=== PATIENT | male | born 1950 | race Hispanic/Latino ===

== ENCOUNTER 2016-11-07 11:37 | Inpatient (IN) | payer MEDICARE ==
[2016-11-07 11:50] VITALS: BMI 24.7
--- NOTE | 2016-11-07 12:17 | ED PDOC ---
Arrival/HPI - History of Present Illness Time/Duration: Prior to Arrival, < month Symptom Onset: Gradual Symptom Course: Worsening - General Chief Complaint: Weakness/Neurological Deficit Time Seen by Provider: 11/07/16 12:04 - History of Present Illness Narrative History of Present Illness (Text): 11/07/16 12:14 This is a 66 year old male with a PMH notable for DM, HTN, Parkinson's, glaucoma , and HLD presenting with generalized weakness in all 4 extremities x 1 month that became acutely worse this morning. The patient states that he was able to dress himself, but he was not able to navigate the walker for ambulation stating that he was too weak to support his weight on his feet and too weak to move the walker with his arms. The patient reports that this has been an ongoin issue that became acutely worse this morning. The patient reports full compliance with all of his medications. The patient denies fever, chills, chest pain, shortness of breath, abdominal pain, N/V/D/C, changes in bowel/ bladder, and extremity paresthesias. (Yusuf Ardon) Past Medical History - Provider Review Nursing Documentation Reviewed: Yes - Travel History Have you recently traveled outside [place] w/in the past 3 mons?: No - Infectious Disease Hx of Infectious Diseases: None - Tetanus Immunization Tetanus Immunization: Unknown - Cardiac Hx Cardiac Disorders: Yes Hx Hypertension: Yes - Pulmonary Hx Respiratory Disorders: No (SMOKED CIGARETTES PPD QUIT 5 YRS AGO) - Neurological Hx Neurological Disorder: Yes Hx Parkinson's Disease: Yes - HEENT Hx HEENT Disorder: Yes Hx Glaucoma: Yes - Renal Hx Renal Disorder: No - Endocrine/Metabolic Hx Diabetes Mellitus Type 2: Yes - Hematological/Oncological Hx Blood Disorders: No - Integumentary Hx Dermatological Disorder: No - Musculoskeletal/Rheumatological Hx Musculoskeletal Disorders: Yes Hx Falls: Yes Hx Unsteady Gait: Yes (CANE) - Gastrointestinal Hx Gastrointestinal Disorders: No (HERNIA REPAIR,STOMACH SURGERY?) - Genitourinary/Gynecological Hx Genitourinary Disorders: No - Psychiatric Hx Psychophysiologic Disorder: No (SMOKED CIGARETTES PPD QUIT) Hx Depression: No Hx Emotional Abuse: No Hx Physical Abuse: No Hx Substance Use: No - Surgical History Other/Comment: Hernia Repair - Anesthesia Hx Anesthesia: No Hx Anesthesia Reactions: No Hx Malignant Hyperthermia: No - Suicidal Assessment Feels Threatened In Home Enviroment: No - Patient History Narrative Patient History: This is a 66 year old male with a PMH notable for DM, HTN, Parkinson's, glaucoma , and HLD (Yusuf Ardon) Family/Social History - Physician Review Nursing Documentation Reviewed: Yes Family/Social History: No Known Family HX Smoking Status: Former Smoker Hx Alcohol Use: No Hx Substance Use: No Hx Substance Use Treatment: No Allergies/Home Meds Allergies/Adverse Reactions: Allergies No Known Allergies Allergy (Verified 11/07/16 11:47) Home Medications: Home Meds Medication Instructions Recorded Confirmed Atorvastatin Calcium [Lipitor] 10 mg PO DAILY 04/28/14 11/07/16 Bimatoprost [Lumigan 2.5 ml] 1 drop OU DAILY 04/28/14 11/07/16 Ramipril [Altace] 10 mg PO DAILY 04/28/14 11/07/16 Esomeprazole Magnesium [Nexium] 40 mg PO DAILY 02/04/16 11/07/16 QUEtiapine [SEROquel] 25 mg PO DAILY 02/04/16 11/07/16 amLODIPine [Norvasc] 5 mg PO DAILY 02/04/16 11/07/16 Brimonidine 0.2% [Alphagan 0.2% 1 drop OU BID 03/12/16 03/19/16 Opht] Trihexyphenidyl [Artane] 5 mg PO BID 03/12/16 11/07/16 metFORMIN [glucOPHAGE] 500 mg PO DAILY 03/12/16 11/07/16 Carbidopa/Levodopa 25/100 mg 0.5 tab PO Q12 11/07/16 11/07/16 [Sinemet] Review of Systems - Physician Review All systems were reviewed & negative as marked: Yes - Review of Systems Constitutional: absent: Fatigue, Fevers Eyes: absent: Vision Changes, Photophobia ENT: absent: Hearing Changes, Tinnitus Respiratory: absent: SOB, Cough Cardiovascular: absent: Chest Pain, Palpitations Gastrointestinal: absent: Abdominal Pain, Nausea, Vomiting Musculoskeletal: Back Pain, Neck Pain. absent: Arthralgias, Joint Swelling, Myalgias Skin: absent: Rash Neurological: Gait Changes, Other (Generalized Weakness). absent: Headache, Focal Weakness Endocrine: absent: Diaphoresis Hemo/Lymphatic: absent: Adenopathy Psychiatric: absent: Anxiety Physical Exam Vital Signs Reviewed: Yes Temperature: Afebrile Blood Pressure: Normal Pulse: Regular Respiratory Rate: Normal Appearance: Positive for: Well-Appearing, Non-Toxic, Comfortable Pain Distress: None Mental Status: Positive for: Alert and Oriented X 3 - Systems Exam Head: Present: Atraumatic, Normocephalic Pupils: Present: PERRL Extroacular Muscles: Present: EOMI Conjunctiva: Present: Normal Mouth: Present: Moist Mucous Membranes Neck: Present: Normal Range of Motion. No: Lymphadenopathy Respiratory/Chest: Present: Clear to Auscultation, Good Air Exchange. No: Respiratory Distress, Accessory Muscle Use Cardiovascular: Present: Regular Rate and Rhythm, Normal S1, S2. No: Murmurs Abdomen: Present: Normal Bowel Sounds. No: Tenderness, Distention, Peritoneal Signs Upper Extremity: Present: Normal Inspection, Normal ROM, NORMAL PULSES, Neurovascularly Intact, Other (5/5 strenght about the digits B/L, 4/5 symmetrical strength elbow and shoulder B/L). No: Cyanosis, Edema, Tenderness, Swelling, Erythema Lower Extremity: Present: Normal Inspection, NORMAL PULSES, Normal ROM, Neurovascularly Intact, Other (5/5 strength plantar and dorsiflexion B/L, 4/5 strength about B/L hip and knee). No: Edema, CALF TENDERNESS, Cyanosis, Deirdre' s Sign, Tenderness, Swelling, Erythema, Deformity Neurological: Present: GCS=15, CN II-XII Intact, Motor Func Grossly Intact, Normal Sensory Function, Norm Deep Tendon Reflexes, Memory Normal. No: Gait Normal Skin: Present: Warm, Dry, Normal Color. No: Rashes Psychiatric: Present: Alert, Oriented x 3 Vital Signs Temp Pulse Resp BP Pulse Ox 11/07/16 15:00 71 18 123/65 98 11/07/16 13:09 79 18 125/68 98 11/07/16 11:48 98.0 F 87 18 127/71 98 Medical Decision Making - Lab Interpretations I have reviewed the lab results: Yes Interpretation: No clinic. lab abnormalty - RAD Interpretation [place]: ED Physician, Radiologist - EKG Interpretation Interpreted by ED Physician: Yes Type: 12 lead EKG Comparison: Com.w/previous EKG ED Course and Treatment: 11/07/16 12:21 Impression: This is a 66 year old male with a PMH notable for DM, HTN, Parkinson's, glaucoma , and HLD presenting with generalized weakness in all 4 extremities x 1 month that became acutely worse this morning. The patient appears comfortable in bed. Gradual weakness has become acutely worse this morning the patient will be worked up to r/o a potential infectious cause for his weakness. Differential: Progression of Parkinsonism UTI Pneumonia Electrolyte Abnormality Plan: EKG CXR UA CBC, CMP, Mag, Phos Prior Visits: Progress Note: Patient seen and examined at the bedside. The patient is in no acute distress. Patient has grossly intact motor function. Patient exhibits weakness in the larger muscle groups. Patient pending workup for infectious vs electrochemical cause for his weakness. 11/07/16 14:21 Dr. Hernandez called for admission. The case was discussed in detail with him. He is amenable for admission to [facility] floor. Dr. Carr has requested Dr. Jose be on consult for neurology. The plan for admission was discussed with the patient and he is agreeable with admission. (Yusuf Ardon) Seen and examined with resident. 66 y/o M c history of Parkinson's disease, ambulates with cane/walker at baseline now with worsening weakness and unable to walk. On exam, has motor intact x 4, no focal deficit. (Jalen Hagan) - Lab Interpretations Lab Results: 11/07/16 13:00 11/07/16 13:00 Lab Results 11/07/16 13:00: WBC 5.7 D, RBC 4.63, Hgb 14.2, Hct 40.3 L, MCV 87.0, MCH 30.7, MCHC 35.2, RDW 12.7, Plt Count 251, MPV 10.4, Gran % 71.8 H, Lymph % (Auto) 19.5 L, Pitkin % (Auto) 6.8 H, Eos % (Auto) 1.2 L, Baso % (Auto) 0.7, Gran # 4.12 , Lymph # 1.1 L, Pitkin # 0.4, Eos # 0.1, Baso # 0.04, Sodium 136, Potassium 3.9, Chloride 99, Carbon Dioxide 24, Anion Gap 17, BUN 15, Creatinine 0.8, Est GFR ( Amer) > 60, Est GFR (Non-Af Amer) > 60, Random Glucose 142 H, Calcium 9.3, Phosphorus 3.7, Magnesium 2.4 H, Total Bilirubin 1.1, AST 24, ALT 15, Alkaline Phosphatase 106, Total Creatine Kinase 121, Total Protein 7.9, Albumin 4.5, Globulin 3.4, Albumin/Globulin Ratio 1.3 - RAD Interpretation Narrative RAD Interpretations (Text): No acute pulmonary pathology (Yusuf Ardon) Radiology Orders: 11/07/16 12:05 CHEST PORTABLE [RAD] Stat - EKG Interpretation EKG Interpretation (Text): 11/07/16 12:57 normal sinus rhythm. no acute ST or T wave abnormalities. Normal intervals ( Yusuf Ardon) Disposition/Present on Arrival - Present on Arrival Any Indicators Present on Arrival: No History of DVT/PE: No History of Uncontrolled Diabetes: No Urinary Catheter: No History of Decub. Ulcer: No History Surgical Site Infection Following: None - Disposition Have Diagnosis and Disposition been Completed?: Yes Disposition Time: 14:15 Patient Plan: Discharge - Disposition Diagnosis: Generalized weakness Condition: FAIR
--- NOTE | 2016-11-07 12:31 | RAD ---
HISTORY: generalized weakness COMPARISON: No prior. FINDINGS: LUNGS: No active pulmonary disease. Low-normal lung volumes PLEURA: No significant pleural effusion identified, no pneumothorax apparent. CARDIOVASCULAR: Normal. OSSEOUS STRUCTURES: Thoracic spondylosis bilateral shoulder arthrosis -deformity of the partially visualize left proximal humerus consistent with remote prior trauma. VISUALIZED UPPER ABDOMEN: Normal. OTHER FINDINGS: None. IMPRESSION: No active disease. Osseous findings as above
[2016-11-07 13:05] LABS: ADD MANUAL DIFF? NO
[2016-11-07 13:11] LABS: BASO # 0.04 K/mm3 (0.0-2.0); BASO % 0.7 % (0.0-3.0); EOS # 0.1 (0.0-0.7); EOS % 1.2 % (1.5-5.0); GRAN # 4.12 (1.4-6.5); GRAN % 71.8 % (50.0-68.0); HEMATOCRIT 40.3 % (42.0-52.0); LYMPH # 1.1 (1.2-3.4); LYMPH % 19.5 % (22.0-35.0); MEAN CORPUSCULAR HEMOGLOBIN 30.7 pg (25.0-35.0); MEAN CORPUSCULAR HGB CONC 35.2 g/dl (31.0-37.0); MEAN PLATELET VOLUME 10.4 fl (7.0-11.0); MONO # 0.4 (0.1-0.6); MONO % 6.8 % (1.0-6.0); PLATELET COUNT 251 10^3/uL (120.0-450.0); RED CELL DISTRIBUTION WIDTH 12.7 % (11.5-14.5); WHITE BLOOD COUNT 5.7 10^3/ul (4.5-11.0)
[2016-11-07 13:18] LABS: ALB/GLOB RATIO 1.3 (1.1-1.8); ALKALINE PHOSPHATASE 106 U/L (38-133); ALT/SGPT 15 U/L (7-56); AST/SGOT 24 U/L (15-59); BILIRUBIN,TOTAL 1.1 mg/dL (0.2-1.3); BLOOD UREA NITROGEN 15 mg/dL (7-21); CALCIUM 9.3 mg/dL (8.4-10.5); CARBON DIOXIDE 24 mmol/L (21-33); CHLORIDE 99 mmol/L (98-107); GFR AFRICAN-AMERICAN > 60; GLUCOSE,RANDOM 142 mg/dL (70-110); MAGNESIUM 2.4 mg/dL (1.7-2.2); PHOSPHOROUS 3.7 mg/dL (2.5-4.5); POTASSIUM 3.9 mmol/L (3.6-5.0); SODIUM 136 mmol/L (132-148); TOTAL PROTEIN 7.9 g/dL (5.8-8.3)
[2016-11-07 16:12] LABS: URINE BILIRUBIN NEGATIVE (NEGATIVE); URINE BLOOD TRACE-LYSED (NEGATIVE); URINE GLUCOSE (UA) NEGATIVE (NEGATIVE); URINE KETONE 40 mg/dL (NEGATIVE); URINE LEUKOCYTE ESTERASE NEGATIVE Leu/uL (NEGATIVE); URINE PROTEIN TRACE mg/dL (<30 mg/dL); URINE UROBILINOGEN 0.2 E.U./dL (<1 E.U./dL)
[2016-11-07 16:18] LABS: URINE APPEARANCE CLEAR (CLEAR); URINE COLOR YELLOW (YELLOW)
--- NOTE | 2016-11-07 17:24 | CARD ---
APPROVED REPORT EKG Measurement Heart [id number] <Conclusion> Normal sinus rhythm Normal ECG
[2016-11-07 17:57] LABS: URINE BACTERIA SMALL (NEG); URINE EPITHELIAL CELLS 0 - 2 /hpf (0-5); URINE RBC 0 - 2 /hpf (0-2); URINE WBC 0 - 2 /hpf (0-6)
[2016-11-07] MEDS ORDERED: Pneumococcal 23-Valent Vaccine IM ONE (18:39)
[2016-11-07] MEDS ORDERED: Influenza Vaccine 45 MCG/0.5 ml IM ONE (18:39)
[2016-11-07] MEDS: Brimonidine 0.15% 50 DROP/5 ML BOTTLE OU SCH (18:46)
[2016-11-07] MEDS: Carbidopa/Levodopa 25/250 PO SCH (22:25)
[2016-11-07] MEDS: Insulin Reg-LOW-Coverage SC SCH (22:28)
[2016-11-08] MEDS: Pantoprazole 40 mg EC Tab PO SCH (06:47)
[2016-11-08] MEDS: Insulin Reg-LOW-Coverage SC SCH ×4 (08:06→23:14)
--- NOTE | 2016-11-08 09:11 | HP ---
CHIEF COMPLAINT AND HISTORY OF PRESENT ILLNESS: This is a 66-year-old male who is coming into the [facility] with complaints of weakness. He has difficulty in ambulating. The patient has no complaints of any nausea. He has no fevers or chills. He says he has been weak for the past few weeks. He is not able to walk at this point and has had near falls. He has no complaints of any focal weakness. No chest pain, no shortness of breath, no nausea, no vomiting, no dysuria, no frequency, no nocturia. ALLERGIES: No known drug allergies. HOME MEDICATIONS: Lipitor, Altace, Nexium, Seroquel, Norvasc, Alphagan, Artane, Sinemet. PAST MEDICAL HISTORY: 1. Dyslipidemia. 2. Glaucoma. 3. Hypertension. 4. Diabetes type 2. 5. Parkinson's. 6. Left femur fracture. 7. L4-L5 disk herniation. SOCIAL HISTORY: He was a smoker, but quit about 6 years ago. He lives with his brother, Chinmay. He denies smoking currently or drug abuse. FAMILY HISTORY: Noncontributory. PHYSICAL EXAMINATION: VITAL SIGNS: Temperature is 97, pulse of 71, blood pressure is 144/77, respirations 19, O2 saturatio n 97%. Height is 5 feet 7 inches, weight is 158 pounds, BMI is 24.7. GENERAL: The patient lying in bed, flat, and in no apparent distress. HEAD AND NECK EXAM: Atraumatic, normocephalic. Conjunctivae are pink. Throat clear and mouth with moist mucosa. Oropharynx benign. EYES: Extraocular movements are intact. PERRLA. NECK: Supple. No JVD, thyromegaly, or adenopathy. No bruits. HEART: S1 and S2 regular rate and rhythm. No murmurs, rubs, or gallops. LUNGS: Clear to auscultation bilaterally. No wheezing rales or rhonchi appreciated. No retraction s on exam. ABDOMEN: Soft, nontender, nondistended. Bowel sounds are positive in all quadrants. No rebound. No hepatosplenomegaly. EXTREMITIES: No cyanosis, clubbing, or edema. NEUROLOGIC: No facial asymmetry, tongue is midline, no uvula deviation. Power is 5/5 in upper extr emity and 5/5 in lower extremity. Sensation is normal in upper extremity and lower extremity. PSYCHIATRIC: Awake, alert, oriented x 3. No anxiety or depression symptoms. Good insight. Ashley l affect. GENITOURINARY: No CVA tenderness VASCULAR: 2+ pulses in carotid and pedal pulses. SKIN: No erythema or abnormal nodules noted. SPINE: Normal curvature. LYMPHADENOPATHY: No anterior cervical or posterior cervical adenopathy. No inguinal adenopathy. LABORATORIES: White count 5.7, hemoglobin is 14.2, platelet count is 251. Chemistry shows a sodium 136, potassium is 3.9, the magnesium is 2.4, albumin is 4.5. Urine shows protein is trace, ketones 4 0, blood is trace, nitrites are negative, bilirubin is negative. EKG shows sinus rhythm with a heart rate of 90, QTc is 462. Chest x-ray shows no active disease. ASSESSMENT: 1. Fall. 2. Parkinson's. 3. L4-L5 disk herniation. 4. Glaucoma. 5. Hypertension. 6. Diabetes type 2. 7. Dyslipidemia. PLAN: The patient is currently comfortable. I did speak to the patient's brother, who says the nena ent has not been able to walk. They have stairs at home as well. The patient is going to be on Bruno ce for his hypertension. The patient is on Artane. He is going to continue with his Sinemet for his Parkinson's. The patient is on tramadol for pain. He is on metformin for his diabetes. He is on i nsulin sliding scale. The patient is on Seroquel for his psychiatric illness. He also has anxiety. The patient will be seen by Dr. Keith, who is his psychiatrist. The patient is on a regular diet. Physical therapy has been ordered. It is an unsafe discharge for him. Capo Strauss MD cc: [id number] TT: 11/08/2016 09:10:58 en
[2016-11-08] MEDS: Brimonidine 0.15% 50 DROP/5 ML BOTTLE OU SCH ×2 (09:52→17:21)
[2016-11-08] MEDS: Latanoprost 2.5 ml Opht Soln OU SCH (09:52)
[2016-11-08] MEDS: Carbidopa/Levodopa 25/250 PO SCH ×2 (09:53→23:15)
--- NOTE | 2016-11-08 16:52 | CON ---
DATE: 11/08/2016 HISTORY OF PRESENT ILLNESS: The patient is a 66-year-old white male brought to the Emergency Room by a brother. The patient for the past 1-2 days has had extreme difficulty walking. I reviewed the art, spoke to the patient's brother. The patient states that he generally feels weak and has trouble walking. The patient's brother states he has been eating and been sleeping normally with no other c omplaints. PAST MEDICAL HISTORY: He has a long history of chronic schizophrenia. He has a long history of Park inson's disease. The patient has been on major tranquilizers for many years, most recently Seroquel 25 mg at bedtime. He has glaucoma. He has L4-L5 disk herniation, hypertension, diabetes mellitus an d dyslipidemia. CURRENT LABORATORY DATA: As [id number]: On 08/16/2016, the patient had a brain MRI which showed moderat e chronic white matter and basal nuclei ischemic changes, localized fairly significant, both parietal and posterior frontal areas. He has cortical atrophic changes. On his current admission, he has an electrocardiogram which revealed normal sinus rhythm, QTC interval corrected of 462. He had a shady l chest x-ray. The patient on 10/04/16 had an electroencephalogram consistent with bilateral cerebral dysfunction. No other abnormalities. His CBC is essentially within normal range. His metabolic pr ofile is all normal except for mildly elevated glucose of 142. The patient's urine is clear, trace o f protein. PERSONAL HISTORY: He is unmarried, lives with a brother. He is on social security. He lives in the family home. No history of substance or alcohol abuse. The patient is known to me for many years. CURRENT MEDICATIONS: Include Alphagan, Altace, Artane 5 mg daily, Glucophage, Lipitor, Norvasc, Prot keely, Seroquel 25 mg at bedtime, Sinemet 0.5 mg tab q. 12 hours, Ultram 50 mg b.i.d., Xalatan ophthal edmond solution. PHYSICAL EXAMINATION: VITAL SIGNS: Blood pressure 144/77, pulse 71, afebrile, respirations 19 per minute. PSYCHIATRIC: His mental status: He is awake. He has some hebephrenic demeanor, but he is alert. R ecognizes me. Oriented x 3. His memory is generally intact. His judgment is fair. He has a certai n ambivalence to his current problems. He understands that he needs physical therapy at another faci lity. Denies hallucinations, paranoia, suicidal ideation, or depression. IMPRESSION: Chronic undifferentiated schizophrenia. He has Parkinson's disease. He has hyperlipide essie, diabetes mellitus and hypertension. He has gait dysfunction and glaucoma. PLAN: Would continue Seroquel, order vitamin D level. We will order thyroid function studies. We w ill monitor mental status as long as he is here in the hospital. If he goes to an acute rehab, he wi ll need psychiatric followup up at that facility. Graham Keith MD cc: [id number] TT: 11/08/2016 16:51:34 Confirmation # [id number] Dictation # [id number] tn
[2016-11-09] MEDS: Pantoprazole 40 mg EC Tab PO SCH (06:51)
[2016-11-09] MEDS: Insulin Reg-LOW-Coverage SC SCH ×4 (08:01→22:00)
[2016-11-09 08:13] LABS: FREE T4 1.22 ng/dL (0.78-2.19)
--- NOTE | 2016-11-09 08:18 | PN ---
DATE: 11/09/2016 The patient has no complaints of any chest pain or shortness of breath, no headaches or dizziness. Temperature is 98.4, pulse is 77, blood pressure 108/65, respiration is 20. GENERAL: The patient comfortable, in no acute distress. HEENT: Anicteric sclerae. Moist mucosa. NECK: No JVD or adenopathy. CARDIAC: S1/S2. No murmurs. No rubs. Regular. RESPIRATORY: Clear to auscultation bilaterally. No wheezes, rales, or rhonchi. Good air entry. ABDOMEN: Bowel sounds are positive, soft, nontender, and nondistended. EXTREMITIES: No edema. Has 1+ pulses. LABORATORY DATA: White count of 5.7, hemoglobin 14.2, creatinine is 0.8. ASSESSMENT: 1. Fall. 2. Parkinson's. 3. L4-L5 disk herniation. 4. Glaucoma. 5. Diabetes type 2. 6. Dyslipidemia. 7. Chronic undifferentiated schizophrenia. PLAN: The patient has difficulty in ambulating. He has a history of chronic undifferentiated schizo phrenia that is being followed by Dr. Keith. I appreciate his input. The patient is going to be on his ramipril for his hypertension. He received a flu shot. He is on a mlodipine for his hypertension. He is on Seroquel for his schizophrenia. He is on carbidopa/levodop a for his Parkinson's. He is receiving metformin for his diabetes. He is on insulin sliding scale. His sugars have been controlled. I did speak to the patient's brother yesterday, Chinmay, to give hi m an update on the patient's diagnosis and plan of care. He will benefit from subacute rehab, and th e patient is agreeable. The patient's daughter states she will talk to the patient, as he is not ana e if he is interested in going. Capo Strauss MD cc: [id number] TT: 11/09/2016 08:18:39 Confirmation # [id number] Dictation # [id number] priscila
[2016-11-09 08:27] LABS: THYROID STIMULATING HORMONE 0.28 mIU/mL (0.46-4.68)
[2016-11-09] MEDS: Brimonidine 0.15% 50 DROP/5 ML BOTTLE OU SCH ×2 (09:21→17:45)
[2016-11-09] MEDS: Carbidopa/Levodopa 25/250 PO SCH ×2 (09:23→22:22)
[2016-11-09] MEDS: Latanoprost 2.5 ml Opht Soln OU SCH (09:23)
[2016-11-09 17:23] VITALS: RESP 20
[2016-11-09] MEDS: Ergocalciferol 50,000 Intl Units Cap PO SCH (18:18)
--- NOTE | 2016-11-09 18:41 | PN ---
DATE: 11/09/2016 The patient is a 66-year-old male currently admitted to the hospital for gait dysfunction. He has a history of schizophrenia, which has been under treatment for for many years. He also has a history o f Parkinson's disease. 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 The patient's mental status today reveals that he is awake, alert, coherent, lucid and understands the nature of his problems and understand future plans for acute rehabilitation. He is oriented x 3. No hallucinations, paranoia or suicidal ideati on. The patient is oriented to all spheres. PATIENT'S CURRENT LABORATORY DATA: The only new laboratory data is a glucose of 198. He has a vitam in D level of 19.1 and a TSH of . THE PATIENT'S CURRENT MEDICATIONS: Include Alphagan for glaucoma, Altace, Artane, Fluvirin which he had once, Glucophage, Humulin low dose protocol, Lipitor, Norvasc, Protonix, Seroquel 25 mg at bedtim e and Sinemet half a tablet of 25/250 q.12 hours. He is on Ultram p.r.n. for pain and Xalatan ophtha lmic solution. THE PATIENT'S CURRENT VITAL SIGNS: Blood pressure is 110/64, pulse 79, respiration 20 per minute and O2 saturation is 90% on room air. He is afebrile. IMPRESSION: Chronic schizophrenia. He has a gait dysfunction. He has glaucoma. He has L4-5 disk herniation, diabetes mellitus and dyslipidemia. PLAN: I will order Drisdol 50,000 international units once a week. We will also put him on vitamin D 2000 international units daily add will continue to monitor mental status. Graham Keith MD cc: [id number] TT: 11/09/2016 18:41:13 Confirmation # [id number] Dictation # [id number] sn
[2016-11-10] MEDS: Pantoprazole 40 mg EC Tab PO SCH (06:31)
[2016-11-10 08:38] VITALS: TEMP 98.7; O2SAT 98
[2016-11-10] MEDS: Insulin Reg-LOW-Coverage SC SCH (08:57)
[2016-11-10] MEDS: Carbidopa/Levodopa 25/250 PO SCH (09:56)
[2016-11-10] MEDS: Ergocalciferol 50,000 Intl Units Cap PO SCH (09:57)
[2016-11-10 10:02] VITALS: BP 119/69; PULSE 64
[2016-11-10] MEDS: Brimonidine 0.15% 50 DROP/5 ML BOTTLE OU SCH (10:03)
[2016-11-10] MEDS: Latanoprost 2.5 ml Opht Soln OU SCH (10:03)
--- NOTE | 2016-11-11 00:26 | DS ---
DISCHARGE DIAGNOSES: 1. Weakness. 2. Parkinson's disease. 3. Granulocytosis, monocytosis. 4. Diabetes mellitus type 2. 5. Back pain. HOSPITAL COURSE: The patient was admitted with generalized weakness, failure to thrive, difficulty i n ambulating. He was not able to walk. Psych consultation with Dr. Keith was requested for schizop hrenia. 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 His home medications continued during hospitalization. His condition improved during hospitalization. He is being discharged in stable co ndition. PHYSICAL EXAMINATION ON DISCHARGE: VITAL SIGNS: Temperature 98.7, heart rate 70 per minute, blood pressure 140/70, respiratory 18 per m inute, oxygen saturation 98% room air. HEENT: Normal. NECK: No lymphadenopathy. CHEST: Air entry present, equal bilateral. No added sound. CARDIOVASCULAR: S1, S2 normal. No murmur, no gallop. ABDOMEN: Soft, nontender, nondistended. No hepatosplenomegaly. EXTREMITIES: No edema, no cyanosis, no clubbing. NEUROLOGIC: Alert and oriented x 3, no focal sensorimotor deficit. Skin: Intact, warm, dry. No skin breakdown. LABORATORY DATA: White count 5.7, hemoglobin 14.2, hematocrit 43.3, platelets 251. Granulocytosis 7 1%, monocytes 6.8%. Glucose 122. CONDITION ON DISCHARGE: Stable. DISPOSITION: Discharged home. HOME MEDICATIONS: Norvasc 5 mg daily, Lipitor 10 mg daily, carbidopa/levodopa 0.5 mg q. 12 hours, v itamin D daily, metformin 500 mg p.o. daily, Protonix 40 mg daily, Seroquel 25 mg p.o. at bedtime, Al tace 10 mg daily, Ultram 50 mg p.o. b.i.d. DIET: As tolerated. ACTIVITIES: As tolerated. Discharge instructions given to the patient, discussed with the staff and nurse. Follow up with Dr. Strauss in 1 week. Time spent in preparing discharge and coordinating care, 45 minutes. Digna Sahu MD cc: [id number] TT: 11/11/2016 00:26:32
== END 2016-11-10 12:59 | DRG 57 ==
LOC: ED 11:37 → ERH 14:27 → 3RSO 16:40
PROVIDERS: ADMIT Internal Medicine Nephrology; ATTEND Internal Medicine Nephrology
DX: G20 Parkinson's disease (principal); E87.8 Other disorders of electrolyte and fluid balance, not elsewhere classified; F02.80 Dementia in other diseases classified elsewhere, unspecified severity, without behavioral disturbance, psychotic disturbance, mood disturbance, and anxiety; N39.0 Urinary tract infection, site not specified; E11.9 Type 2 diabetes mellitus without complications; I10 Essential (primary) hypertension; D72.821 Monocytosis (symptomatic); F20.5 Residual schizophrenia; E78.5 Hyperlipidemia, unspecified; H40.9 Unspecified glaucoma; M51.26 Other intervertebral disc displacement, lumbar region; R62.7 Adult failure to thrive; Z79.899 Other long term (current) drug therapy; Z87.891 Personal history of nicotine dependence; R26.81 Unsteadiness on feet; R40.2412 Glasgow coma scale score 13-15, at arrival to emergency department; Z87.81 Personal history of (healed) traumatic fracture; F41.9 Anxiety disorder, unspecified; R53.1 Weakness; M54.9 Dorsalgia, unspecified

== ENCOUNTER 2016-12-03 20:25 | Observation (INO) | payer MEDICARE ==
[2016-12-03 20:33] VITALS: BMI 26.6
--- NOTE | 2016-12-03 20:45 | ED PDOC ---
Arrival/HPI - General Chief Complaint: Weakness/Neurological Deficit Time Seen by Provider: 12/03/16 20:26 Historian: Patient - History of Present Illness Narrative History of Present Illness (Text): 12/03/16 20:40 A 66 year old male, whose past medical history includes Parkinson's disease, diabetes, hypertension and dyslipidemia, was brought into the emergency department by EMS for episodes of slurred speech since this morning. According to patients outside sales consultant, patient has been acting confused and slightly catatonic appearing at times. Patient denies any fever, chills, nausea, vomiting, abdominal pain, chest pain, shortness of breath, upper or lower extremity weakness, headache, dizziness or any other complaints. PMD: Dr. Hagan Time/Duration: Other (This morning) Symptom Course: Unchanged Quality: Other Context: Other Past Medical History - Provider Review Nursing Documentation Reviewed: Yes - Infectious Disease Hx of Infectious Diseases: None - Tetanus Immunization Tetanus Immunization: Unknown - Cardiac Hx Cardiac Disorders: Yes Hx Hypertension: Yes - Pulmonary Hx Respiratory Disorders: No (SMOKED CIGARETTES PPD QUIT 5 YRS AGO) - Neurological Hx Neurological Disorder: Yes Hx Parkinson's Disease: Yes (hand tremors at times/dx 2 1/2 yrs ago) - HEENT Hx HEENT Disorder: Yes (eyeglasses) Hx Glaucoma: Yes - Renal Hx Renal Disorder: No - Endocrine/Metabolic Hx Diabetes Mellitus Type 2: Yes - Hematological/Oncological Hx Blood Disorders: No - Integumentary Hx Dermatological Disorder: Yes Other/Comment: bruises to knees - Musculoskeletal/Rheumatological Hx Falls: Yes (recent frequent) - Gastrointestinal Hx Gastrointestinal Disorders: No - Genitourinary/Gynecological Hx Genitourinary Disorders: No - Psychiatric Hx Psychophysiologic Disorder: No (SMOKED CIGARETTES PPD QUIT, 5 yrs ago) Hx Depression: No Hx Emotional Abuse: No Hx Physical Abuse: No Hx Substance Use: No - Surgical History Other/Comment: Hernia Repair umbilical, ?stomach sx thicks he had obstruction not sure, - Anesthesia Hx Anesthesia: No Hx Anesthesia Reactions: No Hx Malignant Hyperthermia: No - Suicidal Assessment Feels Threatened In Home Enviroment: No Family/Social History - Physician Review Nursing Documentation Reviewed: Yes Family/Social History: No Known Family HX Smoking Status: Former Smoker Hx Alcohol Use: No Hx Substance Use: No Hx Substance Use Treatment: No Allergies/Home Meds Allergies/Adverse Reactions: Allergies No Known Allergies Allergy (Verified 11/07/16 11:47) Home Medications: Home Meds Medication Instructions Recorded Confirmed Atorvastatin Calcium [Lipitor] 10 mg PO DAILY 04/28/14 12/05/16 Bimatoprost [Lumigan 2.5 ml] 1 drop OU DAILY 04/28/14 12/03/16 Ramipril [Altace] 10 mg PO DAILY 04/28/14 12/05/16 Esomeprazole Magnesium [Nexium] 40 mg PO DAILY 02/04/16 12/03/16 QUEtiapine [SEROquel] 25 mg PO DAILY 02/04/16 12/05/16 amLODIPine [Norvasc] 5 mg PO DAILY 02/04/16 12/05/16 Brimonidine 0.2% [Alphagan 0.2% 1 drop OU BID 03/12/16 12/03/16 Opht] Trihexyphenidyl [Artane] 5 mg PO BID 03/12/16 12/03/16 metFORMIN [glucOPHAGE] 500 mg PO DAILY 03/12/16 12/05/16 Carbidopa/Levodopa 25/100 mg 0.5 tab PO Q12 11/07/16 12/05/16 [Sinemet] Tramadol HCl [Ultram] 50 mg PO BID 11/07/16 12/03/16 Review of Systems - Physician Review All systems were reviewed & negative as marked: Yes - Review of Systems Constitutional: absent: Fevers, Night Sweats Respiratory: absent: SOB Cardiovascular: absent: Chest Pain Gastrointestinal: absent: Abdominal Pain, Nausea, Vomiting Neurological: Speech Changes (Slurred speech). absent: Headache, Dizziness, Other (Upper or lower extremity weakness or numbness) Physical Exam Vital Signs Temp Pulse Resp BP Pulse Ox 12/03/16 20:25 98.4 F 66 16 129/64 99 Appearance: Positive for: Well-Appearing, Non-Toxic, Comfortable Pain Distress: None Mental Status: Positive for: Alert and Oriented X 3 - Systems Exam Head: Present: Atraumatic, Normocephalic Pupils: Present: PERRL Extroacular Muscles: Present: EOMI Conjunctiva: Present: Normal Mouth: Present: Moist Mucous Membranes Neck: Present: Normal Range of Motion Respiratory/Chest: Present: Clear to Auscultation, Good Air Exchange. No: Respiratory Distress, Accessory Muscle Use Cardiovascular: Present: Regular Rate and Rhythm, Normal S1, S2. No: Murmurs Abdomen: Present: Normal Bowel Sounds. No: Tenderness, Distention, Peritoneal Signs Back: Present: Normal Inspection Upper Extremity: Present: Normal Inspection. No: Cyanosis, Edema Lower Extremity: Present: Normal Inspection. No: Edema Neurological: Present: GCS=15, CN II-XII Intact, Motor Func Grossly Intact, Normal Sensory Function, Normal Cerebellar Funct, Gait Normal, Other (speech with slight slurring) Skin: Present: Warm, Dry, Normal Color. No: Rashes Psychiatric: Present: Alert, Oriented x 3, Normal Insight, Normal Concentration Medical Decision Making ED Course and Treatment: 12/03/16 20:40 Impression: A 66 year old male with episodes of slurred speech. Patient denies any upper or lower extremity weakness, headache, dizziness, chest pain, shortness of breath or any other complaints. Plan: -- Head CT -- Chest xray -- EKG -- Labs -- Reassess and disposition Progress Notes: Code stroke called at 20:30. 12/03/16 21:04 CT Head results reviewed: IMPRESSION: Streak artifact limits evaluation of the skull base. No evidence of acute intracranial hemorrhage. CT can miss an acute nonhemorrhagic CVA. It should be noted that acute strokes may be initially radiologically occult on CT. If the patient is having persistent stroke like symptomatology, then MRI may be beneficial. 12/03/16 21:59 EKG interpreted by me: NSR @ 63 bpm. inferior infarct. Non specific ST-T changes. Case discussed with Dr. Strauss who accepts patient under his service. Dr. Jose notified about the case.Pt. not a rTPA candidate/ symptoms have resolved.ASA was given. - Lab Interpretations Lab Results: 12/03/16 20:45 12/03/16 20:45 Lab Results 12/03/16 20:45: Blood Type B POSITIVE, Antibody Screen Negative, BBK History Checked Patient has bt 12/03/16 20:45: Hemoglobin A1c 6.8 H D 12/03/16 20:45: Sodium 139, Potassium 4.1, Chloride 98, Carbon Dioxide 31, Anion Gap 14, BUN 16, Creatinine 0.8, Est GFR ( Amer) > 60, Est GFR (Non- Af Amer) > 60, Random Glucose 148 H, Calcium 9.5, Total Bilirubin 0.8, AST 17, ALT 30, Alkaline Phosphatase 106, Troponin I < 0.01, Total Protein 8.1, Albumin 4.5, Globulin 3.7, Albumin/Globulin Ratio 1.2, Triglycerides 116, Cholesterol 148, LDL Cholesterol Direct 68, HDL Cholesterol 56 12/03/16 20:45: PT 10.9, INR 1.01, APTT 24.8 12/03/16 20:45: WBC 7.4 D, RBC 4.44, Hgb 13.4 L, Hct 38.6 L, MCV 86.9, MCH 30.2 , MCHC 34.7, RDW 13.1, Plt Count 247, MPV 10.8, Gran % 71.0 H, Lymph % (Auto) 18.3 L, Vilas % (Auto) 8.7 H, Eos % (Auto) 1.6, Baso % (Auto) 0.4, Gran # 5.22, Lymph # 1.4, Vilas # 0.6, Eos # 0.1, Baso # 0.03 I have reviewed the lab results: Yes - RAD Interpretation Narrative RAD Interpretations (Text): EXAM: CT Head Without Intravenous Contrast FINDINGS: Brain: Areas of decreased attenuation noted within the periventricular and subcortical white matter likely related to chronic microangiopathic ischemic changes given the patient's stated age.Streak artifact limits evaluation of the skull base. No evidence of acute intracranial hemorrhage. Correlate clinically. There is moderate diffuse cerebral atrophy present, consistent with this patient's age. Bilateral basal ganglia calcifications. Ventricles: Unremarkable. No ventriculomegaly. Bones/joints: No displaced fracture. Soft tissues: Unremarkable. Sinuses: Unremarkable as visualized. No acute sinusitis. Mastoid air cells: Unremarkable as visualized. No mastoid effusion. IMPRESSION: Streak artifact limits evaluation of the skull base. No evidence of acute intracranial hemorrhage. CT can miss an acute nonhemorrhagic CVA. It should be noted that acute strokes may be initially radiologically occult on CT. If the patient is having persistent stroke like symptomatology, then MRI may be beneficial. Radiology Orders: 12/03/16 20:31 HEAD W/O (CODE STROKE) [CT] Stat CHEST PORTABLE [RAD] Stat Threading Machine Operator: Radiologist - Medication Orders Current Medication Orders: Amlodipine Besylate (Norvasc) 5 mg PO DAILY [facility] Last Admin: 12/05/16 09:16 Dose: 5 mg Aspirin (Ecotrin) 81 mg PO DAILY [facility] Last Admin: 12/05/16 09:16 Dose: 81 mg Atorvastatin Calcium (Lipitor) 10 mg PO DAILY [facility] Last Admin: 12/05/16 09:14 Dose: 10 mg Carbidopa/Levodopa (Sinemet) 0.5 tab PO Q12 [facility] Last Admin: 12/05/16 09:15 Dose: 0.5 tab Metformin HCl (Glucophage) 500 mg PO DAILY [facility] Last Admin: 12/05/16 09:15 Dose: 500 mg Non-Formulary Medication (Bimatoprost [Lumigan]) 1 drop OU DAILY [facility] Last Admin: 12/05/16 09:16 Dose: Non-Formulary Medication (Brimonidine 0.2% [Alphagan 0.2% Opht]) 1 drop OU BID [facility] Last Admin: 12/05/16 09:16 Dose: Quetiapine Fumarate (Seroquel) 25 mg PO DAILY [facility] Last Admin: 12/05/16 09:14 Dose: 25 mg Ramipril (Altace) 10 mg PO DAILY [facility] Last Admin: 12/05/16 09:15 Dose: 10 mg Tramadol HCl (Ultram) 50 mg PO Q4 PRN PRN Reason: Pain, Mild (1-3) Last Admin: 12/05/16 00:45 Dose: 50 mg Re-Assess: JAY Pain Assessment Document 12/05/16 01:45 (Rec: 12/05/16 04:11 [id number]) Pain Reassessment Is this a pain reassessment? Yes Sleep Is patient sleeping during reassessment? Yes Discontinued Medications Aspirin (Aspirin) 325 mg PO ONCE STA Stop: 12/03/16 21:44 Last Admin: 12/04/16 00:00 Dose: 325 mg Bismuth Subsalicylate (Pepto-Bismol) 262 mg PO ONCE ONE Stop: 12/04/16 15:58 Last Admin: 12/04/16 17:23 Dose: 262 mg Non-Formulary Medication (Quetiapine [Seroquel]) 25 mg PO DAILY [facility] NIHSS Scale (Cascade) Time Performed: 20:26 - How Severe is the Stoke Baseline Level of Consciousness: 0=Alert LOC to Questions: 0=Both comments correct LOC to commands: 0=Obeys both correctly Best Gaze: 0=Normal Visual: 0=No visual loss Facial: 0=Normal Motor Arm - Left: 0=No drift Motor Arm - Right: 0=No drift Motor Leg - Left: 0=No drift Motor Leg - Right: 0=No drift Limb Ataxia: 0=Absent Sensory: 0=Normal Best Language: 0=No aphasia Dysarthia: 1=Mild to moderate slurring Extinction & Inattention (Neglect): 0=Normal, no object Score: 1 Risk Level: Minor Stroke Risk rTPA Inclusion/Exclusion - Refusal of Treatment Patient Refused Treatment: No - Inclusion Criteria for Altepase Patient is 18 years or Older: Yes The Clinical Diagnosis of Ischemic Stroke That is Causing a Potentially Disabling Neurological Deficit: No Time of Onset is Well Established to be Less Than 270 Minute Before Treatment Would Begin: No Risk/Benefit Discussed With Patient/Family Member Present: Yes - Exclusion Criteria for Altepase Uncontrolled Hypertension at Time of Treatment (Systolic BP above 185 or Diastolic BP above 110 mmHg): No Active Internal Bleeding: No Known Bleeding Diathesis Including but Not Limited to: Platelets Below 100,000/ mm,PTT Above 40 sec After Heparin Use, Current Use of Oral Anitcoagulant With INR Greater Than 1.7 or PT Greater Than 15 secs: No Evidence of an Intracranial Hemorrhage: No Evidence of Major Acute Infarct With Signs Greater Than 1/3 MCA Territory: No Suspicion of Subarachnoid Hemorrhage on Pretreatment Evaluation Even if CT Head Negative For Hemorrhage: No - Warning to TPA With Conditions Following Conditions Weighed Against Anticipated Benefit: Yes Condition: Stroke Serevity Too Mild, Rapid Improvement - Scribe Statement The provider has reviewed the documentation as recorded by the Irma Marinelli Provider Scribe Attestation: All medical record entries made by the Irma were at my direction and personally dictated by me. I have reviewed the chart and agree that the record accurately reflects my personal performance of the history, physical exam, medical decision making, and the department course for this patient. I have also personally directed, reviewed, and agree with the discharge instructions and disposition. Disposition/Present on Arrival - Present on Arrival Any Indicators Present on Arrival: No History of DVT/PE: No History of Uncontrolled Diabetes: No Urinary Catheter: No History of Decub. Ulcer: No History Surgical Site Infection Following: None - Disposition Have Diagnosis and Disposition been Completed?: Yes Diagnosis: TIA (transient ischemic attack) Disposition: HOSPITALIZED Disposition Time: 22:00 Patient Plan: Observation Patient Problems: Current Active Problems Problem Status Onset TIA (transient ischemic attack) Acute Condition: STABLE
[2016-12-03 21:05] LABS: ADD MANUAL DIFF? NO
[2016-12-03 21:10] LABS: BASO # 0.03 K/mm3 (0.0-2.0); BASO % 0.4 % (0.0-3.0); EOS # 0.1 (0.0-0.7); EOS % 1.6 % (1.5-5.0); GRAN # 5.22 (1.4-6.5); HEMATOCRIT 38.6 % (42.0-52.0); LYMPH # 1.4 (1.2-3.4); LYMPH % 18.3 % (22.0-35.0); MEAN CELL VOLUME 86.9 fL (80.0-105.0); MEAN CORPUSCULAR HEMOGLOBIN 30.2 pg (25.0-35.0); MEAN CORPUSCULAR HGB CONC 34.7 g/dl (31.0-37.0); MEAN PLATELET VOLUME 10.8 fl (7.0-11.0); MONO # 0.6 (0.1-0.6); MONO % 8.7 % (1.0-6.0); PLATELET COUNT 247 10^3/uL (120.0-450.0); RED CELL DISTRIBUTION WIDTH 13.1 % (11.5-14.5); WHITE BLOOD COUNT 7.4 10^3/ul (4.5-11.0)
[2016-12-03 21:22] LABS: ALB/GLOB RATIO 1.2 (1.1-1.8); ALKALINE PHOSPHATASE 106 U/L (38-133); ALT/SGPT 30 U/L (7-56); AST/SGOT 17 U/L (15-59); BILIRUBIN,TOTAL 0.8 mg/dL (0.2-1.3); BLOOD UREA NITROGEN 16 mg/dL (7-21); CALCIUM 9.5 mg/dL (8.4-10.5); CARBON DIOXIDE 31 mmol/L (21-33); CHLORIDE 98 mmol/L (98-107); CHOLESTEROL 148 mg/dL (130-200); GFR AFRICAN-AMERICAN > 60; GLUCOSE,RANDOM 148 mg/dL (70-110); POTASSIUM 4.1 mmol/L (3.6-5.0); SODIUM 139 mmol/L (132-148); TOTAL PROTEIN 8.1 g/dL (5.8-8.3)
[2016-12-03 21:29] LABS: INR 1.01 (0.93-1.08); PARTIAL THROMBOPLASTIN TIME 24.8 Seconds (23.7-30.8)
[2016-12-03 21:35] LABS: TROPONIN I < 0.01 ng/mL
--- NOTE | 2016-12-04 07:23 | CT ---
PROCEDURE: CT HEAD WITHOUT CONTRAST. HISTORY: Code Stroke COMPARISON: None available. TECHNIQUE: Axial computed tomography images were obtained through the head/brain without intravenous contrast. Radiation dose: Total exam DLP = 1793.49 mGy-cm. This CT exam was performed using one or more of the following dose reduction techniques: Automated exposure control, adjustment of the mA and/or kV according to patient size, and/or use of iterative reconstruction technique. FINDINGS: HEMORRHAGE: No intracranial hemorrhage. BRAIN: No mass effect or edema. Moderate to severe cortical atrophy particularly left convexity and right high parietal. Mild moderate periventricular white matter lucency with patchy remote ischemic change in the coronal radiata bilaterally, unchanged from prior examination, consistent with microvascular ischemic change. No evidence of acute infarct. VENTRICLES: Unremarkable. No hydrocephalus. CALVARIUM: Unremarkable. PARANASAL SINUSES: Unremarkable as visualized. No significant inflammatory changes. MASTOID AIR CELLS: Unremarkable as visualized. No inflammatory changes. OTHER FINDINGS: None. IMPRESSION: No intracranial mass, hemorrhage or evidence of acute infarct. If clinical symptoms of CVA persist consider evaluation with magnetic resonance imaging. Preliminary interpretation of this examination was reported by [facility] at 8:54 p.m. on 12/03/2016. There is concurrence of this report with the preliminary interpretation.
--- NOTE | 2016-12-04 07:59 | RAD ---
HISTORY: code stroke COMPARISON: 11/07/2016 FINDINGS: LUNGS: No active pulmonary disease. PLEURA: No significant pleural effusion identified, no pneumothorax apparent. CARDIOVASCULAR: Normal. OSSEOUS STRUCTURES: No significant abnormalities. VISUALIZED UPPER ABDOMEN: Normal. OTHER FINDINGS: None. IMPRESSION: No active disease.
[2016-12-04] MEDS ORDERED: Non Formulary Medication (Bimatoprost [Lumigan] 1 DROP) OU SCH (10:00)
[2016-12-04] MEDS ORDERED: QUETIAPINE 25 MG PO SCH (10:00)
[2016-12-04] MEDS ORDERED: Non Formulary Medication (Brimonidine 0.2% [Alphagan 0.2% Opht] 1 DROP) OU SCH (10:00)
[2016-12-04] MEDS: Non Formulary Medication (Brimonidine 0.2% [Alphagan 0.2% Opht] 1 DROP) OU SCH ×2 (10:02→17:23)
[2016-12-04] MEDS: Non Formulary Medication (Bimatoprost [Lumigan] 1 DROP) OU SCH (10:02)
--- NOTE | 2016-12-04 11:19 | CARD ---
APPROVED REPORT EKG Measurement Heart [id number] FL [id number] [id number] <Conclusion> Poor data quality, interpretation may be adversely affected Normal sinus rhythm Inferior infarct, age undetermined Abnormal ECG
[2016-12-04] MEDS ORDERED: Bismuth Subsalicylate 262 mg/15 ml Sus (240 ml) PO ONE (15:57)
--- NOTE | 2016-12-04 19:02 | CON ---
DATE: 12/04/2016 HISTORY OF PRESENT ILLNESS: This is a 66-year-old male with past medical history of diabetes, hypert ension, Parkinson disease, dyslipidemia, and came to the hospital with slurred speech and, as patient was acting confused. Denies any fever, chills, vomiting. PAST MEDICAL HISTORY: As above, Parkinson disease, hypertension, diabetes. ALLERGIES: No known drug allergy. HOME MEDICATIONS: Lipitor, Altace, Seroquel, Norvasc, Artane, and metformin. PHYSICAL EXAMINATION: HEENT: Normocephalic, atraumatic. NECK: Supple. NEUROLOGIC: Awake. Oriented to self and place. No aphasia. Cranial nerves II-XII were tested. Pu pils reactive. Spontaneous movement of the extremities noted. RADIOLOGY: CAT scan of the head was done, which was negative for bleed. The tPA was not given. Continue present management. LABORATORY DATA: WBC 7.4, hemoglobin 13.4, hematocrit 38.6, platelet 247. Sodium 139, potassium 4.1 , chloride 98, CO2 31, glucose 148, BUN 16, creatinine 0.8. PLAN: Continue present management. Will follow up. Carlin Jose MD cc: [id number] TT: 12/04/2016 19:01:29 Confirmation # [id number] Dictation # [id number] evangelina
[2016-12-05 06:27] VITALS: TEMP 98.2
[2016-12-05] MEDS: Non Formulary Medication (Bimatoprost [Lumigan] 1 DROP) OU SCH (09:16)
[2016-12-05] MEDS: Non Formulary Medication (Brimonidine 0.2% [Alphagan 0.2% Opht] 1 DROP) OU SCH (09:16)
[2016-12-05 09:17] VITALS: BP 151/73; PULSE 86
[2016-12-05 10:52] VITALS: RESP 18; O2SAT 99
--- NOTE | 2016-12-05 12:09 | DS ---
This is a 66-year-old male who came in to the hospital because of a TIA. He was given aspirin. He h ad improvement of his symptoms. He was seen by Dr. Jose from neurology, and no other intervention was needed. He has no complaints of any headaches or dizziness. No nausea, no vomiting. PHYSICAL EXAMINATION: VITAL SIGNS: Temperature is 98.1. Pulse is 71. Blood pressure is 119/70, respirations 18. GENERAL: The patient is comfortable, in no acute distress. HEENT: Anicteric sclerae. Moist mucosa. NECK: No JVD or adenopathy. CARDIAC: S1/S2. No murmurs. No rubs. Regular. RESPIRATORY: Clear to auscultation bilaterally. No wheezes, rales, or rhonchi. Good air entry. ABDOMEN: Bowel sounds are positive, soft, nontender, and nondistended. EXTREMITIES: No edema. Has 1+ pulses. ASSESSMENT: 1. Transient ischemic attack. 2. Parkinson's. 3. Diabetes type 2. 4. Dyslipidemia. 5. Glaucoma. 6. L4-L5 disk herniation. PLAN: The patient is currently on aspirin for his TIA. He is going to continue with metformin for h is diabetes. He is on Lipitor for his dyslipidemia. He is on Norvasc for his hypertension. His med ications are carbidopa-levodopa and Ultram. CONDITION: Stable. ACTIVITIES: Increase as tolerated. Capo Strauss MD cc: [id number] TT: 12/05/2016 12:08:41 jn
--- NOTE | 2016-12-06 07:36 | HP ---
CHIEF COMPLAINT AND HISTORY OF PRESENT ILLNESS: This is a 66-year-old male who is coming into the [facility] who had slurred speech and confusion. The patient has a history of Parkinson's, diabetes type 2, hypertension, dyslipidemia. He was confused and it was thought that he may be having a stroke. The patient had a CT of the head done that showed streak artifact. There is no evidence of acute int racranial hemorrhage. A code stroke was called. The patient had an NIH stroke scale that was a scor e of 1. He says he is feeling better. He says he does not know what happened. He denies any headac hes or dizziness, nausea, or weakness in the arms or his legs. No shortness of breath. No abdominal pain or back pain. No dysuria or frequency or nocturia. REVIEW OF SYSTEMS: All of the review of systems is within normal limits except as mentioned. ALLERGIES: No known drug allergies. HOME MEDICATIONS: 1. Lipitor. 2. Bimatoprost. 3. Altace. 4. Nexium. 5. Seroquel. 6. Norvasc. 7. Alphagan. 8. Metformin. 9. Carbidopa/levodopa. 10. Tramadol. PAST MEDICAL HISTORY: 1. Dyslipidemia. 2. Glaucoma. 3. Hypertension. 4. Diabetes, type 2. 5. Parkinson's. 6. Femur fracture. 7. L4-L5 disk herniation. SOCIAL HISTORY: He was a former smoker but quit about 6 years ago. He lives with his brother, Reilly guidry. He denies ____. FAMILY HISTORY: Noncontributory. PHYSICAL EXAMINATION: VITAL SIGNS: Temperature is 98.1, pulse 71, blood pressure 119/70, respirations 18. GENERAL: Patient lying in bed, flat, and in no apparent distress. HEAD AND NECK EXAM: Atraumatic, normocephalic. Conjunctivae are pink. Throat clear and mouth with moist mucosa. Oropharynx benign. EYES: Extraocular movements are intact. PERRLA. NECK: Supple. No JVD, thyromegaly, or adenopathy. No bruits. HEART: S1 and S2 regular rate and rhythm. No murmurs, rubs, or gallops. LUNGS: Clear to auscultation bilaterally. No wheezing rales or rhonchi appreciated. No retraction s on exam. ABDOMEN: Soft, nontender, nondistended. Bowel sounds are positive in all quadrants. No rebound. No hepatosplenomegaly. EXTREMITIES: No cyanosis, clubbing, or edema. NEURO: No facial asymmetry, tongue is midline, no uvula deviation. Power is 5/5 in upper extremity and 5/5 in lower extremity. Sensation is normal in upper extremity and lower extremity. PSYCH: Awake, alert, oriented x3. No anxiety or depression symptoms. Good insight. Normal affec t. : No CVA tenderness VASCULAR: 2+ pulses in carotid and pedal pulses. SKIN: No erythema or abnormal nodules noted. SPINE: Normal curvature. LYMPHADENOPATHY: No anterior cervical or posterior cervical adenopathy. No inguinal adenopathy. LABORATORY DATA: Labs have been reviewed. White count of 7.4, hemoglobin A1c is 6.8. LDL is 68. His chest x-ray done shows no active disease. EKG shows sinus rhythm at 63. ____ ST-T wave abnormalities. CT of the head reviewed. No hemorrhages. ASSESSMENT: 1. Transient ischemic attack. 2. Parkinson's. 3. L4-L5 disk herniation. 4. Hypertension. 5. Diabetes, type 2. 6. Dyslipidemia. PLAN: The patient is currently comfortable. He is admitted for evaluation. He was seen by Dr. Villela or from neurology; no intervention is required. The patient is on aspirin; he is going to continue. He is on Lipitor for his dyslipidemia. The patient is currently comfortable. He is on Norvasc for hypertension. The patient is on Seroquel; this will be continued. Capo Strauss MD cc: [id number] TT: 12/05/2016 08:54:40 vt
== END 2016-12-05 11:16 | disposition home or self-care (01) ==
LOC: ED 20:25 → ERH 21:59 → 2RNO 12-04 01:06
PROVIDERS: ADMIT Internal Medicine Nephrology; ATTEND Internal Medicine Nephrology
DX: G45.9 Transient cerebral ischemic attack, unspecified (principal); G20 Parkinson's disease; E11.9 Type 2 diabetes mellitus without complications; E78.5 Hyperlipidemia, unspecified; M51.26 Other intervertebral disc displacement, lumbar region; H40.9 Unspecified glaucoma; I10 Essential (primary) hypertension; R47.81 Slurred speech; Z79.84 Long term (current) use of oral hypoglycemic drugs; Z87.891 Personal history of nicotine dependence
CPT/HCPCS: 70450; 71010; 80053; 80061; 82948; 83036; 84484; 85025; 85610; 85730; 86850; 86900; 93005; 99285; G0378

== ENCOUNTER 2016-12-06 05:51 | Inpatient (IN) | payer MEDICARE ==
--- NOTE | 2016-12-06 06:07 | ED PDOC ---
Arrival/HPI - General Time Seen by Provider: 12/06/16 05:56 Historian: Patient, Family - History of Present Illness Narrative History of Present Illness (Text): 12/06/16 06:05 Raymundo Cochran is a 66 year old male, whose past medical history includes Parkinson's disease, diabetes, dyslipidemia, and hypertension, who presents to the Emergency department brought in by EMS accompanied by relative complaining of altered mental status. Relative states patient has been experiencing intermittent episodes where he becomes increasingly confused, stare off in to space, and does not respond to questioning. Relative states yesterday the episodes were occurring approximately every 15 minutes. Patient was seen for similar complaint on 12/03/2016 and admitted to the hospital for further evaluation. Patient denies any fever, chills, chest pain, shortness of breath, nausea, vomiting, diarrhea, urinary symptoms, back pain, neck pain, headache, dizziness, or any other complaints. PMD: Dr. Karina Strauss Symptom Onset: Gradual Symptom Course: Intermittent Activities at Onset: Rest, Light Context: Home Past Medical History - Provider Review Nursing Documentation Reviewed: Yes - Infectious Disease Hx of Infectious Diseases: None - Tetanus Immunization Tetanus Immunization: Unknown - Cardiac Hx Cardiac Disorders: Yes Hx Hypertension: Yes - Pulmonary Hx Respiratory Disorders: No (SMOKED CIGARETTES PPD QUIT 5 YRS AGO) - Neurological Hx Neurological Disorder: Yes Hx Parkinson's Disease: Yes (hand tremors at times/dx 2 1/2 yrs ago) - HEENT Hx HEENT Disorder: Yes (eyeglasses) Hx Glaucoma: Yes - Renal Hx Renal Disorder: No - Endocrine/Metabolic Hx Diabetes Mellitus Type 2: Yes - Hematological/Oncological Hx Blood Disorders: No - Integumentary Hx Dermatological Disorder: Yes Other/Comment: bruises to knees - Musculoskeletal/Rheumatological Hx Falls: Yes (recent frequent) - Gastrointestinal Hx Gastrointestinal Disorders: No - Genitourinary/Gynecological Hx Genitourinary Disorders: No - Psychiatric Hx Psychophysiologic Disorder: No (SMOKED CIGARETTES PPD QUIT, 5 yrs ago) Hx Depression: No Hx Emotional Abuse: No Hx Physical Abuse: No Hx Substance Use: No - Surgical History Other/Comment: Hernia Repair umbilical, ?stomach sx thicks he had obstruction not sure, - Anesthesia Hx Anesthesia: No Hx Anesthesia Reactions: No Hx Malignant Hyperthermia: No - Suicidal Assessment Feels Threatened In Home Enviroment: No Family/Social History - Physician Review Nursing Documentation Reviewed: Yes Family/Social History: No Known Family HX Smoking Status: Former Smoker Hx Alcohol Use: No Hx Substance Use: No Hx Substance Use Treatment: No Allergies/Home Meds Allergies/Adverse Reactions: Allergies No Known Allergies Allergy (Verified 12/06/16 06:13) Home Medications: Home Meds Medication Instructions Recorded Confirmed Atorvastatin Calcium [Lipitor] 10 mg PO DAILY 04/28/14 12/06/16 Bimatoprost [Lumigan 2.5 ml] 1 drop OU DAILY 04/28/14 12/06/16 Ramipril [Altace] 10 mg PO DAILY 04/28/14 12/06/16 Esomeprazole Magnesium [Nexium] 40 mg PO DAILY 02/04/16 12/06/16 QUEtiapine [SEROquel] 25 mg PO DAILY 02/04/16 12/06/16 amLODIPine [Norvasc] 5 mg PO DAILY 02/04/16 12/06/16 Brimonidine 0.2% [Alphagan 0.2% 1 drop OU BID 03/12/16 12/06/16 Opht] Trihexyphenidyl [Artane] 5 mg PO BID 03/12/16 12/06/16 metFORMIN [glucOPHAGE] 500 mg PO DAILY 03/12/16 12/06/16 Carbidopa/Levodopa 25/100 mg 0.5 tab PO Q12 11/07/16 12/06/16 [Sinemet] Tramadol HCl [Ultram] 50 mg PO BID 11/07/16 12/06/16 Review of Systems - Physician Review All systems were reviewed & negative as marked: Yes - Review of Systems Constitutional: Normal. absent: Fevers Eyes: Normal ENT: Normal Respiratory: Normal. absent: SOB, Cough Cardiovascular: Normal. absent: Chest Pain Gastrointestinal: Normal. absent: Abdominal Pain, Diarrhea, Nausea, Vomiting Genitourinary Male: Normal. absent: Dysuria, Frequency, Hematuria, Urinary Output Changes Musculoskeletal: Normal. absent: Back Pain, Neck Pain Skin: Normal. absent: Rash Neurological: absent: Headache, Dizziness Endocrine: Normal Hemo/Lymphatic: Normal Psychiatric: Normal Physical Exam Vital Signs Reviewed: Yes Vital Signs Temp Pulse Resp BP Pulse Ox 12/06/16 08:08 82 18 136/75 99 12/06/16 06:07 97.9 F 87 18 146/78 99 Temperature: Afebrile Blood Pressure: Normal Pulse: Regular Respiratory Rate: Normal Appearance: Positive for: Well-Appearing, Non-Toxic, Comfortable Pain Distress: None Mental Status: Positive for: Alert and Oriented X 3 - Systems Exam Head: Present: Atraumatic, Normocephalic Pupils: Present: PERRL Extroacular Muscles: Present: EOMI Conjunctiva: Present: Normal Mouth: Present: Moist Mucous Membranes Neck: Present: Normal Range of Motion Respiratory/Chest: Present: Clear to Auscultation, Good Air Exchange. No: Respiratory Distress, Accessory Muscle Use Cardiovascular: Present: Regular Rate and Rhythm, Normal S1, S2. No: Murmurs Abdomen: Present: Normal Bowel Sounds. No: Tenderness, Distention, Peritoneal Signs Back: Present: Normal Inspection Upper Extremity: Present: Normal Inspection. No: Cyanosis, Edema Lower Extremity: Present: Normal Inspection. No: Edema Neurological: Present: GCS=15, CN II-XII Intact, Speech Normal Skin: Present: Warm, Dry, Normal Color. No: Rashes Psychiatric: Present: Alert, Oriented x 3, Normal Insight, Normal Concentration Medical Decision Making ED Course and Treatment: 12/06/16 06:05 Impression: 66 year old male brought in for altered mental status. Plan: -- CT Head w/o contrast -- EKG -- Chest X-ray -- Labs, troponin -- Reassess and disposition Prior Visits: Notes and results from previous visits were reviewed. Progress Notes: 12/06/16 06:14 Case discussed in with Dr. Strauss, who is aware and agrees with plan. Accepts pt in to his service. 12/06/16 06:25 Reviewed EKG, NSR at [address]-segment elevations or depressions, no T-wave inversions, normal intervals. EKG: Ordered, reviewed, and independently interpreted the EKG. Rate : BPM Rhythm : NSR Interpretation : No ST-segment elevations or depressions, no T-wave inversions, normal intervals. Comparison : No previous EKG for comparison. - Lab Interpretations Lab Results: 12/06/16 06:28 12/06/16 06:28 Lab Results 12/06/16 08:21: POC Glucose (mg/dL) 140 H 12/06/16 06:28: Sodium 140, Potassium 4.0, Chloride 102, Carbon Dioxide 25, Anion Gap 17, BUN 30 H, Creatinine 1.0, Est GFR ( Amer) > 60, Est GFR ( Non-Af Amer) > 60, Random Glucose 148 H, Calcium 9.6, Total Bilirubin 1.4 H, AST 19, ALT 19, Alkaline Phosphatase 118, Troponin I < 0.01, Total Protein 8.3, Albumin 4.5, Globulin 3.9, Albumin/Globulin Ratio 1.2 12/06/16 06:28: WBC 9.9 D, RBC 4.65, Hgb 13.8 L, Hct 40.2 L, MCV 86.5, MCH 29.7 , MCHC 34.3, RDW 13.3, Plt Count 248, MPV 10.5, Gran % 73.0 H, Lymph % (Auto) 16.6 L, [place] % (Auto) 8.7 H, Eos % (Auto) 1.3 L, Baso % (Auto) 0.4, Gran # 7.25 H, Lymph # 1.7, [place] # 0.9 H, Eos # 0.1, Baso # 0.04 - RAD Interpretation Radiology Orders: 12/06/16 06:17 HEAD W/O CONTRAST [CT] Stat - EKG Interpretation Interpreted by ED Physician: Yes Type: 12 lead EKG - Medication Orders Current Medication Orders: Acetaminophen (Tylenol 325mg Tab) 650 mg PO Q4H PRN PRN Reason: Fever >100.5 F Amlodipine Besylate (Norvasc) 5 mg PO DAILY [facility] Last Admin: 12/09/16 09:04 Dose: 5 mg Aspirin (Ecotrin) 81 mg PO DAILY [facility] Last Admin: 12/09/16 09:05 Dose: 81 mg Atorvastatin Calcium (Lipitor) 10 mg PO DAILY [facility] Last Admin: 12/09/16 09:07 Dose: 10 mg Carbidopa/Levodopa (Sinemet 10/100) 1 tab PO TID [facility] Last Admin: 12/09/16 13:52 Dose: 1 tab Ergocalciferol (Drisdol 50,000 Intl Units Cap) 1 cap PO Q7D [facility] Last Admin: 12/07/16 00:06 Dose: 1 cap Heparin Sodium (Porcine) (Heparin) 5,000 units SC Q8 [facility] PRN Reason: Protocol Last Admin: 12/09/16 13:52 Dose: 5,000 units Insulin Human Regular (Humulin R Low) 0 units SC ACHS [facility] PRN Reason: Protocol Last Admin: 12/09/16 15:59 Dose: Not Given Non-Admin Reason: Blood Sugar Parameter Latanoprost (Xalatan Opht) 0 ml OU HS [facility] Last Admin: 12/08/16 21:48 Dose: 2.5 ml Metformin HCl (Glucophage) 500 mg PO DAILY [facility] Last Admin: 12/09/16 09:04 Dose: 500 mg Brimonidine 0.2% [ Alphagan 0.2% Opht] Home Med 1 drop OU BID [facility] Last Admin: 12/09/16 09:09 Dose: 1 drop Quetiapine Fumarate (Seroquel) 25 mg PO Q4H PRN PRN Reason: Agitation Last Admin: 12/09/16 05:23 Dose: 25 mg Quetiapine Fumarate (Seroquel) 12.5 mg PO BID [facility] Last Admin: 12/09/16 09:06 Dose: 12.5 mg Re-Assess: Reassess Psych Meds Document 12/09/16 10:06 RV (Rec: 12/09/16 13:54 RV [id number]) Reassess Psych Med Effective Quetiapine Fumarate (Seroquel) 12.5 mg PO HS [facility] Last Admin: 12/08/16 21:48 Dose: 12.5 mg Re-Assess: Reassess Psych Meds Document 12/08/16 22:48 LEVY (Rec: 12/09/16 01:49 LEVY [id number]) Reassess Psych Med Effective Ramipril (Altace) 10 mg PO DAILY [facility] Last Admin: 12/09/16 09:05 Dose: 10 mg Trihexyphenidyl HCl (Artane) 2 mg PO 0800,1600,2200 [facility] Last Admin: 12/09/16 07:52 Dose: 2 mg Discontinued Medications Aspirin (Ecotrin) 81 mg PO DAILY STA Stop: 12/07/16 13:23 Last Admin: 12/07/16 14:18 Dose: 81 mg Benztropine Mesylate (Cogentin) 1 mg IV ONCE ONE Stop: 12/07/16 17:57 Last Admin: 12/07/16 19:04 Dose: 1 mg Carbidopa/Levodopa (Sinemet) 0.5 tab PO Q12 [facility] Last Admin: 12/06/16 12:09 Dose: 0.5 tab Sodium Chloride (Sodium Chloride 0.9%) 1,000 mls @ 80 mls/hr IV .[id number] [facility] Last Admin: 12/06/16 07:03 Dose: 80 mls/hr Sodium Chloride (Sodium Chloride 0.9%) 1,000 mls @ 80 mls/hr IV .[id number] [facility] Last Admin: 12/09/16 01:26 Dose: 80 mls/hr Lorazepam (Ativan) 0.25 mg IVP ONCE STA PRN Reason: Protocol Stop: 12/09/16 01:14 Last Admin: 12/09/16 01:21 Dose: 0.25 mg Potassium Chloride (Potassium Chloride Oral Soln) 20 meq PO STAT STA Stop: 12/07/16 11:38 Last Admin: 12/07/16 19:10 Dose: Not Given Non-Admin Reason: NPO Quetiapine Fumarate (Seroquel) 50 mg PO HS [facility] Last Admin: 12/07/16 03:35 Dose: Not Given Non-Admin Reason: Patient Refused Quetiapine Fumarate (Seroquel) 50 mg PO BID [facility] Last Admin: 12/07/16 09:09 Dose: 50 mg Re-Assess: Reassess Psych Meds Document 12/07/16 10:09 [id number] (Rec: 12/07/16 17:35 [id number]) Reassess Psych Med Effective Trihexyphenidyl HCl (Artane) 5 mg PO BID [facility] Last Admin: 12/06/16 17:08 Dose: Not Given Non-Admin Reason: Patient Refused Trihexyphenidyl HCl (Artane) 2 mg PO BID [facility] Last Admin: 12/07/16 15:12 Dose: Ziprasidone (Geodon Inj) 20 mg IM ONCE ONE Stop: 12/06/16 19:00 Last Admin: 12/07/16 00:06 Dose: 20 mg NIHSS Scale ([place]) Time Performed: 06:05 - How Severe is the Stoke Baseline Level of Consciousness: 0=Alert LOC to Questions: 0=Both comments correct LOC to commands: 0=Obeys both correctly Best Gaze: 0=Normal Visual: 0=No visual loss Facial: 0=Normal Motor Arm - Left: 0=No drift Motor Arm - Right: 0=No drift Motor Leg - Left: 0=No drift Motor Leg - Right: 0=No drift Limb Ataxia: 0=Absent Sensory: 0=Normal Best Language: 0=No aphasia Dysarthia: 0=Normal articulation Extinction & Inattention (Neglect): 0=Normal, no object Score: 0 Risk Level: No Stroke Risk rTPA Inclusion/Exclusion - Refusal of Treatment Patient Refused Treatment: No - Inclusion Criteria for Altepase Patient is 18 years or Older: Yes The Clinical Diagnosis of Ischemic Stroke That is Causing a Potentially Disabling Neurological Deficit: No Time of Onset is Well Established to be Less Than 270 Minute Before Treatment Would Begin: Yes Risk/Benefit Discussed With Patient/Family Member Present: Yes - Exclusion Criteria for Altepase Uncontrolled Hypertension at Time of Treatment (Systolic BP above 185 or Diastolic BP above 110 mmHg): No Known Bleeding Diathesis Including but Not Limited to: Platelets Below 100,000/ mm,PTT Above 40 sec After Heparin Use, Current Use of Oral Anitcoagulant With INR Greater Than 1.7 or PT Greater Than 15 secs: No Evidence of an Intracranial Hemorrhage: No Evidence of Major Acute Infarct With Signs Greater Than 1/3 MCA Territory: No Suspicion of Subarachnoid Hemorrhage on Pretreatment Evaluation Even if CT Head Negative For Hemorrhage: No - Warning to TPA With Conditions Following Conditions Weighed Against Anticipated Benefit: Yes Condition: Stroke Serevity Too Mild, Rapid Improvement - Scribe Statement The provider has reviewed the documentation as recorded by the Scribyajaira Rice All medical record entries made by the Rodriguezibyajaira were at my direction and personally dictated by me. I have reviewed the chart and agree that the record accurately reflects my personal performance of the history, physical exam, medical decision making, and the department course for this patient. I have also personally directed, reviewed, and agree with the discharge instructions and disposition. Disposition/Present on Arrival - Present on Arrival Any Indicators Present on Arrival: No History of DVT/PE: No History of Uncontrolled Diabetes: No Urinary Catheter: No History Surgical Site Infection Following: None - Disposition Have Diagnosis and Disposition been Completed?: Yes Diagnosis: TIA (transient ischemic attack) Disposition: HOSPITALIZED Disposition Time: 06:15 Patient Problems: Current Active Problems Problem Status Onset TIA (transient ischemic attack) Acute Condition: GOOD
[2016-12-06 06:09] VITALS: BMI 26.6
[2016-12-06 06:34] LABS: ADD MANUAL DIFF? NO
[2016-12-06 06:45] LABS: BASO # 0.04 K/mm3 (0.0-2.0); BASO % 0.4 % (0.0-3.0); EOS # 0.1 (0.0-0.7); EOS % 1.3 % (1.5-5.0); GRAN # 7.25 (1.4-6.5); HEMATOCRIT 40.2 % (42.0-52.0); LYMPH # 1.7 (1.2-3.4); LYMPH % 16.6 % (22.0-35.0); MEAN CELL VOLUME 86.5 fL (80.0-105.0); MEAN CORPUSCULAR HEMOGLOBIN 29.7 pg (25.0-35.0); MEAN CORPUSCULAR HGB CONC 34.3 g/dl (31.0-37.0); MEAN PLATELET VOLUME 10.5 fl (7.0-11.0); MONO # 0.9 (0.1-0.6); MONO % 8.7 % (1.0-6.0); PLATELET COUNT 248 10^3/uL (120.0-450.0); RED CELL DISTRIBUTION WIDTH 13.3 % (11.5-14.5); WHITE BLOOD COUNT 9.9 10^3/ul (4.5-11.0)
[2016-12-06 06:47] LABS: ALB/GLOB RATIO 1.2 (1.1-1.8); ALKALINE PHOSPHATASE 118 U/L (38-133); ALT/SGPT 19 U/L (7-56); AST/SGOT 19 U/L (15-59); BILIRUBIN,TOTAL 1.4 mg/dL (0.2-1.3); BLOOD UREA NITROGEN 30 mg/dL (7-21); CALCIUM 9.6 mg/dL (8.4-10.5); CARBON DIOXIDE 25 mmol/L (21-33); CHLORIDE 102 mmol/L (98-107); GFR AFRICAN-AMERICAN > 60; GLUCOSE,RANDOM 148 mg/dL (70-110); SODIUM 140 mmol/L (132-148); TOTAL PROTEIN 8.3 g/dL (5.8-8.3)
[2016-12-06 07:00] LABS: TROPONIN I < 0.01 ng/mL
[2016-12-06] MEDS ORDERED: Sodium Chloride 0.9% 1,000 ML IV SCH (07:00)
--- NOTE | 2016-12-06 08:05 | CT ---
PROCEDURE: CT HEAD WITHOUT CONTRAST. HISTORY: ams COMPARISON: 12/03/2016 TECHNIQUE: Axial computed tomography images were obtained through the head/brain without intravenous contrast. Radiation dose: Total exam DLP = 790 mGy-cm. This CT exam was performed using one or more of the following dose reduction techniques: Automated exposure control, adjustment of the mA and/or kV according to patient size, and/or use of iterative reconstruction technique. FINDINGS: HEMORRHAGE: No intracranial hemorrhage. BRAIN: No mass effect or edema. There is severe atrophy especially in the right parietal region. Chronic microvascular changes are seen. There are no acute findings VENTRICLES: Unremarkable. No hydrocephalus. CALVARIUM: Unremarkable. PARANASAL SINUSES: Unremarkable as visualized. No significant inflammatory changes. MASTOID AIR CELLS: Unremarkable as visualized. No inflammatory changes. OTHER FINDINGS: The report concurs with the preliminary [facility] report IMPRESSION: Severe atrophy. Chronic microvascular changes. No acute findings
[2016-12-06] MEDS: Insulin Reg-LOW-Coverage SC SCH ×4 (08:25→22:00)
--- NOTE | 2016-12-06 10:16 | CARD ---
APPROVED REPORT EKG Measurement Heart [id number] <Conclusion> Normal sinus rhythm Normal ECG
[2016-12-06] MEDS: BRIMONIDINE 0.2% OU SCH ×2 (12:18→17:08)
--- NOTE | 2016-12-06 18:46 | HP ---
CHIEF COMPLAINT AND HISTORY OF PRESENT ILLNESS: This is a 66-year-old male who is coming into the [facility] with a history of Parkinson's, diabetes, dyslipidemia and hypertension. The patient was broug ht in by his brother, who states that the patient was having spells of staring into space. He said t hat he was becoming increasingly confused. He was not responding to his questions. He was discharge d 1 day ago. He said that this was occurring every 15 minutes. He was concerned and so he was broug ht in for further evaluation. The patient is confused. He denies any chest pain or shortness of dipak ath, no headaches, no dizziness, no nausea, no weakness in the arms or the legs but . ALLERGIES: No known drug allergies. HOME MEDICATIONS: Lipitor, Lumigan, Altace, Nexium, Seroquel, Norvasc, Alphagan, Artane, Glucophage, carbidopa/levodopa, Ultram. PAST MEDICAL HISTORY: 1. Hypertension. 2. Dyslipidemia. 3. Diabetes type 2. 4. Glaucoma. 5. Parkinson's. 6. Femur fracture. 7. L4-L5 disk herniation. 8. schizophrenia. SOCIAL HISTORY: He is a former smoker but quit about 6 years ago. He lives with his brother. FAMILY HISTORY: Noncontributory. PHYSICAL EXAMINATION: VITAL SIGNS: Temperature is 97.9, pulse of 82, blood pressure 136/75, respirations 18, height is 5 f eet 7 inches, weight is 170 pounds, BMI is 26.6. GENERAL: Patient lying in bed, flat, and in no apparent distress. HEAD AND NECK EXAM: Atraumatic, normocephalic. Conjunctivae are pink. Throat clear and mouth with moist mucosa. Oropharynx benign. EYES: Extraocular movements are intact. PERRLA. NECK: Supple. No JVD, thyromegaly, or adenopathy. No bruits. HEART: S1 and S2 regular rate and rhythm. No murmurs, rubs, or gallops. LUNGS: Clear to auscultation bilaterally. No wheezing rales or rhonchi appreciated. No retraction s on exam. ABDOMEN: Soft, nontender, nondistended. Bowel sounds are positive in all quadrants. No rebound. No hepatosplenomegaly. EXTREMITIES: No cyanosis, clubbing, or edema. NEURO: No facial asymmetry, tongue is midline, no uvula deviation. Power is 5/5 in upper extremity and 5/5 in lower extremity. Sensation is normal in upper extremity and lower extremity. PSYCH: He is alert, awake, oriented x 1. It is a limited exam. Denied any hallucinations, auditory or visual. : No CVA tenderness VASCULAR: 2+ pulses in carotid and pedal pulses. SKIN: No erythema or abnormal nodules noted. SPINE: Normal curvature. LYMPHADENOPATHY: No anterior cervical or posterior cervical adenopathy. No inguinal adenopathy. LABORATORY DATA: White count of , hemoglobin 13.8. Sodium 140, potassium is 4.0, creatinine is 1.0. EKG shows sinus rhythm. CT of the head shows severe atrophy and chronic microvascular changes. ASSESSMENT: 1. Confusion. 2. Parkinson's disease. 3. Schizophrenia. 4. Diabetes type 2. 5. Dyslipidemia. 6. Glaucoma. 7. L4-L5 disk herniation. PLAN: The patient is going to be admitted to the hospital. He is on Altace. He is going to be on m etformin for his diabetes. He is on Lipitor for dyslipidemia. He is on IV fluids. The patient is on Tylenol. This will be continued. I spoke to the patient's brother to give him an update on the patie nt's diagnosis . Capo Strauss MD cc: [id number] TT: 12/06/2016 18:45:32 ln
--- NOTE | 2016-12-06 19:21 | CON ---
DATE: 12/06/2016 HISTORY OF PRESENT ILLNESS: This is a 66-year-old male with past medical history of Parkinson diseas e, diabetes, hypertension, came to the Emergency Room with altered mental status and stroke and patie nt has been increasingly confused. The patient was discharged and came back to the hospital. PAST MEDICAL HISTORY: Hypertension, Parkinson disease. ALLERGIES: No known drug allergies. HOME MEDICATIONS: Ramipril, Nexium, Seroquel, Norvasc, Artane, Glucophage, Sinemet. PHYSICAL EXAMINATION: HEENT: Normocephalic, atraumatic. NECK: Supple. NEUROLOGIC: Awake, oriented to self. No aphasia. Cranial nerves II through XII were tested. Pupil s reactive. EOMs intact. Spontaneous movement of the extremities noted. Deep tendon reflexes 1+. Both plantars are downgoing. Sensory appears intact. Cerebellar and gait deferred. IMPRESSION: Encephalopathy superimposed on toxic metabolic, and also history of Parkinson disease. CAT scan of the head was negative, atrophied. Workup is in progress. PLAN: Continue present management. We will follow up. Carlin Jose MD cc: [id number] TT: 12/06/2016 19:20:41 Confirmation # [id number] Dictation # [id number]
[2016-12-06] MEDS ORDERED: Ergocalciferol 50,000 Intl Units Cap PO SCH (19:45)
--- NOTE | 2016-12-06 20:27 | CON ---
DATE: 12/06/2016 HISTORY OF PRESENT ILLNESS: The patient is a 66-year-old male. I reviewed the chart, disc ussed the case with the neurologist. The patient has been brought to the Emergency Room several time s over the past month. Most recently, he came to the Emergency Room early today, brought by his brot her. The brother was complaining of confusion. He has been having in recent days intermittent episo hua where he becomes confused, noncommunicative, cannot carry on a rational conversation, other times where he gets very restless and agitated. PAST MEDICAL HISTORY: Long history of chronic paranoid schizophrenia. I have known this patient for at least 20 years or more. I made a home visit in the past 2 months. The patient has had declining health. He has had difficulty walking. He has been diagnosed as having Parkinson's disease, althou gh except for a slight tremor, he has not elicited any major symptoms of Parkinson's disease recently . The patient has a history of hypertension, glaucoma and diabetes mellitus. He also has a gait dys function now. His appetite has been fluctuating. The patient also has a history of L4-L5 disk hernia tion. He also has possible developmental disorder. CURRENT LABORATORY DATA: He has had a recent MRI of the brain, which has shown moderate chronic whit e matter and basal nuclear ischemic changes with parietal and posterior frontal areas also. He has co rtical atrophic changes. The patient, on this admission, had a CAT scan today, which showed severe a trophy, especially in the right parietal region. He has chronic microvascular changes and ventricula r dilatation. The patient had an electrocardiogram today, which revealed normal sinus rhythm with a QTC interval of 432, which is normal. The patient's current CBC reveals a white count of 9900, hemog lobin of 13.8, and a platelet count of . His metabolic profile is normal except for BUN of 30, creatinine 1.0. He has a random glucose of 140, total bilirubin of 1.4. Rest of his parameters are normal; however, the patient recently, on 11/09, had a vitamin D level of 19.1. He had a TSH of 0.28, a free T4 1.22. CURRENT MEDICATIONS: Include Lipitor, Norvasc, Seroquel 25 mg at bedtime, Xalatan ophthalmic solutio n, Artane 5 mg t.i.d., Sinemet 0.5 mg tablet q. 12 hours p.r.n. PERSONAL HISTORY: He is unmarried, lives with a brother in a family home. He has been on Social Sec urity disability for many years. No alcohol abuse. No substance abuse. REVIEW OF SYSTEMS: He complains of slight back pain. Otherwise, 10 point review noncontributory. VITAL SIGNS: Blood pressure is 129/73, pulse 70, respirations 18 per minute, afebrile. PSYCHIATRIC MENTAL STATUS: He is awake. He recognizes me. He has thought blocking and poverty of t hought. He has some catatonic features. His judgment and insight are all poor. Recognizes his brot her, recognizes me, but does not carry on any kind of rational conversation. IMPRESSION: He has chronic schizophrenia with acute exacerbation. He has diabetes mellitus. He has possible Parkinson's disease, mild. He has a gait dysfunction. He has hyperlipidemia, hypertension . PLAN: We will order Geodon 20 mg IM, Seroquel 50 b.i.d. and 50 at bedtime and Geodon 10 mg q. 4 hour s p.r.n. for psychotic symptomatology. We will monitor mental status and reevaluate tomorrow. Graham Keith MD cc: [id number] TT: 12/06/2016 20:26:48 Confirmation # [id number] Dictation # [id number]
[2016-12-07] MEDS: Latanoprost 2.5 ml Opht Soln OU SCH ×2 (00:06→22:41)
--- NOTE | 2016-12-07 07:52 | PN ---
DATE: 12/07/2016 SUBJECTIVE: The patient has no complaints of any chest pain, no shortness of breath, no headaches, n o dizziness. PHYSICAL EXAMINATION: VITAL SIGNS: Temperature is 98.4, pulse of 93, blood pressure is 147/82, respirations 20. GENERAL: The patient comfortable, in no acute distress. HEENT: Anicteric sclerae. Moist mucosa. NECK: No JVD or adenopathy. CARDIAC: S1/S2. No murmurs. No rubs. Regular. RESPIRATORY: Clear to auscultation bilaterally. No wheezes, rales, or rhonchi. Good air entry. ABDOMEN: Bowel sounds are positive, soft, nontender, and nondistended. EXTREMITIES: No edema. Has 1+ pulses. ASSESSMENT: 1. Delirium. 2. Parkinson's. 3. Schizophrenia. 4. Diabetes type 2. 5. Dyslipidemia. 6. Glaucoma. 7. L4-L5 disk herniation. PLAN: The patient is currently comfortable. He is on Altace. He is going to continue with his salima min D. The patient is on metformin for his diabetes. He is on Lipitor for dyslipidemia. He is moriah g to be on Seroquel. He is on IV fluids. I appreciate the input from Dr. Keith. I will get physic al therapy to evaluate the patient. We will await further input from the consultants. Capo Strauss MD cc: [id number] TT: 12/07/2016 07:51:41 Confirmation # [id number] Dictation # [id number] en
[2016-12-07] MEDS: Insulin Reg-LOW-Coverage SC SCH ×4 (09:00→22:17)
[2016-12-07 10:31] LABS: ARTERIAL BLOOD GAS HCO3 23.5 mmol/L (21-28); ARTERIAL BLOOD GAS PH 7.46 (7.35-7.45)
[2016-12-07 10:34] LABS: HEMATOCRIT 39.8 % (42.0-52.0); MEAN CELL VOLUME 84.7 fL (80.0-105.0); MEAN CORPUSCULAR HEMOGLOBIN 30.2 pg (25.0-35.0); MEAN CORPUSCULAR HGB CONC 35.7 g/dl (31.0-37.0); MEAN PLATELET VOLUME 10.2 fl (7.0-11.0)
--- NOTE | 2016-12-07 10:44 | CP.PCM.PN ---
<Rosalva Rajan - Last Filed: 12/07/16 11:24> Subjective - Date & Time of Evaluation Date of Evaluation: 12/07/16 Time of Evaluation: 10:42 - Subjective Subjective: Rapid Response Note Physical therapist found patient as very lethargic and responding only occasionally. Rapid response was called on patient at this point. Per nurse, patient was given seroquel 50 mg at 9 am. Patient was arousable after strong sternal rub but lapsing back into drowsy state Admitted with diagnosis of TIA. Past medical history of hypertension, dyslipidemia, DM type 2, glaucoma, Parkinson's, femur fracture, L4-L5 disk herniation, schizophrenia patient's vitals were 122/68, 86, 117, 99% RA, resp of 12 and shallow. At this point, CCU consult was requested. Objective - Vital Signs/Intake and Output Vital Signs (last 24 hours): Temp Pulse Resp BP Pulse Ox 98.9 F 100 H 20 131/78 99 12/07/16 06:00 12/07/16 09:09 12/07/16 06:00 12/07/16 09:09 12/06/16 08:08 - Medications Medications: Current Medications Acetaminophen (Tylenol 325mg Tab) 650 mg PO Q4H PRN PRN Reason: Fever >100.5 F Amlodipine Besylate (Norvasc) 5 mg PO DAILY [facility] Last Admin: 12/07/16 09:09 Dose: 5 mg Atorvastatin Calcium (Lipitor) 10 mg PO DAILY [facility] Last Admin: 12/07/16 09:12 Dose: 10 mg Ergocalciferol (Drisdol 50,000 Intl Units Cap) 1 cap PO Q7D [facility] Last Admin: 12/07/16 00:06 Dose: 1 cap Insulin Human Regular (Humulin R Low) 0 units SC ACHS [facility] PRN Reason: Protocol Last Admin: 12/07/16 09:00 Dose: 1 units Latanoprost (Xalatan Opht) 0 ml OU HS [facility] Last Admin: 12/07/16 00:06 Dose: 2.5 ml Metformin HCl (Glucophage) 500 mg PO DAILY [facility] Last Admin: 12/07/16 09:10 Dose: 500 mg Brimonidine 0.2% [ Alphagan 0.2% Opht] Home Med 1 drop OU BID [facility] Last Admin: 12/06/16 17:08 Dose: Not Given Quetiapine Fumarate (Seroquel) 50 mg PO HS [facility] Last Admin: 12/07/16 03:35 Dose: Not Given Quetiapine Fumarate (Seroquel) 50 mg PO BID [facility] Last Admin: 12/07/16 09:09 Dose: 50 mg Ramipril (Altace) 10 mg PO DAILY [facility] Last Admin: 12/07/16 09:09 Dose: 10 mg Trihexyphenidyl HCl (Artane) 2 mg PO BID [facility] Ziprasidone (Geodon Inj) 10 mg IM Q4H PRN PRN Reason: Psychosis - Labs Labs: 12/07/16 10:20 12/06/16 06:28 - Eye Exam Pupil Exam: absent: PERRL Additional comments: pin point pupils - ENT Exam ENT Exam: Mucous Membranes Moist - Respiratory Exam Respiratory Exam: Decreased Breath Sounds, Clear to Ausculation Bilateral. absent: Rales, Rhonchi, Wheezes - Cardiovascular Exam Cardiovascular Exam: Tachycardia, REGULAR RHYTHM, +S1, +S2. absent: Gallop, Rubs, Murmur - GI/Abdominal Exam GI & Abdominal Exam: Soft, Normal Bowel Sounds. absent: Distended, Firm, Guarding, Rigid, Tenderness - Neurological Exam Neurological Exam: Altered. absent: Oriented x3 Additional comments: moves all 4 extremities when stimulated - Skin Skin Exam: Dry, Normal Color, Warm Assessment and Plan - Assessment and Plan (Free Text) Assessment: Assessment: 2. Altered Mental Status likely secondary to polypharmacy 1. Respiratory depression probably secondary to Seroquel Plan: Plan: ABG shock panel, CBC, CMP, Trops, CXR, Mg, Phos, UA, urine cx, CXR, blood cx were ordered. ABG showed pH of 7.46, CO2 of 33, O2 of 173 at [address] Consult obtained with Dr[address] Mckinney. He accepted patient to CCU. CCU transfer <Marilee Mackey - Last Filed: 12/07/16 11:57> Objective - Vital Signs/Intake and Output Vital Signs (last 24 hours): Temp Pulse Resp BP Pulse Ox 98.9 F 100 H 20 131/78 99 12/07/16 06:00 12/07/16 09:09 12/07/16 06:00 12/07/16 09:09 12/06/16 08:08 - Medications Medications: Current Medications Acetaminophen (Tylenol 325mg Tab) 650 mg PO Q4H PRN PRN Reason: Fever >100.5 F Amlodipine Besylate (Norvasc) 5 mg PO DAILY [facility] Last Admin: 12/07/16 09:09 Dose: 5 mg Atorvastatin Calcium (Lipitor) 10 mg PO DAILY [facility] Last Admin: 12/07/16 09:12 Dose: 10 mg Ergocalciferol (Drisdol 50,000 Intl Units Cap) 1 cap PO Q7D [facility] Last Admin: 12/07/16 00:06 Dose: 1 cap Sodium Chloride (Sodium Chloride 0.9%) 1,000 mls @ 80 mls/hr IV .[id number] [facility] Insulin Human Regular (Humulin R Low) 0 units SC ACHS [facility] PRN Reason: Protocol Last Admin: 12/07/16 09:00 Dose: 1 units Latanoprost (Xalatan Opht) 0 ml OU HS [facility] Last Admin: 12/07/16 00:06 Dose: 2.5 ml Metformin HCl (Glucophage) 500 mg PO DAILY [facility] Last Admin: 12/07/16 09:10 Dose: 500 mg Brimonidine 0.2% [ Alphagan 0.2% Opht] Home Med 1 drop OU BID [facility] Last Admin: 12/06/16 17:08 Dose: Not Given Quetiapine Fumarate (Seroquel) 50 mg PO HS [facility] Last Admin: 12/07/16 03:35 Dose: Not Given Quetiapine Fumarate (Seroquel) 50 mg PO BID [facility] Last Admin: 12/07/16 09:09 Dose: 50 mg Ramipril (Altace) 10 mg PO DAILY [facility] Last Admin: 12/07/16 09:09 Dose: 10 mg Trihexyphenidyl HCl (Artane) 2 mg PO BID [facility] Ziprasidone (Geodon Inj) 10 mg IM Q4H PRN PRN Reason: Psychosis - Labs Labs: 12/07/16 10:20 12/07/16 10:20 Attending/Attestation - Attestation I have personally seen and examined this patient.: Yes I have fully participated in the care of the patient.: Yes I have reviewed all pertinent clinical information, including history, physical exam and plan: Yes Notes (Text): 12/07/16 11:48 Pt was evaluated at 10:03 when [employer] was called. Accucheck was 159 End tidal co2 dipped to 19 ,pt had short apneic periods when consult was requested with Dr Mckinney. Total Critical care time spent with patient was 57 mins.
[2016-12-07 10:46] LABS: ALB/GLOB RATIO 1.2 (1.1-1.8); ALKALINE PHOSPHATASE 115 U/L (38-133); ALT/SGPT 27 U/L (7-56); AST/SGOT 22 U/L (15-59); BILIRUBIN,TOTAL 1.3 mg/dL (0.2-1.3); BLOOD UREA NITROGEN 17 mg/dL (7-21); CALCIUM 9.3 mg/dL (8.4-10.5); CARBON DIOXIDE 26 mmol/L (21-33); CHLORIDE 101 mmol/L (98-107); GFR AFRICAN-AMERICAN > 60; GLUCOSE,RANDOM 143 mg/dL (70-110); POTASSIUM 3.5 mmol/L (3.6-5.0); SODIUM 139 mmol/L (132-148); TOTAL PROTEIN 7.8 g/dL (5.8-8.3)
[2016-12-07 10:57] LABS: TROPONIN I 0.03 ng/mL
--- NOTE | 2016-12-07 11:12 | CARD ---
APPROVED REPORT EKG Measurement Heart [id number] <Conclusion> Sinus tachycardia Nonspecific ST abnormality
[2016-12-07] MEDS ORDERED: Potassium Chloride 20 mEq/15 ml LIQ UD PO STA (11:37)
--- NOTE | 2016-12-07 11:46 | CP.PCM.CON ---
<FabienneAna - Last Filed: 12/07/16 14:54> History of Present Illness - History of Present Illness History of Present Illness: PGY-[address] Mckinney ICU consult: non-responsiveness with machelle turcios 66 year old male, with PMH Parkinson's disease on Astane and seroquel, Non-IDDM , HLD, and HTN, was brought by EMS accompanying relatives for AMS on , . Relative states patient has been experiencing intermittent episodes where he becomes increasingly confused, stare off in to space, and does not respond to questioning. Relative states yesterday the episodes were occurring approximately every 15 minutes. Patient was seen for similar complaint on 2016 and admitted to the hospital for further evaluation. Overnight, RN reported pt was agitated all night long, did not sleep. requiring geodon 20 IM x 1 at midnight. Today (12/07), Physical therapist found patient as very lethargic and responding only occasionally. Rapid response was called. Per nurse, patient was given seroquel 50 mg at 9 am. Pt did not receive. Patient was arousable after strong sternal rub but lapsing back into drowsy state. Pt vitals were 122/68, 86, 117, 99% RA, resp of 12 and shallow breath. End tidal CO2 showed 19- low 20s EKG showed Sinus tachycardia @ 101. Non specific ST changes. QTc 461. ROS - On ED: Patient denies any fever, chills, chest pain, shortness of breath, nausea, vomiting, diarrhea, urinary symptoms, back pain, neck pain, headache, dizziness, or any other complaints. PMH TIA on aspirin Paranoid Schizophrenia, chronic x 20 years Parkinson's disease on Astane and seroquel Non-IDDM -2 HLD HTN Glaucoma L femur fracture L4-5 disk herniation [facility] 12/04/16 - c/o Slurred speech and confusion. Dx TIA. SH Former smoker, quit 6 years ago Live with brother, Chinmay Denies smoking / drug/ etoh currently Difficulty walking All NKA Med ASA - on tylenol PRN Amlodipine 5, Ramipril 10 daily Lipitor 10 Drisdol 50,ooo Q7D ISSS Metformin Brimonidine BID Seroquel 50 TID (BID + HS) Carbidopa/Levodopa 0.5 mg q12 Trihexyphenidyl (Artane) 2 BID Geodon PRN Home Med Tramadol 50 PO BID for pain PMD Dr. Strauss Psych Dr. Keith Neurol Dr. Jose Past Patient History - Infectious Disease Hx of Infectious Diseases: None - Tetanus Immunizations Tetanus Immunization: Unknown - Past Social History Smoking Status: Never Smoked - CARDIAC Hx Cardiac Disorders: Yes Hx Hypercholesterolemia: Yes Hx Hypertension: Yes - PULMONARY Hx Respiratory Disorders: No (SMOKED CIGARETTES PPD QUIT 5 YRS AGO) - NEUROLOGICAL Hx Neurological Disorder: Yes Hx Parkinson's Disease: Yes (hand tremors at times/dx 2 1/2 yrs ago) Hx Transient Ischemic Attacks (TIA): Yes - HEENT Hx HEENT Problems: Yes (eyeglasses) Hx Glaucoma: Yes - RENAL Hx Chronic Kidney Disease: No - ENDOCRINE/METABOLIC Hx Diabetes Mellitus Type 2: Yes - HEMATOLOGICAL/ONCOLOGICAL Hx Blood Disorders: No - INTEGUMENTARY Hx Dermatological Problems: Yes Other/Comment: multiple old scars to both knees from pastt falls as per brother , fading bruises and healing scrapes both knees - MUSCULOSKELETAL/RHEUMATOLOGICAL Hx Falls: Yes (recent frequent) - GASTROINTESTINAL Hx Gastrointestinal Disorders: No - GENITOURINARY/GYNECOLOGICAL Hx Genitourinary Disorders: No - PSYCHIATRIC Hx Substance Use: No - SURGICAL HISTORY Other/Comment: Hernia Repair umbilical, ?stomach sx thicks he had obstruction not sure, - ANESTHESIA Hx Anesthesia: No Hx Anesthesia Reactions: No Hx Malignant Hyperthermia: No Meds Allergies/Adverse Reactions: Allergies Allergy/AdvReac Type Severity Reaction Status Date / Time No Known Allergies Allergy Verified 12/06/16 06:13 - Medications Medications: Current Medications Acetaminophen (Tylenol 325mg Tab) 650 mg PO Q4H PRN PRN Reason: Fever >100.5 F Amlodipine Besylate (Norvasc) [address] [facility] Last Admin: 12/07/16 09:09 Dose: 5 mg Atorvastatin Calcium (Lipitor) [address] [facility] Last Admin: 12/07/16 09:12 Dose: 10 mg Ergocalciferol (Drisdol 50,000 Intl Units Cap) [address] [facility] Last Admin: 12/07/16 00:06 Dose: 1 cap Sodium Chloride (Sodium Chloride 0.9%) 1,000 mls @ 80 mls/hr IV .[id number] [facility] Insulin Human Regular (Humulin R Low) [address] [facility] PRN Reason: Protocol Last Admin: 12/07/16 09:00 Dose: 1 units Latanoprost (Xalatan Opht) [address] [facility] Last Admin: 12/07/16 00:06 Dose: 2.5 ml Metformin HCl (Glucophage) [address] [facility] Last Admin: 12/07/16 09:10 Dose: 500 mg Brimonidine 0.2% [ Alphagan 0.2% Opht] Home Med [address] [facility] Last Admin: 12/06/16 17:08 Dose: Not Given Quetiapine Fumarate (Seroquel) [address] [facility] Last Admin: 12/07/16 03:35 Dose: Not Given Quetiapine Fumarate (Seroquel) [address] [facility] Last Admin: 12/07/16 09:09 Dose: 50 mg Ramipril (Altace) [address] [facility] Last Admin: 12/07/16 09:09 Dose: 10 mg Trihexyphenidyl HCl (Artane) [address] [facility] Ziprasidone (Geodon Inj) 10 mg IM Q4H PRN PRN Reason: Psychosis Physical Exam - Constitutional Appears: Cachectic - Head Exam Head Exam: ATRAUMATIC, NORMOCEPHALIC - Eye Exam Eye Exam: EOMI, Normal appearance - ENT Exam ENT Exam: Mucous Membranes Moist - Respiratory Exam Respiratory Exam: Decreased Breath Sounds, Clear to Auscultation Bilateral. absent: Accessory Muscle Use, NORMAL BREATHING PATTERN (shallow, RR 12) - Cardiovascular Exam Cardiovascular Exam: Tachycardia, +S1, +S2, Systolic Murmur (grade 2) - GI/Abdominal Exam GI & Abdominal Exam: Normal Bowel Sounds, Soft. absent: Distended - Back Exam Back exam: absent: CVA tenderness (L), CVA tenderness (R), paraspinal tenderness - Neurological Exam Neurological exam: Alert - Psychiatric Exam Psychiatric exam: Flat Affect Additional comments: Slow in reaction and answering questions. follow commands - Skin Skin Exam: Dry, Warm Results - Vital Signs Recent Vital Signs: Last Vital Signs Temp 98.9 F 12/07/16 06:00 Pulse 100 H 12/07/16 09:09 Resp 20 12/07/16 06:00 BP 131/78 12/07/16 09:09 Pulse Ox 99 12/06/16 08:08 - Labs Result Diagrams: 12/07/16 10:20 12/07/16 10:20 Labs: Laboratory Results - last 24 hr 12/07/16 12/07/16 12/07/16 10:20 10:20 10:20 WBC 7.0 D RBC 4.70 Hgb 14.2 Hct 39.8 L MCV 84.7 MCH 30.2 MCHC 35.7 RDW 13.0 Plt Count 225 MPV 10.2 pCO2 pO2 HCO3 ABG pH ABG Total CO2 ABG O2 Saturation ABG Base Excess ABG Potassium Glucose Lactate FiO2 Sodium 139 Potassium 3.5 L Chloride 101 Carbon Dioxide 26 Anion Gap 16 BUN 17 Creatinine 0.6 Est GFR ( Amer) > 60 Est GFR (Non-Af Amer) > 60 Random Glucose 143 H Calcium 9.3 Phosphorus 4.0 Magnesium 2.0 Total Bilirubin 1.3 AST 22 ALT 27 Alkaline Phosphatase 115 Troponin I 0.03 D Total Protein 7.8 Albumin 4.2 Globulin 3.6 Albumin/Globulin Ratio 1.2 TSH 3rd Generation 0.61 Arterial Blood Potassium 12/07/16 10:28 WBC RBC Hgb Hct MCV MCH MCHC RDW Plt Count MPV pCO2 33 L pO2 173.0 H HCO3 23.5 ABG pH 7.46 H ABG Total CO2 24.5 ABG O2 Saturation 99.7 H ABG Base Excess 0.3 ABG Potassium 3.2 L Glucose 142 H Lactate 1.0 FiO2 32.0 Sodium 140.0 Potassium Chloride 111.0 H Carbon Dioxide Anion Gap BUN Creatinine Est GFR ( Amer) Est GFR (Non-Af Amer) Random Glucose Calcium Phosphorus Magnesium Total Bilirubin AST ALT Alkaline Phosphatase Troponin I Total Protein Albumin Globulin Albumin/Globulin Ratio TSH 3rd Generation Arterial Blood Potassium 3.2 L Assessment & Plan - Assessment and Plan (Free Text) Plan: 66 M, with recent Hx TIA on aspirin, Paranoid Schizophrenia x 20 years, Parkinson's disease on Astane and seroquel, Non-IDDM -2, was found non- responsiveness with blank stare, lasting 10-15 minutes, while on the floor. DDx includes Seizure vs neurodegenerative disorder vs toxic metabolic syndrome. He had agitation on antipsychotic jorge and PRN. 2 negative trops. Consider low dose Beta nia pending TSH. Speech and swallow eval. Neuro - agitated at times, interspersed with blank stare, occasional responsive - EEG ordered - Hx recent TIA - May consider beta-nia - trihexyphenidyl 2 BID for parkinson. Primary team holding sinemet? - Quetiapine 50 TID; Geodon 10 IM q4h - Glaucoma: Alphagan 0.2%, Latanoprost Cardio - sinus tachy at 110s, no chest pain - trops negative x 2 - D-dimer low probability of DVT - Ramipril 10, Amlodipine 5 daily, ASA, Lipitor 10 Pulm - RR 12 - Ox 100 GI - Carb consist with regular diet Renal - Strict i/o Endo - Acccu check - Ergocalciderol - Metformin 500 qd; ISSS-low Heme - stable ID - septic work up underway - Tylenol PRN - NS 80 Prophylaxis - Heparin - Protonix S/R/D/w Dr. Mckinney - Date & Time Date: 12/07/16 Time: 12:29 <Jack Mckinney - Last Filed: 12/07/16 16:47> Meds - Medications Medications: Current Medications Acetaminophen (Tylenol 325mg Tab) 650 mg PO Q4H PRN PRN Reason: Fever >100.5 F Amlodipine Besylate (Norvasc) [address] [facility] Last Admin: 12/07/16 09:09 Dose: 5 mg Aspirin (Ecotrin) [address] [facility] Last Admin: 12/07/16 15:12 Dose: Not Given Atorvastatin Calcium (Lipitor) [address] [facility] Last Admin: 12/07/16 09:12 Dose: 10 mg Ergocalciferol (Drisdol 50,000 Intl Units Cap) [address] [facility] Last Admin: 12/07/16 00:06 Dose: 1 cap Heparin Sodium (Porcine) (Heparin) 5,000 units SC Q8 [facility] PRN Reason: Protocol Sodium Chloride (Sodium Chloride 0.9%) 1,000 mls @ 80 mls/hr IV .[id number] [facility] Last Admin: 12/07/16 12:19 Dose: 80 mls/hr Insulin Human Regular (Humulin R Low) 0 units SC ACHS [facility] PRN Reason: Protocol Last Admin: 12/07/16 12:17 Dose: Not Given Latanoprost (Xalatan Opht) [address] [facility] Last Admin: 12/07/16 00:06 Dose: 2.5 ml Metformin HCl (Glucophage) [address] [facility] Last Admin: 12/07/16 09:10 Dose: 500 mg Brimonidine 0.2% [ Alphagan 0.2% Opht] Home Med [address] [facility] Last Admin: 12/07/16 15:12 Dose: Not Given Quetiapine Fumarate (Seroquel) [address] [facility] Last Admin: 12/07/16 03:35 Dose: Not Given Quetiapine Fumarate (Seroquel) [address] [facility] Last Admin: 12/07/16 09:09 Dose: 50 mg Ramipril (Altace) [address] [facility] Last Admin: 12/07/16 09:09 Dose: 10 mg Trihexyphenidyl HCl (Artane) [address] [facility] Last Admin: 12/07/16 15:12 Dose: Not Given Ziprasidone (Geodon Inj) 10 mg IM Q4H PRN PRN Reason: Psychosis Results - Vital Signs Recent Vital Signs: Last Vital Signs Temp 99.7 F H 12/07/16 11:35 Pulse 107 H 12/07/16 15:10 Resp 20 12/07/16 11:35 BP 150/72 12/07/16 15:00 Pulse Ox 99 12/07/16 15:10 - Labs Result Diagrams: 12/07/16 10:20 12/07/16 10:20 Labs: Laboratory Results - last 24 hr 12/07/16 12/07/16 12/07/16 10:20 10:20 10:20 WBC 7.0 D RBC 4.70 Hgb 14.2 Hct 39.8 L MCV 84.7 MCH 30.2 MCHC 35.7 RDW 13.0 Plt Count 225 MPV 10.2 D-Dimer, Quantitative pCO2 pO2 HCO3 ABG pH ABG Total CO2 ABG O2 Saturation ABG Base Excess ABG Potassium Glucose Lactate FiO2 Sodium 139 Potassium 3.5 L Chloride 101 Carbon Dioxide 26 Anion Gap 16 BUN 17 Creatinine 0.6 Est GFR ( Amer) > 60 Est GFR (Non-Af Amer) > 60 Random Glucose 143 H Calcium 9.3 Phosphorus 4.0 Magnesium 2.0 Total Bilirubin 1.3 AST 22 ALT 27 Alkaline Phosphatase 115 Troponin I 0.03 D Total Protein 7.8 Albumin 4.2 Globulin 3.6 Albumin/Globulin Ratio 1.2 TSH 3rd Generation 0.61 Arterial Blood Potassium Ur Random Creatinine Ur Random Sodium Ur Random Potassium Urine Opiates Screen Urine Methadone Screen Ur Barbiturates Screen Ur Phencyclidine Scrn Ur Amphetamines Screen U Benzodiazepines Scrn U Oth Cocaine Metabols U Cannabinoids Screen 12/07/16 12/07/16 12/07/16 10:20 10:28 13:00 WBC RBC Hgb Hct MCV MCH MCHC RDW Plt Count MPV D-Dimer, Quantitative 0.43 pCO2 33 L pO2 173.0 H HCO3 23.5 ABG pH 7.46 H ABG Total CO2 24.5 ABG O2 Saturation 99.7 H ABG Base Excess 0.3 ABG Potassium 3.2 L Glucose 142 H Lactate 1.0 FiO2 32.0 Sodium 140.0 Potassium Chloride 111.0 H Carbon Dioxide Anion Gap BUN Creatinine Est GFR ( Amer) Est GFR (Non-Af Amer) Random Glucose Calcium Phosphorus Magnesium Total Bilirubin AST ALT Alkaline Phosphatase Troponin I Total Protein Albumin Globulin Albumin/Globulin Ratio TSH 3rd Generation Arterial Blood Potassium 3.2 L Ur Random Creatinine Ur Random Sodium 82 Ur Random Potassium 39.1 Urine Opiates Screen Negative Urine Methadone Screen Negative Ur Barbiturates Screen Negative Ur Phencyclidine Scrn Negative Ur Amphetamines Screen Negative U Benzodiazepines Scrn Negative U Oth Cocaine Metabols Negative U Cannabinoids Screen Negative 12/07/16 13:00 WBC RBC Hgb Hct MCV MCH MCHC RDW Plt Count MPV D-Dimer, Quantitative pCO2 pO2 HCO3 ABG pH ABG Total CO2 ABG O2 Saturation ABG Base Excess ABG Potassium Glucose Lactate FiO2 Sodium Potassium Chloride Carbon Dioxide Anion Gap BUN Creatinine Est GFR ( Amer) Est GFR (Non-Af Amer) Random Glucose Calcium Phosphorus Magnesium Total Bilirubin AST ALT Alkaline Phosphatase Troponin I Total Protein Albumin Globulin Albumin/Globulin Ratio TSH 3rd Generation Arterial Blood Potassium Ur Random Creatinine 83 Ur Random Sodium Ur Random Potassium Urine Opiates Screen Urine Methadone Screen Ur Barbiturates Screen Ur Phencyclidine Scrn Ur Amphetamines Screen U Benzodiazepines Scrn U Oth Cocaine Metabols U Cannabinoids Screen Addendum Addendum: 12/07/16 16:45 HPI, meds/labs reviewed, PMH, ROS, SH, allergies, FH reviewed and agreed upon. For the rest please see Dr. Mckinney note 12/07/16 16:47
--- NOTE | 2016-12-07 12:01 | RAD ---
HISTORY: AMS COMPARISON: 12/03/2016 FINDINGS: LUNGS: No active pulmonary disease. PLEURA: No significant pleural effusion identified, no pneumothorax apparent. CARDIOVASCULAR: Normal. OSSEOUS STRUCTURES: No significant abnormalities. VISUALIZED UPPER ABDOMEN: Normal. OTHER FINDINGS: None. IMPRESSION: No active disease.
--- NOTE | 2016-12-07 12:13 | CON ---
DATE: 12/07/2016 HISTORY OF PRESENT ILLNESS: This is a 66-year-old gentleman with history of Parkinson disease, diabetes, dyslipidemia, hypertension who was brought in to Emergency Room yesterday by relatives who noticed that he had altered mental status and became more lethargic. He also had an episode when he plainly stared into the wall and did not respond. Besides those episodes, they have become a little bit more frequent. He denies any fever, chills, chest pain, shortness of breath, nausea, vomiting, diarrhea. PAST MEDICAL HISTORY: Parkinson disease, diabetes, dyslipidemia, hypertension. SOCIAL HISTORY: No alcohol or illicit drug abuse. No tobacco smoking. FAMILY HISTORY: Noncontributory. ALLERGIES: NKDA. REVIEW OF SYSTEMS: Revealed 12 organ system other than mentioned in history of present illness is negative. MEDICATIONS: Tylenol p.r.n., Norvasc, Lipitor, regular insulin sliding scale low protocol, metformin, quetiapine, Ramipril, Geodon p.r.n. PHYSICAL EXAMINATION: GENERAL: The patient had a rapid response called on the floor where he was found to have one of those episodes where he stared off into space and nonresponding; however, at the time of examination, the patient is alert and oriented x 3. He is comfortable. He talks full sentences. He is able to protect his airways. VITAL SIGNS: Heart rate varies between 110 and 120 with regular rate on monitor , oxygen saturation 99%, respiratory rate 18, CO2 26. EKG showed sinus tachycardia. HEAD AND NECK: Atraumatic. LUNGS: Clear to auscultation bilaterally. HEART: Regular rate and rhythm. S1, S2 normal. ABDOMEN: Soft, nontender, nondistended. MUSCULOSKELETAL: Trace bilateral pedal and ankle edema. NEUROLOGIC: The patient moves all extremities spontaneously, good motor strength in both upper and lower extremities. SKIN: Moist. PSYCHOLOGIC: The patient is alert and oriented x 3. LABORATORY DATA: Sodium 139, potassium 3.5, chloride 101, carbon dioxide 28, BUN 17, creatinine 0.6, glucose 143. Troponin x 2 negative. WBC 7, hemoglobin 14.2, platelet count 225. ABG showed 7.46/33/173 on 32% FIO2. Lactic acid 1. CAT scan of the head yesterday revealed severe atrophy and no acute intracranial pathology. ASSESSMENT AND PLAN: This is a 66-year-old gentleman with isolated episodes of nonresponsiveness accompanied by blank stare into space. Those episodes last for a few minutes and then completely disappear. Differential diagnoses includes seizures, neurodegenerative disorder, toxic metabolic syndrome. CAT scan of the head did not reveal any acute intracranial pathology. The patient is afebrile, does not have leukocytosis, thus septic encephalopathy is less likely as well. The patient did have episodes of agitation and he is on antipsychotic medication. However, at present time, he is slightly lethargic and easily arousable. EKG shows sinus tachycardia. On physical exam, patient appears to be euvolemic and, as mentioned above, does not look septic. I will order D-dimers. If D-dimers come back elevated will proceed with venous doppler of low extremities. Two negative troponins argues against acute myocardial infarction as a cause of sinus tachycardia. I will also order a TSH to rule out hyperthyroidism as well. If above workup comes back negative, I might need to consider low dose of beta blockers. I will order a speech and swallow evaluation and meanwhile, will start patient on IV fluid. I will also order EEG. ccm time 40 min Jack Mckinney MD cc: [id number] TT: 12/07/2016 12:12:48 Confirmation # [id number] Dictation # [id number] bill NELSON
[2016-12-07] MEDS: Sodium Chloride 0.9% 1,000 ML IV SCH (12:19)
--- NOTE | 2016-12-07 13:00 | CT ---
PROCEDURE: CT HEAD WITHOUT CONTRAST. HISTORY: AMS COMPARISON: Noncontrast head CT performed 12/06/16 TECHNIQUE: Axial computed tomography images were obtained through the head/brain without intravenous contrast. Radiation dose: Total exam DLP = 857.50 mGy-cm. This CT exam was performed using one or more of the following dose reduction techniques: Automated exposure control, adjustment of the mA and/or kV according to patient size, and/or use of iterative reconstruction technique. FINDINGS: HEMORRHAGE: No intracranial hemorrhage. BRAIN: Moderate to severe cortical atrophy particularly involving the right high parietal lobe and left convexity. No mass effect or edema. Bilateral basal ganglia calcifications. Intracranial atherosclerotic calcifications. Scattered periventricular and subcortical white matter hypodensities, which are nonspecific, but often seen with chronic microvascular ischemic disease. Please note that MRI with diffusion imaging is more sensitive in the detection of acute ischemic event. VENTRICLES: No hydrocephalus. CALVARIUM: Unremarkable. PARANASAL SINUSES: Unremarkable as visualized. No significant inflammatory changes. MASTOID AIR CELLS: Unremarkable as visualized. No inflammatory changes. OTHER FINDINGS: None. IMPRESSION: Severe atrophy. Chronic nonspecific white matter changes.
[2016-12-07] MEDS: BRIMONIDINE 0.2% OU SCH (15:12)
--- NOTE | 2016-12-07 18:47 | PN ---
DATE: 12/07/2016 The patient is a 66-year-old male who is currently now being treated in the critical care unit. He h as a history of chronic schizophrenia, cerebrovascular disease, mild dementia and Parkinson disease. Today, after having been up all night due to agitation, pulling out IV and restlessness, he had fin ally received 50 mg Seroquel this morning, he slept. It was felt that he had shallow breathing and a code was called and he was sent to the critical care unit. His vital signs were all normal. His O2 saturation was all normal and he was afebrile and he had no EKG changes as well as a negative tropon in level. Today, I spoke at length with the nursing staff on the critical care unit, discussed his b ackground and current treatment. His mental status today: He is lying in bed, he is slightly drooli ng. He is mostly noncommunicative. He answers some questions yes and no. I reviewed his recent med ications, I reviewed progress notes and reviewed laboratory data. LABORATORY DATA: Shows white count was 7000, hemoglobin 14.2, platelet count 225,000. His metabolic profile was all normal except for a potassium of 3.5. Random glucose of 143. He had blood gases. His had an FiO2 of 32, his O2 saturation was 99.7%. His O2 saturation this morning on room air was 9 8%. VITAL SIGNS: This morning, his blood pressure was 144/72 at 11:37 a.m. at the time when he was noted to have shallow breathing. He was afebrile. His pulse rate at that time was 130. The patient's cu rrent vital signs right now: His heart rate is 108. The patient's blood pressure is 158/54. CURRENT MEDICATIONS: He is on sliding scale insulin, he is on Altace 10 mg daily, he is on Glucophag e 500 mg daily, he is on Lipitor 10 mg daily, Norvasc 5 mg daily and Drisdol 50,000 international uni ts once a week. He has an order for Seroquel 50 mg at bedtime, which he did not receive last night. He has an order for Artane 2 mg twice a day, which he has not received in the last 36 hours. He rec eives low dose aspirin, which he has not received in the last 36 hours. His last dose of Artane was 5 mg at noon on 12/06. He was on Sinemet a half a tablet 25/100 twice a day, which was stopped. The patient had a dose of Seroquel 50 mg at 9:09 this morning. IMPRESSION: The patient has chronic schizophrenia. He has a history of cerebrovascular disease with [id number] cortical atrophy involving the right parietal lobe. He has bilateral basal gangl ia calcifications and intracranial atherosclerotic calcifications. He has scattered periventricular and subcortical white matter hypodensities and chronic microvascular ischemic disease. The patient a lso has a history of diabetes mellitus, hypertension and hyperlipidemia. He has a mild developmental disorder consistent with mild autistic spectrum disorder. PLAN: I discussed management with the staff. Will order 1 mg of IV benztropine, Cogentin, due to dr van and some slight stiffness in his mouth area. Will order Artane 2 mg t.i.d. Will leave an ord er for Seroquel 25 mg q.4 hours p.r.n. for agitation and will continue to monitor mental status. Graham Keith MD cc: [id number] TT: 12/07/2016 18:46:03 Confirmation # [id number] Dictation # [id number] evangelina
[2016-12-08] MEDS: Sodium Chloride 0.9% 1,000 ML IV SCH ×2 (00:45→13:38)
[2016-12-08] MEDS: Insulin Reg-LOW-Coverage SC SCH ×4 (08:05→22:00)
--- NOTE | 2016-12-08 09:07 | PN ---
DATE: 12/08/2016 SUBJECTIVE: The patient has no complaints of any chest pain. He is able to answer questions. He is not opening his eyes. He denies headaches. PHYSICAL EXAMINATION: VITAL SIGNS: Temperature is 98.6, pulse of 86, blood pressure 151/79, respirations 20. GENERAL: The patient comfortable, in no acute distress. HEENT: Anicteric sclerae. Moist mucosa. NECK: No JVD or adenopathy. CARDIAC: S1/S2. No murmurs. No rubs. Regular. RESPIRATORY: Clear to auscultation bilaterally. No wheezes, rales, or rhonchi. Good air entry. ABDOMEN: Bowel sounds are positive, soft, nontender EXTREMITIES: No edema. Has 1+ pulses. LABS: White count 7.0. Hemoglobin 14.2. Creatinine 0.6. CT of the head shows severe atrophy. ASSESSMENT: 1. Delirium. 2. Parkinson's. 3. Schizophrenia. 4. Diabetes type 2. 5. Dyslipidemia. 6. Glaucoma. 7. L4-L5 disk herniation. PLAN: The patient is currently in the ICU. I did review the patient's events from yesterday. I did speak to the house physician yesterday. The patient had a chest x-ray that was normal. The patient is drooling, he is on Cogentin. The patient is on ramipril for hypertension. He is on aspirin. He is going to be on metformin for diabetes and on Lipitor for dyslipidemia. He is on Norvasc for hype rtension. The patient is going to be on Tylenol. The patient is on carbohydrate consistent diet. I did speak to the patient's brother this morning to give him an update on the patient's diagnosis and plan of care. I also spoke with Dr. Hagan. Capo Strauss MD cc: [id number] TT: 12/08/2016 09:07:02 Confirmation # [id number] Dictation # [id number] jn
[2016-12-08] MEDS: BRIMONIDINE 0.2% OU SCH ×2 (10:19→18:03)
--- NOTE | 2016-12-08 10:46 | PN ---
DATE: 12/08/2016 SUBJECTIVE: The patient is resting in bed, awake, smiles when you ask him questions, seems to be ruddy y comfortable, no respiratory distress, no complaints of pain, chest or abdominal, no diarrhea, no fe ruddy, chills, nausea or vomiting. PHYSICAL EXAMINATION: VITAL SIGNS: His temperature is 98.6. His pulse is 86, respirations are 19, and BP is 151/79. SKIN: Warm and dry. HEAD: Atraumatic, normocephalic. EYES: Reactive to light. EARS, NOSE AND THROAT: Seem to be within normal limits. NECK: Supple. No JVD, no thyroid enlargement, no lymph nodes. HEART: Has regular rate and rhythm, normal S1, S2. LUNGS: Reveal good breath sounds bilaterally. ABDOMEN: Soft, decreased bowel sounds. GENITALIA AND RECTAL: Deferred. MUSCULOSKELETAL: No joint deformities. EXTREMITIES: Reveal no significant edema. NEUROLOGIC: He is moving all extremities and seems to be awake and does smile when questions are pos ed. LABORATORY DATA: On 12/07/2016 revealed a white count of 7.0, hemoglobin of 14.2, hematocrit 39.7 and platelets of 225,000. Sodium is 139, potassium 3.5, chloride 101, CO2 of 26 with a BUN of 17, creat inine 0.6 and a glucose of 116. IMPRESSION: The patient has paranoid schizophrenia with Parkinson's disease as well as diabetes and a history of transient ischemic attacks. He presented to the ICU with possible tardive dyskinesia. PLAN: We will continue to monitor closely. The patient is on IV fluids. Will continue with the pat ient's insulin and metformin and will follow closely and treat aggressively along with the other cons ultants and the primary care doctor. Nicholas Argueta MD cc: [id number] TT: 12/08/2016 10:46:08 Confirmation # [id number] Dictation # [id number] bill
--- NOTE | 2016-12-08 16:09 | PN ---
DATE: 12/08/2016 SUBJECTIVE: The patient is a 66-year-old male currently being treated in the ICU for sneha crenshaw. He has had recent episodes of confusion and psychosis. The patient also has Parkinson's dise ase which complicates his treatment. His current mental status is he is lying in bed. His eyes are open, he is awake. He knows the date, but his speech is slightly slurred. He has difficulty speakin g, whether it is due to thought blocking or difficulties with speech. The patient has slightly drool ing. I spoke at length with the director medical writing, nursing staff who is caring for the patient, revie wed their history and current clinical management. CURRENT LABORATORY DATA: He has had a chest x-ray yesterday showed no active disease. CBC is all wi thin normal. Metabolically his random blood glucose is 104. His metabolic profile yesterday was a p otassium of 3.5, glucose 143. The rest of parameters were all within normal range. CURRENT MEDICATIONS: Includes a low Humulin protocol, Altace, Alphagan ophthalmic solution, Glucopha ge, Lipitor, Norvasc, Drisdol once a week, Xalatan ophthalmic solution, low dose aspirin, has an orde r for Seroquel 25 mg q. 4 hours p.r.n., had a dose today at 2:30 p.m. The patient is receiving Ken e 2 mg b.i.d. and at bedtime, heparin. VITAL SIGNS: His blood pressure is 160/83, pulse 83, he is afebrile. O2 saturation on room air is 1 00%. IMPRESSION: The patient has chronic undifferentiated schizophrenia, has Parkinson's disease. He has recent delirium. He has a history of hyperlipidemia, hypertension. He has a history of insulin-dep endent diabetes mellitus, vitamin D deficiency, and coronary artery disease. PLAN: We will order Seroquel 12.5 mg b.i.d. and at bedtime leave order for 25 mg of Seroquel q. 4 ho urs p.r.n. We will restart Sinemet 10/100 one tab t.i.d. Continue Artane 2 mg b.i.d. and at bedtime and we will continue to monitor closely his mental status. I spent 1/2 hour discussing case with the resident physician and nursing staff. Graham Keith MD cc: [id number] TT: 12/08/2016 16:08:02 Confirmation # [id number] Dictation # [id number] jn
[2016-12-08] MEDS: Latanoprost 2.5 ml Opht Soln OU SCH (21:48)
[2016-12-09] MEDS: Sodium Chloride 0.9% 1,000 ML IV SCH (01:26)
[2016-12-09] MEDS: Insulin Reg-LOW-Coverage SC SCH ×4 (07:52→21:52)
[2016-12-09 08:59] VITALS: O2SAT 98
[2016-12-09] MEDS: BRIMONIDINE 0.2% OU SCH ×2 (09:09→17:40)
[2016-12-09 09:48] LABS: CHLORIDE URINE 83 mmol/L (32-290)
--- NOTE | 2016-12-09 18:20 | PN ---
DATE: 12/09/2016 SUBJECTIVE: The patient is much more awake and alert. He has no complaints of any headaches or dizz iness, no nausea. He is tolerating his diet. PHYSICAL EXAMINATION: VITAL SIGNS: Temperature is 97.3, pulse of 59, blood pressure is 148/87, respirations 20. GENERAL: The patient comfortable, in no acute distress. HEENT: Anicteric sclerae. Moist mucosa. NECK: No JVD or adenopathy. CARDIAC: S1/S2. No murmurs. No rubs. Regular. RESPIRATORY: Clear to auscultation bilaterally. No wheezes, rales, or rhonchi. Good air entry. ABDOMEN: Bowel sounds are positive, soft, nontender, and nondistended. EXTREMITIES: No edema. Has 1+ pulses. LABORATORY DATA: White count of 7.0, hemoglobin 14.2. Creatinine is 0.6. ASSESSMENT: 1. Delirium. 2. Parkinson's. 3. Schizophrenia. 4. Diabetes type 2. 5. Dyslipidemia. 6. Glaucoma. 7. L4-L5 disk herniation. PLAN: The patient is currently comfortable, is on ramipril for his hypertension. He is receiving as pirin. He is on metformin for his diabetes. He is on amlodipine for his hypertension. He is on ins ulin sliding scale. He is on Seroquel. I did speak to the patient's brother at the bedside to give him an update on the patient's diagnosis and plan of care. He is improved clinically. He is being f ollowed by Dr. Keith. The patient will most likely need subacute rehab. I also spoke to the patien t's brother about getting a healthcare proxy. Capo Strauss MD cc: [id number] TT: 12/09/2016 18:19:03 Confirmation # [id number] Dictation # [id number] mn
[2016-12-09] MEDS: Latanoprost 2.5 ml Opht Soln OU SCH (22:13)
[2016-12-10 06:47] LABS: HEMATOCRIT 36.9 % (42.0-52.0); MEAN CELL VOLUME 84.8 fL (80.0-105.0); MEAN CORPUSCULAR HEMOGLOBIN 29.7 pg (25.0-35.0); MEAN PLATELET VOLUME 10.5 fl (7.0-11.0); RED CELL DISTRIBUTION WIDTH 13.2 % (11.5-14.5)
[2016-12-10 07:08] LABS: ALB/GLOB RATIO 1.1 (1.1-1.8); ALKALINE PHOSPHATASE 110 U/L (38-133); ALT/SGPT 28 U/L (7-56); AST/SGOT 21 U/L (15-59); BILIRUBIN,TOTAL 1.4 mg/dL (0.2-1.3); BLOOD UREA NITROGEN 17 mg/dL (7-21); CALCIUM 8.6 mg/dL (8.4-10.5); CARBON DIOXIDE 25 mmol/L (21-33); CHLORIDE 102 mmol/L (95-110); GFR AFRICAN-AMERICAN > 60; GLUCOSE,RANDOM 110 mg/dL (70-110); POTASSIUM 3.1 mmol/L (3.6-5.0); SODIUM 139 mmol/L (132-148); TOTAL PROTEIN 6.6 g/dL (5.8-8.3)
[2016-12-10] MEDS: Insulin Reg-LOW-Coverage SC SCH ×2 (07:59→12:48)
--- NOTE | 2016-12-10 08:08 | PN ---
DATE: 12/10/2016 SUBJECTIVE: The patient has no complaints of any chest pain or shortness of breath, no headaches. H e says he is much more awake and alert. He says that he slept well and he is much more feeling mario r. PHYSICAL EXAMINATION: VITAL SIGNS: Temperature is 97.3, pulse of 59, blood pressure is 148/87, respirations 20. GENERAL: The patient comfortable, in no acute distress. HEENT: Anicteric sclerae. Moist mucosa. NECK: No JVD or adenopathy. CARDIAC: S1/S2. No murmurs. No rubs. Regular. RESPIRATORY: Clear to auscultation bilaterally. No wheezes, rales, or rhonchi. Good air entry. ABDOMEN: Bowel sounds are positive, soft, nontender, and nondistended. EXTREMITIES: No edema. Has 1+ pulses. LABORATORY DATA: Potassium is . ASSESSMENT: 1. Hypokalemia. 2. Delirium. 3. Parkinson's. 4. Schizophrenia. 5. Diabetes type 2. 6. Dyslipidemia. 7. Glaucoma. 8. L4-L5 disk herniation. PLAN: The patient is currently comfortable. He is on Seroquel 12.5 mg b.i.d. and 25 Seroquel p.r.n. He is on his Sinemet. The patient is on Altace. He is going to be on metformin for his diabetes. He is on heparin for DVT prophylaxis. He is on Norvasc for hypertension. The patient is on his eye drops. Capo Strauss MD cc: [id number] TT: 12/10/2016 08:07:48 Confirmation # [id number] Dictation # [id number] lana
[2016-12-10 08:15] VITALS: BP 139/65; PULSE 50; RESP 18; TEMP 98.7
[2016-12-10] MEDS: BRIMONIDINE 0.2% OU SCH (10:05)
[2016-12-10] MEDS ORDERED: Potassium Chloride 20 mEq ER Tab PO ONE ×2 (11:40→15:40)
--- NOTE | 2016-12-10 12:34 | PN ---
DATE: 12/10/2016 SUBJECTIVE: The patient is a 66-year-old male with history of schizophrenia, Parkinson disease, atrophy of the brain and probable autistic spectrum disorder. The patient currently on the medical-surgical floor. He is somewhat more rational alert, oriented x 3, aware of his surroundings. Discussed benefit for physical therapy, but refuses acute rehab. Discussed benefits of psychiatric unit, refuses psychiatric unit. The patient's brother at bedside. I spoke at length with him. I also spoke with social service director and patient's brother. CURRENT LABORATORY DATA: White count 8000, hemoglobin 12.8, platelet count 199, 000. Metabolic profile today, his potassium is 3.1, sodium 139, chloride 102, CO2 25, anion gap 15, BUN 17, creatinine 0.4. Total bilirubin 1.4. Rest of his profile is within normal limits. MEDICATIONS: Altace, Artane 2 t.i.d., Alphagan ophthalmic solution, Drisdol once a week, Ecotrin, metformin, heparin, K-Dur, ordered 40 mEq, Lipitor 10 mg daily, Norvasc, Seroquel 25 mg q. 4 h. p.r.n. agitation, Seroquel 12.5 mg b.i.d. and at bedtime, Sinemet 10/100 one t.i.d. and Xalatan ophthalmic solution. VITAL SIGNS: Blood pressure 139/65, pulse 50, afebrile, O2 saturation 98%, respirations 18 per minute. REVIEW OF SYSTEMS: Complains of weak legs, difficulty walking,slight tremor of hands. Rest of 12 point review non-contributory. IMPRESSION: Resolving delirium, chronic undifferentiated schizophrenia, slowly resolving. He has delirium, resolving. He has Parkinson disease, vitamin D deficiency and gait dysfunction. PLAN: The patient will go home with brother. I spoke with a social service director and brother at length. Instructions given for outpatient care and will follow up as an outpatient. Spent 30 minutes in discussion with above individuals. Signed, not read. Graham Keith MD cc: [id number] TT: 12/10/2016 12:33:55 Confirmation # [id number] Dictation # [id number] an MTDD
--- NOTE | 2016-12-17 18:12 | EEG ---
DATE: 12/07/2016 CHIEF COMPLAINT: Seizures evaluation, history of Parkinson disease, hyperlipidemia, hypertension. MEDICATIONS: Ativan, latanoprost, amlodipine, heparin, Lipitor. INTERPRETATION: This is a 16-channel international recording. The background activity is composed o f 8 cycles per second. There was a small amount of beta activity to 16-20 cycles per second seen in this recording. There was a small amount of theta activity of 5-7 cycles per second seen in this tra cing. Tracing was characterized by mixed beta and theta activities. Sleep was characterized by vert ex transient waves, sleep spindles and bilateral slowing. Photic stimulation showed no change in the tracing. No paroxysmal activity noted in this recording. CONCLUSION: This is an abnormal drowsy electroencephalogram. No evidence of any epileptiform activi ty. Please clinically correlate. Cliff Jose MD cc: [id number] TT: 12/17/2016 18:11:44 Confirmation # [id number] Dictation # [id number] mn
--- NOTE | 2016-12-30 14:19 | DS ---
Please see the discharge note done on 12/10/2016 for details. Capo Strauss MD cc: [id number] TT: 12/30/2016 14:19:05 en
== END 2016-12-10 15:20 | disposition home or self-care (01) | DRG 947 ==
LOC: ED 05:51 → ERH 06:26 → OBSVTOIN 06:26 → INTOOBSV 06:26 → ERH 07:47 → 2RNO 09:00 → OBSVTOIN 18:11 → CCU 12-07 11:35 → 3RNO 12-08 17:10
PROVIDERS: ADMIT Internal Medicine Nephrology; ATTEND Internal Medicine Nephrology
DX: R41.0 Disorientation, unspecified (principal); S72.92XA Unspecified fracture of left femur, initial encounter for closed fracture; G93.89 Other specified disorders of brain; F20.0 Paranoid schizophrenia; F84.0 Autistic disorder; F20.5 Residual schizophrenia; F02.80 Dementia in other diseases classified elsewhere, unspecified severity, without behavioral disturbance, psychotic disturbance, mood disturbance, and anxiety; H40.9 Unspecified glaucoma; I10 Essential (primary) hypertension; I25.10 Atherosclerotic heart disease of native coronary artery without angina pectoris; E87.6 Hypokalemia; E78.5 Hyperlipidemia, unspecified; E78.00 Pure hypercholesterolemia, unspecified; E55.9 Vitamin D deficiency, unspecified; E11.9 Type 2 diabetes mellitus without complications; Z79.4 Long term (current) use of insulin; I67.2 Cerebral atherosclerosis; M51.26 Other intervertebral disc displacement, lumbar region; Z79.899 Other long term (current) drug therapy; Z86.73 Personal history of transient ischemic attack (TIA), and cerebral infarction without residual deficits; Z87.891 Personal history of nicotine dependence; S80.02XA Contusion of left knee, initial encounter; S80.01XA Contusion of right knee, initial encounter; Z91.81 History of falling; R40.2412 Glasgow coma scale score 13-15, at arrival to emergency department; Z68.26 Body mass index [BMI] 26.0-26.9, adult; R26.2 Difficulty in walking, not elsewhere classified; R00.0 Tachycardia, unspecified; T43.595A Adverse effect of other antipsychotics and neuroleptics, initial encounter

== ENCOUNTER 2017-07-25 03:07 | Inpatient (IN) | payer MEDICARE ==
[2017-07-25 03:07] VITALS: BMI 26.6
--- NOTE | 2017-07-25 03:32 | ED PDOC ---
Arrival/HPI - General Historian: Patient - History of Present Illness Time/Duration: Prior to Arrival Symptom Course: Unchanged Quality: Other (soreness) Context: Walking, Exertion, Home <Yusuf Gutierrez - Last Filed: 07/25/17 03:26> <Pedro Sweeney - Last Filed: 07/25/17 06:19> - General Chief Complaint: Back Pain Time Seen by Provider: 07/25/17 03:09 - History of Present Illness Narrative History of Present Illness (Text): 07/25/17 03:28 This is a 67 yo male with past medical hx of Parkinson's, glaucoma, DM, HTN, HLD , paranoid schizophrenia, presenting from home with chief complaint of lower back pain. Pt also has hx of chronic back pain and spinal stenosis. Pain became worse today when pt sustained a fall at home. Normally pt ambulates with either cane or walker. Pt was walking unaided, however, today in his kitchen when he fell down onto his buttocks. He reports the pain is lower back, 7/10, constant. It does not radiate. The fall was not witnessed. Pt is accompanied by brother. Brother gave pt some advil and tramadol with minimal relief. PMH: as above PSH: hernia sx, sx for SBO Allergies: NKDA FH: DM, HTN Home meds: include ramipril, seroquel, metformin, glaucoma eye drops, carbidopa , tramadol Social hx: former smoker. denies drinking or drug use. (Yusuf Gutierrez) Past Medical History - Provider Review Nursing Documentation Reviewed: Yes - Travel History Have you recently traveled outside [place] w/in the past 3 mons?: No - Infectious Disease Hx of Infectious Diseases: None - Tetanus Immunization Tetanus Immunization: Unknown - Cardiac Hx Cardiac Disorders: Yes Hx Hypertension: Yes - Pulmonary Hx Respiratory Disorders: No (SMOKED CIGARETTES PPD QUIT 5 YRS AGO) - Neurological Hx Neurological Disorder: Yes Hx Parkinson's Disease: Yes (hand tremors at times/dx 2 1/2 yrs ago) - HEENT Hx HEENT Disorder: Yes (eyeglasses) Hx Glaucoma: Yes - Renal Hx Renal Disorder: No - Endocrine/Metabolic Hx Diabetes Mellitus Type 2: Yes - Hematological/Oncological Hx Blood Disorders: No - Integumentary Hx Dermatological Disorder: Yes Other/Comment: bruises to knees - Musculoskeletal/Rheumatological Hx Falls: Yes (recent frequent) - Gastrointestinal Hx Gastrointestinal Disorders: No - Genitourinary/Gynecological Hx Genitourinary Disorders: No - Psychiatric Hx Psychophysiologic Disorder: No (SMOKED CIGARETTES PPD QUIT, 5 yrs ago) Hx Depression: No Hx Emotional Abuse: No Hx Physical Abuse: No Hx Substance Use: No - Surgical History Other/Comment: Hernia Repair umbilical, ?stomach sx thicks he had obstruction not sure, - Anesthesia Hx Anesthesia: No Hx Anesthesia Reactions: No Hx Malignant Hyperthermia: No - Suicidal Assessment Feels Threatened In Home Enviroment: No <Yusuf Gutierrez - Last Filed: 07/25/17 03:26> Family/Social History - Physician Review Nursing Documentation Reviewed: Yes Family/Social History: Diabetes, Hypertension Smoking Status: Former Smoker Hx Alcohol Use: No Hx Substance Use: No Hx Substance Use Treatment: No <Yusuf Gutierrez - Last Filed: 07/25/17 03:26> Allergies/Home Meds <Yusuf Gutierrez - Last Filed: 07/25/17 03:26> <Pedro Sweeney - Last Filed: 07/25/17 06:19> Allergies/Adverse Reactions: Allergies No Known Allergies Allergy (Verified 12/06/16 06:13) Home Medications: Home Meds Medication Instructions Recorded Confirmed Atorvastatin Calcium [Lipitor] 10 mg PO DAILY 04/28/14 12/06/16 Bimatoprost [Lumigan] 1 drop OU DAILY 04/28/14 12/06/16 Ramipril [Altace] 10 mg PO DAILY 04/28/14 12/06/16 Esomeprazole Magnesium [Nexium] 40 mg PO DAILY 02/04/16 12/06/16 amLODIPine [Norvasc] 5 mg PO DAILY 02/04/16 12/06/16 Brimonidine 0.2% [Alphagan 0.2% 1 drop OU BID 03/12/16 12/06/16 Opht] metFORMIN [glucOPHAGE] 500 mg PO DAILY 03/12/16 12/06/16 Carbidopa/Levodopa 25/100 mg 0.5 tab PO Q12 11/07/16 12/06/16 [Sinemet] Tramadol HCl [Ultram] 50 mg PO BID 11/07/16 12/06/16 Review of Systems - Review of Systems Constitutional: absent: Weight Change, Fevers Eyes: absent: Vision Changes, Photophobia ENT: absent: Hearing Changes, Tinnitus Respiratory: absent: SOB, Cough Cardiovascular: absent: Chest Pain, Palpitations Gastrointestinal: absent: Abdominal Pain, Stool Changes Genitourinary Male: absent: Dysuria, Frequency Musculoskeletal: Back Pain Skin: absent: Rash, Pruritis Neurological: absent: Headache, Dizziness Endocrine: absent: Diaphoresis, Polyuria Hemo/Lymphatic: absent: Adenopathy, Easy Bleeding Psychiatric: absent: Anxiety, Depression <Yusuf Gutierrez - Last Filed: 07/25/17 03:26> Physical Exam - Systems Exam Head: Present: Atraumatic, Normocephalic Mouth: Present: Moist Mucous Membranes Neck: Present: Normal Range of Motion Respiratory/Chest: Present: Clear to Auscultation. No: Respiratory Distress, Accessory Muscle Use Cardiovascular: Present: Regular Rate and Rhythm, Normal S1, S2 Abdomen: No: Tenderness, Distention, Peritoneal Signs, Rebound, Guarding Back: Present: Normal Inspection, Paraspinal Tenderness. No: Decubitus Ulcer Upper Extremity: Present: Normal Inspection. No: Cyanosis, Edema Lower Extremity: Present: Normal Inspection. No: Edema Neurological: Present: CN II-XII Intact Skin: Present: Warm, Dry Psychiatric: Present: Alert, Oriented x 3, Normal Insight, Normal Concentration <Yusuf Gutierrez - Last Filed: 07/25/17 03:26> Vital Signs Temp Pulse Resp BP Pulse Ox 07/25/17 05:34 58 L 18 132/64 96 07/25/17 03:18 98.3 F 81 18 147/71 96 Medical Decision Making <Yusuf Gutierrez - Last Filed: 07/25/17 03:26> - Lab Interpretations I have reviewed the lab results: Yes - RAD Interpretation Pr Intern: Radiologist <Pedro Sweeney - Last Filed: 07/25/17 06:19> ED Course and Treatment: Impression: Pt seen and evaluated with medical technologist generalist. Pt, whose past medical history includes Parkinson's disease, spinal stenosis, diabetes, hypertension, hyperlipidemia, paranoid schizophrenia, and glaucoma, presented for lower back pain s/p fall tonight while walking in his kitchen. Aware and agree with HPI, clinical findings, plan, and management. Plan: -- CT Lumbar Spine w/o contrast -- Labs -- Reassess and disposition 07/25/17 05:[address] Strauss, who is aware and agrees with plan. Accepts pt in to his service. Pt will go to [facility] observation for intractable back pain and difficulty ambulating. (Pedro Sweeney) - Lab Interpretations Lab Results: 07/25/17 03:50 07/25/17 03:50 Lab Results 07/25/17 04:27: PT 12.4, INR 1.13 H, APTT 25.5 07/25/17 03:50: Sodium 140, Potassium 3.6, Chloride 104, Carbon Dioxide 25, Anion Gap 15, BUN 19, Creatinine 0.7 L, Est GFR ( Amer) > 60, Est GFR ( Non-Af Amer) > 60, Random Glucose 146 H, Calcium 9.4, Total Bilirubin 1.6 H, AST 38, ALT 35, Alkaline Phosphatase 97, Total Protein 7.3, Albumin 4.4, Globulin 3.0, Albumin/Globulin Ratio 1.5 07/25/17 03:50: WBC 8.6, RBC 4.54, Hgb 13.8 L, Hct 40.4 L, MCV 89.0, MCH 30.4, MCHC 34.2, RDW 12.9, Plt Count 222, MPV 10.4, Gran % 64.2, Lymph % (Auto) 25.4, [place] % (Auto) 7.7 H, Eos % (Auto) 2.2, Baso % (Auto) 0.5, Gran # 5.50, Lymph # 2.2, Cidra # 0.7 H, Eos # 0.2, Baso # 0.04 - RAD Interpretation Radiology Orders: 07/25/17 03:37 LUMBAR SPINE W/O CONTRAST [CT] Stat - Medication Orders Current Medication Orders: Discontinued Medications Morphine Sulfate (Morphine) 2 mg IVP STAT STA Stop: 07/25/17 04:04 Last Admin: 07/25/17 04:29 Dose: 2 mg JAY Pain Assessment Document 07/25/17 04:29 MIGUEL (Rec: 07/25/17 04:29 MIGUEL [id number]) Pain Reassessment Is this a pain reassessment? Yes Sleep Is patient sleeping during reassessment? No Presence of Pain Presence of Pain Yes Location Upper or Lower Lower Pain Location Body Site Back IVP Administration Document 07/25/17 04:29 MIGUEL (Rec: 07/25/17 04:29 MIGUEL [id number]) Charges for Administration # of IVP Administrations 1 - PA / EXPLOSIVE EXPERT / Resident Statement VELVET has reviewed & agrees with the documentation as recorded. / has examined the patient and agrees with the treatment plan. <Pedro Sweeney - Last Filed: 07/25/17 06:19> Disposition/Present on Arrival - Present on Arrival History of DVT/PE: No History of Uncontrolled Diabetes: No Urinary Catheter: No History of Decub. Ulcer: No History Surgical Site Infection Following: None <Yusuf Gutierrez - Last Filed: 07/25/17 03:26> - Present on Arrival Any Indicators Present on Arrival: No History of DVT/PE: No History of Uncontrolled Diabetes: No Urinary Catheter: No History of Decub. Ulcer: No History Surgical Site Infection Following: None - Disposition Have Diagnosis and Disposition been Completed?: Yes Disposition Time: 06:18 Patient Plan: Observation <Pedro Sweeney - Last Filed: 07/25/17 06:19> - Disposition Diagnosis: Unstable gait, Intractable low back pain, Spinal stenosis Disposition: HOSPITALIZED Condition: STABLE Forms: [employer] ([employer]riac)
[2017-07-25] MEDS ORDERED: Morphine 2 mg/ml ISec IVP STA (04:03)
[2017-07-25 04:25] LABS: BASO # 0.04 K/mm3 (0.0-2.0); BASO % 0.5 % (0.0-3.0); EOS # 0.2 (0.0-0.7); EOS % 2.2 % (1.5-5.0); GRAN # 5.5 (1.4-6.5); GRAN % 64.2 % (50.0-68.0); HEMATOCRIT 40.4 % (42.0-52.0); LYMPH # 2.2 (1.2-3.4); LYMPH % 25.4 % (22.0-35.0); MEAN CORPUSCULAR HEMOGLOBIN 30.4 pg (25.0-35.0); MEAN CORPUSCULAR HGB CONC 34.2 g/dl (31.0-37.0); MEAN PLATELET VOLUME 10.4 fl (7.0-11.0); MONO # 0.7 (0.1-0.6); MONO % 7.7 % (1.0-6.0); RED CELL DISTRIBUTION WIDTH 12.9 % (11.5-14.5); WHITE BLOOD COUNT 8.6 10^3/ul (4.5-11.0)
[2017-07-25 04:28] LABS: ALB/GLOB RATIO 1.5 (1.1-1.8); ALKALINE PHOSPHATASE 97 U/L (38-126); ALT/SGPT 35 U/L (7-56); AST/SGOT 38 U/L (17-59); BILIRUBIN,TOTAL 1.6 mg/dL (0.2-1.3); BLOOD UREA NITROGEN 19 mg/dL (7-21); CALCIUM 9.4 mg/dL (8.4-10.5); CARBON DIOXIDE 25 mmol/L (21-33); CHLORIDE 104 mmol/L (98-107); GFR AFRICAN-AMERICAN > 60; GLUCOSE,RANDOM 146 mg/dL (70-110); POTASSIUM 3.6 mmol/L (3.6-5.0); SODIUM 140 mmol/L (132-148); TOTAL PROTEIN 7.3 g/dL (5.8-8.3)
--- NOTE | 2017-07-25 05:45 | CT ---
EXAM: CT Lumbar Spine Without Intravenous Contrast EXAM DATE/TIME: 07/25/2017 3:37 AM CLINICAL HISTORY: 67 years old, male; Pain; Low back pain; Additional info: Fall/low back pain TECHNIQUE: Axial computed tomography images of the lumbar spine without intravenous contrast. All CT scans at this facility use one or more dose reduction techniques, viz.: automated exposure control; ma/kV adjustment per patient size (including targeted exams where dose is matched to indication; i.e. head); or iterative reconstruction technique. Coronal and sagittal reformatted images were created and reviewed. COMPARISON: CT - LUMBAR SPINE W/O CONTRAST 2016-06-13 00:38 FINDINGS: There are degenerative changes in the osseous structures. The vertebral bodies are well aligned. The vertebral body height is well maintained. No fractures. Again seen are broad-based disc protrusions at L3-4, L4-5, and L5-S1 resulting in mild central stenosis. Stable mild bilateral perinephric stranding. IMPRESSION: No acute findings.
[2017-07-25 05:59] LABS: INR 1.13 (0.93-1.08); PARTIAL THROMBOPLASTIN TIME 25.5 Seconds (25.1-36.5)
[2017-07-25] MEDS ORDERED: Bupivacaine 0.5% Inj(30mL) IJ ONE (08:17)
[2017-07-25] MEDS ORDERED: MethylPREDNISolone Depo 40 mg/ml Inj IM ONE (08:17)
[2017-07-25] MEDS: Oxycodone/Acetaminophen 5/325 mg Tab PO PRN ×2 (09:10→20:19)
[2017-07-25] MEDS ORDERED: Non Formulary Medication (Brimonidine 0.2% [Alphagan 0.2% Opht] 1 DROP) OU SCH ×2 (10:00)
[2017-07-25] MEDS ORDERED: Non Formulary Medication (Bimatoprost [Lumigan] 1 DROP) OU SCH (10:00)
--- NOTE | 2017-07-25 10:10 | CON ---
DATE: 07/25/2017 ORTHOPEDIC CONSULTATION HISTORY OF PRESENT ILLNESS: The patient is a 67-year-old male who came in last night with complaint of low back pain from a fall at home, which he has fallen many times before for neurologic reasons and psychiatric reasons, but no fracture on the CT scan of his lumbar spine, which was done yesterday on 07/25/2017, today's date is 07/26/2017 and the neurologic status is fine. He can move his legs appropriately, but likes to keep his hips and knees flexed when at rest. He has tenderness to lower lumbar spine. PLAN: I told we could offer him an injection of Depo-Medrol, Marcaine for pain relief with a trigger point in the sacroiliac joint. He is going to think about it and await back this afternoon to hopefully inject the spine with trigger point to help reduce his pain. In the meantime, we are going to write for physical therapy for lumbosacral sprain and sacroiliac sprain and which will be back mobilizing exercise and encourage him to ambulate with a walker, weightbearing to tolerance for this chronic low back sprain and sacroiliac sprain. CT scan shows mild osteoarthritis of the lumbar spine and lumbosacral spine. Rao Hernandez DO
--- NOTE | 2017-07-25 11:28 | HP ---
CHIEF COMPLAINT AND HISTORY OF PRESENT ILLNESS: This is a 67-year-old male who is coming into the hospital with complaints of back pain. The patient has a past medical history of Parkinson's, glaucoma, diabetes type 2, hypertension, and dyslipidemia. He also has a history of paranoid schizophrenia. He lives at home with his brother. He has been complaining of lower back pain. He states he is having difficulty in walking. He does have a history of chronic back pain secondary to spinal stenosis. He had multiple falls at home. He states the physical therapist was coming to the home, but he was not improving. He denies any dysuria. No nausea and no vomiting. No fever, headaches, or chills. No weakness in the arms or the legs. He has no headaches and no dizziness. His appetite has been unchanged. REVIEW OF SYSTEMS: All other review of symptoms are within normal limits except as mentioned. ALLERGIES: NO KNOWN DRUG ALLERGIES. MEDICATIONS: Home medications have been reviewed on the [facility], they include ramipril, Seroquel, metformin, glaucoma eye drops, carbidopa and levodopa, and tramadol. FAMILY HISTORY: He has a history of diabetes and hypertension in the family. SOCIAL HISTORY: He is a former smoker, but currently he is not smoking. He denies alcohol or drug use. PAST MEDICAL HISTORY: 1. Hypertension. 2. Dyslipidemia. 3. Diabetes type 2. 4. Glaucoma. 5. Parkinson's. 6. Femur fracture. 7. L4-L5 disk herniation. 8. Paranoid schizophrenia. PHYSICAL EXAMINATION VITAL SIGNS: He has a temperature of 97.9, pulse of 57, blood pressure of 142/67, respirations of 18, and O2 saturation of 96%. GENERAL: The patient lying in bed, uncomfortable, and in no acute distress. HEENT: Atraumatic and normocephalic. Anicteric sclerae. Moist mucosa. [place] conjunctivae. No oral lesions. NECK: No JVD, anterior and posterior adenopathy, thyromegaly, or bruits. CARDIOVASCULAR: S1 and S2 regular. No murmur, rubs, or gallop. LUNGS: Clear to auscultation bilaterally. No wheezes, rales, or rhonchi. ABDOMEN: Bowel sounds are positive. Soft, nontender and nondistended. No hepatosplenomegaly. No rebound and no guarding EXTREMITIES: No cyanosis, clubbing, or edema. NEUROLOGIC: No facial asymmetry. Tongue is midline. No uvula deviation. Power is 5/5 upper extremity and lower extremity. Sensation intact in upper extremity and lower extremity. He was not able to walk. In the arm, there is some muscle rigidity bilaterally. PSYCHIATRIC: He is awake, alert and oriented x3. No anxiety or depression. He has normal affect. GENITOURINARY: No CVA tenderness. VASCULAR: 2+ pulses in the carotid pulses and pedal pulses. SKIN: No erythema or nodules SPINE: Shows normal curvature. EXTREMITIES: No Cyanosis and clubbing, no edema. LABORATORY DATA: White count of 8.6, hemoglobin of 13.8, and platelet count is 222. INR is 1.13. Sodium is 140, potassium is 3.6, and creatinine is 0.7. He has glucose of 146. DIAGNOSTIC DATA: His lumbar spine CT shows no acute findings. There is a disk protrusion at L3-L4, L4-L5 and L5-S1. ASSESSMENT: 1. Fall. 2. Spinal stenosis with chronic back pain. 3. Diabetes type 2. 4. Parkinson's. 5. Hypertension. 6. Dyslipidemia. 7. Paranoid schizophrenia, stable. 8. L4-L5 disk herniation. 9. Glaucoma. PLAN: The patient is currently comfortable. He is going to be admitted to the hospital for further evaluation. I will get Neurology and Orthopedics to evaluate the patient. He is going to be on metformin for his diabetes. He is going to continue Lipitor for his dyslipidemia. He is on Norvasc for his hypertension. He is going to continue with carbidopa and levodopa for his Parkinson's. His dosages seem low to me. I will wait for further input from Neurology. He is going to continue his drops for his glaucoma, he is going to continue with latanoprost. He will also continue his ramipril for his hypertension. He is going to be on heart healthy diet. We will get physical therapy to evaluate the patient. We will update the patient's brother. Capo Strauss MD
[2017-07-25 12:04] LABS: URINE BILIRUBIN NEGATIVE (NEGATIVE); URINE BLOOD NEGATIVE (NEGATIVE); URINE GLUCOSE (UA) NEGATIVE (NEGATIVE); URINE KETONE NEGATIVE (NEGATIVE); URINE LEUKOCYTE ESTERASE NEGATIVE Leu/uL (NEGATIVE); URINE PROTEIN NEGATIVE mg/dL (<30 mg/dL); URINE UROBILINOGEN 0.2 E.U./dL (<1 E.U./dL)
[2017-07-25 12:05] LABS: URINE APPEARANCE CLEAR (CLEAR); URINE COLOR YELLOW (YELLOW)
[2017-07-25] MEDS: Insulin Reg-LOW-Coverage SC SCH ×3 (12:31→21:53)
[2017-07-25] MEDS ORDERED: Home Med 1 UNIT PO SCH (16:00)
[2017-07-25] MEDS: [UNRECOGNIZED DRUG - OTHER] PO SCH ×2 (16:41→21:53)
[2017-07-25] MEDS: BRIMONIDINE 0.2% OU SCH (17:57)
[2017-07-25] MEDS ORDERED: Home Med 1 UNIT OU SCH (18:00)
[2017-07-25] MEDS: Latanoprost 2.5 ml Opht Soln OU SCH (22:05)
[2017-07-26] MEDS: Insulin Reg-LOW-Coverage SC SCH ×4 (01:16→17:15)
[2017-07-26] MEDS: Oxycodone/Acetaminophen 5/325 mg Tab PO PRN (01:34)
--- NOTE | 2017-07-26 02:20 | CON ---
DATE: 07/25/2017 LOCATION: The patient is seen earlier today in room 369, bed 2. CHIEF COMPLAINT: Difficulty urinating times several days. HISTORY OF PRESENT ILLNESS: This is a 67-year-old male with past medical history significant for diabetes mellitus, Parkinson's, glaucoma, hypertension, and dyslipidemia. The patient also suffers from paranoid schizophrenia. He lives at home with his brother. The patient admitted with chronic back pain secondary to spinal stenosis. The patient having difficulty with urination and Infectious Disease consultation requested. The patient is not having any fevers, any chills. No chest pain. Just difficulty urination. There is dysuria and frequency. PAST MEDICAL HISTORY: Significant for diabetes mellitus, paranoid schizophrenia, spinal stenosis, Parkinson's, glaucoma, hypertension, and dyslipidemia. PAST SURGICAL HISTORY: Significant for hernia surgery. MEDICATIONS: At home include the patient to be on metformin, Norvasc, Artane, tramadol, and Lipitor. PHYSICAL EXAMINATION VITAL SIGNS: Temperature is 98, blood pressure is 130/60, heart rate of 81, and respiratory rate of 20. HEENT: Unremarkable. NECK: Supple. LUNGS: Decreased breath sounds. HEART: Normal S1 and S2. ABDOMEN: Soft, nontender. No organomegaly. No rebound, no guarding, no masses. LABORATORY DATA: Reveals white of 8.6, hemoglobin of 13, platelets of 222. Coagulation is noted. Chemistry reveals BUN of 19, creatinine of 0.7. The patient urinalysis reveals essentially unremarkable urinalysis. The patient had a final CAT of the lumbar spine, which reveals degenerative changes. ASSESSMENT AND PLAN: This is a 67-year-old male with diabetes, paranoid schizophrenia, spinal stenosis, Parkinson's disease, and glaucoma with hypertension, dyslipidemia, anxiety, hernia, admitted now and the patient complaining of frequency and dysuria with completely normal urinalysis. We will repeat urinalysis and urine cultures. We will do an sexually transmitted disease workup including human immunodeficiency virus,GC, RPR, and chlamydia workup and we will make further recommendation. Etiology of the dysuria and frequency is not entirely clear. Myke Montesinos MD
--- NOTE | 2017-07-26 04:07 | CON ---
DATE: HISTORY OF PRESENT ILLNESS: This is a 67-year-old male with past medical history of Parkinson's disease, glaucoma, diabetes, hypertension, hyperlipidemia, also history of paranoid schizophrenia and complaining of low back pain and has a difficulty walking. The patient also had falls at home *------* to evaluate the patient for Parkinson's. REVIEW OF SYSTEMS: A 10-point review of systems was negative except difficulty ambulating, and he has a masked face, rigidity. ALLERGIES: NO KNOWN DRUG ALLERGIES. MEDICATIONS: Reviewed, increased the Sinemet. SOCIAL HISTORY: He is an ex-smoker. Does not drink. PAST MEDICAL HISTORY: Hypertension, diabetes, glaucoma, Parkinson's disease, disk disease, and paranoid schizophrenia. PHYSICAL EXAMINATION: HEENT: Normocephalic, atraumatic. NECK: Supple. NEUROLOGIC: Awake and oriented to self. Cranial nerves II through XII are tested. Masked face. Pupils reactive. No facial asymmetry. Tongue midline. Motor examination, moves all the extremities spontaneously. Deep tendon reflexes 1+. Mild rigidity of both wrists and lower extremities. Plantars are downgoing. Sensory appears intact. Cerebellar and gait, deferred. IMPRESSION: A 67-year-old male with history of Parkinson's, glaucoma, diabetes, hypertension, dyslipidemia, disk disease, and paranoid schizophrenia. PLAN: We will increase Sinemet 25/100 mg p.o. t.i.d. Further management after the results of above. Carlin Jose MD
[2017-07-26] MEDS: [UNRECOGNIZED DRUG - OTHER] PO SCH ×3 (09:03→21:48)
--- NOTE | 2017-07-26 10:14 | PCM.URO ---
Urology Progress Note - Objective Lab Studies: Reviewed (gu plans: work up in progress , evaluate for retention, uti, full note to be dictated, thanks) Lab Results Last 24 Hours: Laboratory Results - last 24 hr 07/25/17 07/25/17 07/25/17 11:46 11:51 15:54 POC Glucose (mg/dL) 161 H 111 H Urine Color Yellow Urine Appearance Clear Urine pH 6.0 Ur Specific [place] 1.010 Urine Protein Negative Urine Glucose (UA) Negative Urine Ketones Negative Urine Blood Negative Urine Nitrate Negative Urine Bilirubin Negative Urine Urobilinogen 0.2 Ur Leukocyte Esterase Negative 07/25/17 07/26/17 21:04 07:45 POC Glucose (mg/dL) 168 H 132 H Urine Color Urine Appearance Urine pH Ur Specific [place] Urine Protein Urine Glucose (UA) Urine Ketones Urine Blood Urine Nitrate Urine Bilirubin Urine Urobilinogen Ur Leukocyte Esterase Intake & Output: Intake & Output 07/25/17 07/26/17 07/26/17 18:59 06:59 18:59 Intake Total 740 780 Output Total 350 400 Balance 390 380 Intake: Oral 740 780 Output: Urine 350 400 Urine, Voided 350 400 Other: Voiding Method Urinal # Voids Urine, Voided 2 300 # Bowel Movements 1 0 Vital Signs: Vital Signs - 24 hr 07/25/17 07/26/17 16:00 06:00 Temperature 98 F 97.8 F Pulse Rate 50 L Pulse Rate [ 67 Radial] Respiratory 18 20 Rate Blood Pressure 128/60 Blood Pressure 104/59 L [Right Arm] O2 Sat by Pulse 97 Oximetry
[2017-07-26] MEDS: BRIMONIDINE 0.2% OU SCH ×2 (10:27→18:36)
--- NOTE | 2017-07-26 10:43 | PN ---
DATE: 07/26/2017 SUBJECTIVE: The patient has no complaints of any chest pain and no shortness of breath. No headaches or dizziness. He says he is not able to ambulate. PHYSICAL EXAMINATION VITAL SIGNS: Temperature is 98, pulse is 67, blood pressure is 104/59, and respirations are 18. GENERAL: The patient is lying in bed, flat, comfortable. HEENT: No oral lesion. Anicteric sclerae. Moist mucosa. NECK: No JVD, adenopathy, or thyromegaly. CARDIOVASCULAR: S1 and S2, regular. No murmurs, rubs, or gallops. LUNGS: Clear to auscultation bilaterally. No wheeze, rales, or rhonchi. ABDOMEN: Bowel sounds are positive, soft, nontender and nondistended. EXTREMITIES: no cyanosis, clubbing or edema. LABORATORY DATA: White count of 8.6, hemoglobin of 13.8, and creatinine of 0.7. ASSESSMENT: 1. Fall. 2. Gait dysfunction. 3. Spinal stenosis with chronic back pain. 4. Diabetes type II. 5. Parkinson's. 6. Hypertension. 7. Dyslipidemia. 8. Paranoid schizophrenia, stable. 9. L4-L5 disk herniation. 10. Glaucoma. PLAN: The patient is currently comfortable. The patient is on metformin for his diabetes. The patient is on his home medications for his glaucoma and brimonidine, this will be continued. The patient is on Norvasc for hypertension. He is going to be on Lipitor for dyslipidemia. The patient is to continue on Percocet, this has been increased to 3 times a day. The patient is on heart healthy diet. The patient was seen by physical therapy. He was advised to go to Subacute Rehab, he is not open to the idea. We will talked to the patient's brother. I also spoke with Dr. Viramontes who is the patient's primary. I will see if he will call TCU. Capo Strauss MD
--- NOTE | 2017-07-26 12:49 | PN ---
DATE: 07/26/2017 SUBJECTIVE: The patient is in bed in no acute distress, nontoxic. PHYSICAL EXAMINATION: VITAL SIGNS: On exam, temperature is 98, blood pressure is 120/60, and respiratory rate of 18. HEENT: Unremarkable. NECK: Supple. LUNGS: Have decreased breath sounds. HEART: Normal S1 and S2. ABDOMEN: Soft and nontender. LABORATORY EXAMINATION: Reveals a white count of 8.6, hemoglobin of 13, and platelets of 222. Chemistries reveals a BUN of 19 and creatinine of 0.7. Urinalysis is noted. Microbiology is noted and pending. Review of orders reveals the patient to be on no antibiotics. Dr. Carlin Jose's consultation is appreciated. ASSESSMENT AND PLAN: This is a 67-year-old male with diabetes mellitus with paranoid schizophrenia, spinal stenosis, Parkinson's disease, glaucoma, hypertension, dyslipidemia, anxiety, and hernia admitted complaining of frequency and dysuria urinalysis. Awaiting for workup. Currently off of antibiotics. Awaiting for the urine culture and a repeat urinalysis and further workup. We will make further recommendations. Currently, the patient is off of antibiotics, although he is still complaining of dysuria. Myke Montesinos MD
--- NOTE | 2017-07-26 13:17 | US ---
PROCEDURE: Ultrasound of the Kidneys HISTORY: hydronephrosis COMPARISON: None available. TECHNIQUE: Sonogram of the kidneys. FINDINGS: RIGHT KIDNEY: Measures: cm. Normal in size, contour and echogenicity. No stone, solid mass lesion or hydronephrosis visualized. LEFT KIDNEY: Measures: cm. Normal in size, contour and echogenicity. No stone, solid mass lesion or hydronephrosis visualized. OTHER FINDINGS: None. IMPRESSION: Unremarkable renal sonogram.
--- NOTE | 2017-07-26 13:19 | US ---
PROCEDURE: HISTORY: retention COMPARISON: TECHNIQUE: FINDINGS: The urinary bladder demonstrates no wall thickening or calculus. Both ureteral jets are observed. There is a large postvoid residual of 800 cc. The prostate gland is mildly enlarged. IMPRESSION: Large postvoid residual of 800 cc.
--- NOTE | 2017-07-26 13:29 | CT ---
PROCEDURE: CT Abdomen and Pelvis without intravenous contrast HISTORY: back pain COMPARISON: 04/28/2014 TECHNIQUE: Without contrast.. Contrast Dose: Radiation dose: Total exam DLP = 648 mGy-cm. This CT exam was performed using one or more of the following dose reduction techniques: Automated exposure control, adjustment of the mA and/or kV according to patient size, and/or use of iterative reconstruction technique. FINDINGS: LOWER THORAX: Unremarkable. LIVER: Unremarkable. No gross lesion or ductal dilatation. GALLBLADDER AND BILE DUCTS: Unremarkable. PANCREAS: Unremarkable. No gross lesion or ductal dilatation. SPLEEN: Unremarkable. ADRENALS: Unremarkable. No mass. KIDNEYS AND URETERS: Unremarkable. No hydronephrosis. No solid mass. VASCULATURE: Unremarkable. No aortic aneurysm. BOWEL: Unremarkable. No obstruction. No gross mural thickening. APPENDIX: Unremarkable. Normal appendix. PERITONEUM: Unremarkable. No free fluid. No free air. There is a hernia mesh seen along the anterior abdominal wall. This is unchanged LYMPH NODES: Unremarkable. No enlarged lymph nodes. BLADDER: Unremarkable. REPRODUCTIVE: Unremarkable. BONES: No acute fracture. OTHER FINDINGS: None. IMPRESSION: No acute findings
--- NOTE | 2017-07-26 17:58 | CP.PCM.PN ---
<Libia Lombardi - Last Filed: 07/26/17 20:35> Subjective - Date & Time of Evaluation Date of Evaluation: 07/26/17 Time of Evaluation: 09:00 - Subjective Subjective: PGY-2 Neurology progress note for Dr. Jose's service Patient seen and examined at bedside, no acute distress. Patient states that he is having difficulty walking and would like physical therapy but does not want to go to rehab, prefers home with services. Objective - Vital Signs/Intake and Output Vital Signs (last 24 hours): Temp Pulse Resp BP Pulse Ox 98.6 F 93 H 20 118/80 97 07/26/17 16:00 07/26/17 16:00 07/26/17 16:00 07/26/17 16:00 07/26/17 16:00 Intake and Output: 07/26/17 07/26/17 06:59 18:59 Intake Total 780 600 Output Total 400 500 Balance 380 100 - Medications Medications: Current Medications Acetaminophen (Tylenol 325mg Tab) 650 mg PO Q4H PRN PRN Reason: Pain, Mild (1-3) Last Admin: 07/25/17 12:30 Dose: 650 mg Amlodipine Besylate (Norvasc) 5 mg PO DAILY [facility] Last Admin: 07/26/17 10:25 Dose: 5 mg Atorvastatin Calcium (Lipitor) 10 mg PO HS [facility] Last Admin: 07/25/17 21:53 Dose: 10 mg Carbidopa/Levodopa (Sinemet) 1 tab PO TID [facility] Last Admin: 07/26/17 17:47 Dose: 1 tab Home Med (Home Med) 1 unit PO 0800,1600,2200 [facility] Last Admin: 07/26/17 17:16 Dose: 1 unit Home Med (Home Med) 1 unit OU BID [facility] Last Admin: 07/26/17 10:27 Dose: Not Given Insulin Human Regular (Humulin R Low) 0 units SC ACHS [facility] PRN Reason: Protocol Last Admin: 07/26/17 17:15 Dose: 1 units Latanoprost (Xalatan Opht) 0 ml OU HS [facility] Last Admin: 07/25/17 22:05 Dose: 2.5 ml Metformin HCl (Glucophage) 500 mg PO DAILY [facility] Last Admin: 07/26/17 10:25 Dose: 500 mg Oxycodone/Acetaminophen (Percocet 5/325 Mg Tab) 1 tab PO Q4H PRN PRN Reason: Pain, moderate (4-7) Stop: 07/28/17 08:52 Last Admin: 07/26/17 01:34 Dose: 1 tab Quetiapine Fumarate (Seroquel) 12.5 mg PO BID [facility] PRN Reason: Protocol Last Admin: 07/26/17 17:46 Dose: 12.5 mg Ramipril (Altace) 10 mg PO DAILY [facility] Last Admin: 07/26/17 10:25 Dose: 10 mg - Labs Labs: PT 12.4 SECONDS (9.4-12.5) 07/25/17 04:27 INR 1.13 (0.93-1.08) H 07/25/17 04:27 APTT 25.5 Seconds (25.1-36.5) 07/25/17 04:27 - Constitutional Appears: Well - Head Exam Head Exam: ATRAUMATIC, NORMAL INSPECTION, NORMOCEPHALIC - Eye Exam Eye Exam: EOMI, Normal appearance - ENT Exam ENT Exam: Mucous Membranes Moist - Respiratory Exam Respiratory Exam: Clear to Ausculation Bilateral, NORMAL BREATHING PATTERN. absent: Rhonchi, Wheezes, Respiratory Distress - Cardiovascular Exam Cardiovascular Exam: REGULAR RHYTHM - Neurological Exam Neurological Exam: Alert, Awake, CN II-XII Intact, Oriented x3 Neuro motor strength exam: Left Upper Extremity: 5, Right Upper Extremity: 5, Left Lower Extremity: 5, Right Lower Extremity: 5 Assessment and Plan - Assessment and Plan (Free Text) Assessment: 67 yo male with PMH of parkinson's disease, glaucoma, diabetes, HTN, Hyperlipidemia, history of paranoid schizophrenia presented with difficulty walking and lower back pain. - CT head - sinement was increased to 25/100mg TID - gabapentin 300HS for naturopathic back pain - PT/OT - considered subacute rehab or home with services - follow up with neurology outpatient case reviewed and discussed with attending <Cliff Jose - Last Filed: 07/26/17 23:35> Objective - Vital Signs/Intake and Output Vital Signs (last 24 hours): Temp Pulse Resp BP Pulse Ox 98.6 F 93 H 20 118/80 97 07/26/17 16:00 07/26/17 16:00 07/26/17 16:00 07/26/17 16:00 07/26/17 16:00 Intake and Output: 07/26/17 07/27/17 18:59 06:59 Intake Total 600 660 Output Total 500 500 Balance 100 160 - Medications Medications: Current Medications Acetaminophen (Tylenol 325mg Tab) 650 mg PO Q4H PRN PRN Reason: Pain, Mild (1-3) Last Admin: 07/25/17 12:30 Dose: 650 mg Amlodipine Besylate (Norvasc) 5 mg PO DAILY [facility] Last Admin: 07/26/17 10:25 Dose: 5 mg Atorvastatin Calcium (Lipitor) 10 mg PO HS [facility] Last Admin: 07/26/17 21:49 Dose: 10 mg Carbidopa/Levodopa (Sinemet) 1 tab PO TID [facility] Last Admin: 07/26/17 17:47 Dose: 1 tab Home Med (Home Med) 1 unit PO 0800,1600,2200 [facility] Last Admin: 07/26/17 21:48 Dose: 1 unit Home Med (Home Med) 1 unit OU BID [facility] Last Admin: 07/26/17 18:36 Dose: Not Given Insulin Human Regular (Humulin R Low) 0 units SC ACHS [facility] PRN Reason: Protocol Last Admin: 07/26/17 17:15 Dose: 1 units Latanoprost (Xalatan Opht) 0 ml OU HS [facility] Last Admin: 07/26/17 21:50 Dose: 2.5 ml Metformin HCl (Glucophage) 500 mg PO DAILY [facility] Last Admin: 07/26/17 10:25 Dose: 500 mg Oxycodone/Acetaminophen (Percocet 5/325 Mg Tab) 1 tab PO Q4H PRN PRN Reason: Pain, moderate (4-7) Stop: 07/28/17 08:52 Last Admin: 07/26/17 01:34 Dose: 1 tab Quetiapine Fumarate (Seroquel) 12.5 mg PO BID [facility] PRN Reason: Protocol Last Admin: 07/26/17 17:46 Dose: 12.5 mg Ramipril (Altace) 10 mg PO DAILY [facility] Last Admin: 07/26/17 10:25 Dose: 10 mg - Labs Labs: PT 12.4 SECONDS (9.4-12.5) 07/25/17 04:27 INR 1.13 (0.93-1.08) H 12/14/17 04:27 APTT 25.5 Seconds (25.1-36.5) 07/25/17 04:27 Attending/Attestation - Attestation I have personally seen and examined this patient.: Yes I have fully participated in the care of the patient.: Yes I have reviewed all pertinent clinical information, including history, physical exam and plan: Yes
[2017-07-26] MEDS ORDERED: Bacitracin 500 Units/gm Oint Foilpak UD TOP PRN (18:10)
[2017-07-26 21:20] LABS: PH,URINE 6.5 (4.7-8.0); URINE APPEARANCE CLEAR (CLEAR); URINE BILIRUBIN NEGATIVE (NEGATIVE); URINE BLOOD TRACE-LYSED (NEGATIVE); URINE COLOR YELLOW (YELLOW); URINE GLUCOSE (UA) NEGATIVE (NEGATIVE); URINE KETONE NEGATIVE (NEGATIVE); URINE LEUKOCYTE ESTERASE NEGATIVE Leu/uL (NEGATIVE); URINE PROTEIN NEGATIVE mg/dL (<30 mg/dL); URINE UROBILINOGEN 0.2 E.U./dL (<1 E.U./dL)
[2017-07-26 21:37] LABS: URINE WBC 0 - 2 /hpf (0-6)
[2017-07-26 21:38] LABS: URINE AMORPHOUS SEDIMENT FEW; URINE BACTERIA MOD (NEG)
[2017-07-26] MEDS: Latanoprost 2.5 ml Opht Soln OU SCH (21:50)
[2017-07-27] MEDS: Oxycodone/Acetaminophen 5/325 mg Tab PO PRN (07:00)
[2017-07-27] MEDS: Insulin Reg-LOW-Coverage SC SCH ×5 (07:56→22:44)
[2017-07-27] MEDS: [UNRECOGNIZED DRUG - OTHER] PO SCH ×3 (08:07→22:42)
[2017-07-27] MEDS: BRIMONIDINE 0.2% OU SCH ×2 (10:35→18:07)
[2017-07-27] MEDS ORDERED: MethylPREDNISolone Depo 40 mg/ml Inj IM ONE (14:00)
[2017-07-27] MEDS ORDERED: Bupivacaine 0.5% Inj(30mL) IJ ONE (14:00)
[2017-07-27] MEDS: Latanoprost 2.5 ml Opht Soln OU SCH (22:42)
--- NOTE | 2017-07-28 00:01 | PN ---
DATE: SUBJECTIVE: The patient is a 67-year-old, seen and examined, sitting in chair, seems to be comfortable, state he has difficulty walking and he had multiple falls at home because of his Parkinson's disease. PHYSICAL EXAMINATION GENERAL: He is awake, alert, oriented and able to communicate. VITAL SIGNS: He is afebrile, pulse 51, respirations 18 and blood pressure 141/73. HEART: S1 and S2 audible. LUNGS: Bilateral fair airflow. No rhonchi or crackles. ABDOMEN: Soft, nontender. No rebound. No guarding. EXTREMITIES: Bilateral legs no edema. NEUROLOGIC: He is awake and alert, able to communicate. LABORATORY DATA: Blood sugar is 88. Urine culture is negative. CT scan of the abdomen and pelvis was done that shows no acute finding. ASSESSMENT: 1. History of Parkinson's disease status post multiple fall. 2. Hypertension. 3. History of spinal stenosis with chronic back pain. 4. Non insulin-dependent diabetes. 5. Hypertension. 6. Hyperlipidemia. 7. History of paranoid schizophrenia. PLAN: Currently, the patient is being followed neurologist and urologist, continue him on metformin and ramipril. Blood sugars being monitored. He has been given analgesic. Awaiting TCU evaluation and transfer. Chris Hernandez MD
--- NOTE | 2017-07-28 00:40 | PN ---
DATE: 07/27/2017 SUBJECTIVE: The patient is in bed in no acute distress, nontoxic. No fever. No chills. PHYSICAL EXAMINATION: VITAL SIGNS: Temperature is 98, blood pressure of 140/70, respiratory rate of 18 and heart rate of 51. HEENT: Unremarkable. NECK: Supple. LUNGS: Have decreased breath sounds. HEART: Normal S1 and S2. ABDOMEN: Soft and nontender. LABORATORY DATA: Reveals a white count of 8.6, hemoglobin of 13 and platelets of 222. Chemistries reveals that patient has BUN of 19, creatinine of 0.7. Urinalysis is noted. RPR is negative and HIV is negative. Urine cultures no growth. Dr. Jose's note is reviewed. ASSESSMENT AND PLAN: A 67-year-old male with diabetes and paranoid schizophrenia, spinal stenosis, Parkinson's disease, glaucoma, hypertension, dyslipidemia, hernia admitted with history of frequency, urine culture negative. The patient is currently off of antibiotics. Dr. Del Angel's urology note is reviewed. RPR is negative. Human immunodeficiency virus is negative. The patient had a CAT scan of the abdomen and pelvis, no acute findings. We will follow closely with you. Myke Montesinos MD
[2017-07-28] MEDS: Insulin Reg-LOW-Coverage SC SCH ×4 (08:05→22:48)
[2017-07-28] MEDS: [UNRECOGNIZED DRUG - OTHER] PO SCH ×3 (08:09→21:19)
--- NOTE | 2017-07-28 13:01 | PN ---
DATE: 07/28/2017 SUBJECTIVE: The patient is in bed in no acute distress, nontoxic. PHYSICAL EXAMINATION: VITAL SIGNS: Temperature is 98, blood pressure is 130/70, and respiratory rate of 16. HEENT: Unremarkable. NECK: Supple. LUNGS: Have decreased breath sounds. HEART: Normal S1 and S2. ABDOMEN: Soft and nontender. LABORATORY EXAMINATION: Reveals a white count of 8.6, hemoglobin of 13, platelets of 222. Chemistries reveals a BUN of 19 and creatinine of 0.7. Urinalysis is noted. Serology is noted. Review of orders reveals the patient to be off of antibiotics. ASSESSMENT AND PLAN: He is a 67-year-old male, who was seen earlier today in [facility], bed 2 with history of diabetes, history of paranoid schizophrenia, spinal stenosis, Parkinson's disease, glaucoma, hypertension, and dyslipidemia, admitted with frequency. Urine cultures are negative. Currently, off of antibiotics. The patient's urinary symptoms are not explained by an infection. The patient has 0-2 wbc's and with moderate bacteria and urine cultures negative. Myke Montesinos MD
[2017-07-28] MEDS: BRIMONIDINE 0.2% OU SCH (13:15)
--- NOTE | 2017-07-28 17:25 | PN ---
DATE: SUBJECTIVE: The patient is 67-year-old seen and examined, sitting in chair, seems to be comfortable. He states he wants to go home. He does not want to go for therapy. He states he can take care of himself. He takes care of his brother who is older than him. However, he had multiple falls at night because of Parkinson disease, as he is deconditioning and has unstable gait. PHYSICAL EXAMINATION: GENERAL: He is alert, awake, oriented, and communicative. VITAL SIGNS: Afebrile, pulse 56, respirations 20, and blood pressure 131/71. LUNG: Good air flow. No rhonchi or crackle. HEART: S1 and S2 audible. ABDOMEN: Soft and nontender. No rebound. No guarding. NEUROLOGIC: The patient is awake, alert, oriented, and able to communicate. Walks with a walker. LABORATORY DATA: Blood sugar is 160. ASSESSMENT: 1. Status post fall. 2. Parkinson disease. 3. Hypertension. 4. Deconditioning and difficulty walking. 5. History of paranoid schizophrenia. 6. Noninsulin dependent diabetes. PLAN: We will continue the patient on current medication. Awaiting TCU evaluation and transfer. Continue gait training and physical therapy. Chris Hernandez MD
[2017-07-28] MEDS: Latanoprost 2.5 ml Opht Soln OU SCH (21:20)
[2017-07-29] MEDS: Insulin Reg-LOW-Coverage SC SCH ×2 (07:35→12:39)
[2017-07-29 07:50] VITALS: BP 147/70; RESP 19; TEMP 97.5; O2SAT 95
[2017-07-29] MEDS: [UNRECOGNIZED DRUG - OTHER] PO SCH (08:25)
--- NOTE | 2017-07-29 09:06 | CON ---
DATE: 07/27/2017 ORTHOPEDIC CONSULTATION HISTORY OF PRESENT ILLNESS: This 67-year-old male with low back pain, mostly on the right sacroiliac region, with a trigger point when palpation was performed. He did not want injection when I first saw him and pain is not better, so I took the opportunity to inject him for the sacroiliitis and sacroiliac osteoarthritis seen on the CAT scan; and with the Depo-Medrol and Marcaine, hopefully he will feel better, and need to go for physical therapy with rest pain. He is just going to have to wait until he gets stronger and inflammatory pain goes away, which will be the job of the Depo-Medrol in a few days. Rao Hernandez DO
[2017-07-29 10:28] VITALS: PULSE 72
--- NOTE | 2017-07-29 11:04 | CP.PCM.DIS ---
<Ana Loving - Last Filed: 07/29/17 12:10> Provider - Provider Date of Admission: 07/25/17 07:41 Attending physician: Capo Strauss MD Primary care physician: Kenny Hagan MD Consults: ID = [email or web address] Urol = Mer, E Neuro = Rebeca Orthepedic = Mastromonaco Time Spent in preparation of Discharge (in minutes): 60 Diagnosis - Discharge Diagnosis (1) Intractable low back pain Status: Acute (2) Spinal stenosis Status: Acute (3) Unstable gait Status: Acute (4) Generalized weakness Status: Acute (5) Lumbar disc herniation with radiculopathy Status: Acute (6) UTI (urinary tract infection) Status: Acute Hospital Course - Lab Results Lab Results: Micro Results 07/26/17 21:50 Urine Urine Culture - Final Morg Morganii Ss Morganii 07/25/17 11:51 Urine Urine Culture - Final No Growth (<1,000 CFU/ML) Most Recent Lab Values WBC 8.6 10^3/ul (4.5-11.0) 07/25/17 03:50 RBC 4.54 10^6/uL (3.5-6.1) 07/25/17 03:50 Hgb 13.8 g/dL (14.0-18.0) L 07/25/17 03:50 Hct 40.4 % (42.0-52.0) L 07/25/17 03:50 MCV 89.0 fl (80.0-105.0) 07/25/17 03:50 MCH 30.4 pg (25.0-35.0) 07/25/17 03:50 MCHC 34.2 g/dl (31.0-37.0) 07/25/17 03:50 RDW 12.9 % (11.5-14.5) 07/25/17 03:50 Plt Count 222 10^3/uL (120.0-450.0) 07/25/17 03:50 MPV 10.4 fl (7.0-11.0) 07/25/17 03:50 Gran % 64.2 % (50.0-68.0) 07/25/17 03:50 Lymph % (Auto) 25.4 % (22.0-35.0) 07/25/17 03:50 [place] % (Auto) 7.7 % (1.0-6.0) H 07/25/17 03:50 Eos % (Auto) 2.2 % (1.5-5.0) 07/25/17 03:50 Baso % (Auto) 0.5 % (0.0-3.0) 07/25/17 03:50 Gran # 5.50 (1.4-6.5) 07/25/17 03:50 Lymph # 2.2 (1.2-3.4) 07/25/17 03:50 [place] # 0.7 (0.1-0.6) H 07/25/17 03:50 Eos # 0.2 (0.0-0.7) 07/25/17 03:50 Baso # 0.04 K/mm3 (0.0-2.0) 07/25/17 03:50 PT 12.4 SECONDS (9.4-12.5) 07/25/17 04:27 INR 1.13 (0.93-1.08) H 07/25/17 04:27 APTT 25.5 Seconds (25.1-36.5) 07/25/17 04:27 Sodium 140 mmol/L (132-148) 07/25/17 03:50 Potassium 3.6 mmol/L (3.6-5.0) 07/25/17 03:50 Chloride 104 mmol/L (98-107) 07/25/17 03:50 Carbon Dioxide 25 mmol/L (21-33) 07/25/17 03:50 Anion Gap 15 (10-20) 07/25/17 03:50 BUN 19 mg/dL (7-21) 07/25/17 03:50 Creatinine 0.7 mg/dl (0.8-1.5) L 07/25/17 03:50 Est GFR ( Amer) > 60 07/25/17 03:50 Est GFR (Non-Af Amer) > 60 07/25/17 03:50 POC Glucose (mg/dL) 147 mg/dL (65-110) H 07/29/17 07:26 Random Glucose 146 mg/dL (70-110) H 07/25/17 03:50 Calcium 9.4 mg/dL (8.4-10.5) 07/25/17 03:50 Total Bilirubin 1.6 mg/dL (0.2-1.3) H 07/25/17 03:50 AST 38 U/L (17-59) 07/25/17 03:50 ALT 35 U/L (7-56) 07/25/17 03:50 Alkaline Phosphatase 97 U/L (38-126) 07/25/17 03:50 Total Protein 7.3 g/dL (5.8-8.3) 07/25/17 03:50 Albumin 4.4 g/dL (3.0-4.8) 07/25/17 03:50 Globulin 3.0 gm/dL 07/25/17 03:50 Albumin/Globulin Ratio 1.5 (1.1-1.8) 07/25/17 03:50 Urine Color Yellow (YELLOW) 07/26/17 21:05 Urine Appearance Clear (CLEAR) 07/26/17 21:05 Urine pH 6.5 (4.7-8.0) 07/26/17 21:05 Ur Specific [place] 1.010 (1.005-1.035) 07/26/17 21:05 Urine Protein Negative mg/dL (<30 mg/dL) 07/26/17 21:05 Urine Glucose (UA) Negative mg/dL (NEGATIVE) 07/26/17 21:05 Urine Ketones Negative mg/dL (NEGATIVE) 07/26/17 21:05 Urine Blood Trace-lysed (NEGATIVE) H 07/26/17 21:05 Urine Nitrate Negative (NEGATIVE) 07/26/17 21:05 Urine Bilirubin Negative (NEGATIVE) 07/26/17 21:05 Urine Urobilinogen 0.2 E.U./dL (<1 E.U./dL) 07/26/17 21:05 Ur Leukocyte Esterase Negative My/uL (NEGATIVE) 07/26/17 21:05 Urine RBC 1 - 3 /hpf (0-2) 07/26/17 21:05 Urine WBC 0 - 2 /hpf (0-6) 07/26/17 21:05 Ur Epithelial Cells None /hpf (0-5) 07/26/17 21:05 Amorphous Sediment Few 07/26/17 21:05 Urine Bacteria Mod (NEG) 07/26/17 21:05 RPR Nonreactive (NONREACTIVE) 07/26/17 05:30 HIV 1&2 Ag/Ab, 4th Gen Nonreactive (Nonreactive) 07/26/17 05:30 - Hospital Course Hospital Course: PGY-[address] Strauss 67M with PMH Parkinson, Diabetes, spinal stenosis, Prior Falls, Gait dysfunction , and Paranoid Schizophrenia, admitted for intractable back pain after a fall at home. CT lumbar has ruled out acute fracture. CT showed (+) mild bilateral perinephric stranding, (+) chronic spinal stenosis L3-S1. Abdominal/Pelvis CT without contrast has no acute finding. Pt also reporting excess bladder pressure and difficulty urinating. Urology was consulted to rule out urinary retention. Post void ultrasound showed a large post-void residual volume of 800cc. Pt's prostate gland was enlarged. Pt is to follow up with urologist outpatient. His 2nd urine culture grows Morganella morganii, 10-50K CFU/ml. Pt is currently observed off antibiotics. Pt may be discharged home with cipro. As for the intractable back pain, Orthopedics doctor determined that the lower back pain is mostly on the R sacroiliac region, with a trigger point upon palpation. Pt received Depo-medrol and marcaine injection x 2 with much improvement. Physical therapist recommended pt to subacute rehab but patient refused x several times. Pt had VNA services in past from [facility] and will refer back to them at discharge. Discharge Exam - Head Exam Head Exam: ATRAUMATIC, NORMAL INSPECTION, NORMOCEPHALIC - Eye Exam Eye Exam: EOMI, Normal appearance Pupil Exam: NORMAL ACCOMODATION, PERRL - Neck Exam Additional comments: supple - Respiratory Exam Respiratory Exam: NORMAL BREATHING PATTERN. absent: Rales, Rhonchi, Wheezes - Cardiovascular Exam Cardiovascular Exam: REGULAR RHYTHM - GI/Abdominal Exam GI & Abdominal Exam: Normal Bowel Sounds, Soft. absent: Firm, Guarding - Extremities Exam Extremities exam: pedal pulses present - Neurological Exam Neurological exam: Alert, Oriented x3 - Psychiatric Exam Psychiatric exam: Normal Affect, Normal Mood - Skin Skin Exam: Dry Discharge Plan - Discharge Medications Prescriptions: Atorvastatin [Lipitor] 10 mg PO HS #30 tab Ciprofloxacin [Cipro] 500 mg PO BID #14 tab - Follow Up Plan Condition: STABLE Disposition: HOME/ ROUTINE Instructions: Weakness (GEN), Back Pain (GEN) Additional Instructions: Discharge instructions Finish the whole course of antibiotics - Temporarily hold seroquel while on antibiotics. Contact your psychiatrist if psychiatric or emotional symptoms worsened. Follow up with primary care doctor, Dr. Strauss, in 1-2 weeks Continue home physical therapy Follow up with Dr Lorenzo Del Angel, Urologist in 1-2 weeks Follow up with Dr. Jose, Neurologist in 1-2 weeks Follow up with Dr. Hernandez, orthopedics doctor, in 1- 2 weeks New Med / Med changes Add lipitor Sinemet 25/100 increased to TID Ciprofloxacin for 7 days. Temporarily hold seroquel while on antibiotics Referrals: Capo Strauss MD [Staff Provider] - Kenny Hagan MD [Primary Care Provider] - Cliff Jose MD [Staff Provider] - Rao Hernandez DO [Staff Provider] - Lane Del Angel MD [Staff Provider] - <Capo Strauss - Last Filed: 07/29/17 19:05> Provider - Provider Date of Admission: 07/25/17 07:41 Attending physician: Capo Strauss MD Primary care physician: Kenny Hagan MD Hospital Course - Lab Results Lab Results: Micro Results 07/26/17 21:50 Urine Urine Culture - Final Morg Morganii Ss Morganii 07/25/17 11:51 Urine Urine Culture - Final No Growth (<1,000 CFU/ML) Most Recent Lab Values WBC 8.6 10^3/ul (4.5-11.0) 07/25/17 03:50 RBC 4.54 10^6/uL (3.5-6.1) 07/25/17 03:50 Hgb 13.8 g/dL (14.0-18.0) L 07/25/17 03:50 Hct 40.4 % (42.0-52.0) L 07/25/17 03:50 MCV 89.0 fl (80.0-105.0) 07/25/17 03:50 MCH 30.4 pg (25.0-35.0) 07/25/17 03:50 MCHC 34.2 g/dl (31.0-37.0) 07/25/17 03:50 RDW 12.9 % (11.5-14.5) 07/25/17 03:50 Plt Count 222 10^3/uL (120.0-450.0) 07/25/17 03:50 MPV 10.4 fl (7.0-11.0) 07/25/17 03:50 Gran % 64.2 % (50.0-68.0) 07/25/17 03:50 Lymph % (Auto) 25.4 % (22.0-35.0) 07/25/17 03:50 [place] % (Auto) 7.7 % (1.0-6.0) H 07/25/17 03:50 Eos % (Auto) 2.2 % (1.5-5.0) 07/25/17 03:50 Baso % (Auto) 0.5 % (0.0-3.0) 07/25/17 03:50 Gran # 5.50 (1.4-6.5) 07/25/17 03:50 Lymph # 2.2 (1.2-3.4) 07/25/17 03:50 [place] # 0.7 (0.1-0.6) H 07/25/17 03:50 Eos # 0.2 (0.0-0.7) 07/25/17 03:50 Baso # 0.04 K/mm3 (0.0-2.0) 07/25/17 03:50 PT 12.4 SECONDS (9.4-12.5) 07/25/17 04:27 INR 1.13 (0.93-1.08) H 07/25/17 04:27 APTT 25.5 Seconds (25.1-36.5) 07/25/17 04:27 Sodium 140 mmol/L (132-148) 07/25/17 03:50 Potassium 3.6 mmol/L (3.6-5.0) 07/25/17 03:50 Chloride 104 mmol/L (98-107) 07/25/17 03:50 Carbon Dioxide 25 mmol/L (21-33) 07/25/17 03:50 Anion Gap 15 (10-20) 07/25/17 03:50 BUN 19 mg/dL (7-21) 07/25/17 03:50 Creatinine 0.7 mg/dl (0.8-1.5) L 07/25/17 03:50 Est GFR ( Amer) > 60 07/25/17 03:50 Est GFR (Non-Af Amer) > 60 07/25/17 03:50 POC Glucose (mg/dL) 195 mg/dL (65-110) H 07/29/17 11:38 Random Glucose 146 mg/dL (70-110) H 07/25/17 03:50 Calcium 9.4 mg/dL (8.4-10.5) 07/25/17 03:50 Total Bilirubin 1.6 mg/dL (0.2-1.3) H 07/25/17 03:50 AST 38 U/L (17-59) 07/25/17 03:50 ALT 35 U/L (7-56) 07/25/17 03:50 Alkaline Phosphatase 97 U/L (38-126) 07/25/17 03:50 Total Protein 7.3 g/dL (5.8-8.3) 07/25/17 03:50 Albumin 4.4 g/dL (3.0-4.8) 07/25/17 03:50 Globulin 3.0 gm/dL 07/25/17 03:50 Albumin/Globulin Ratio 1.5 (1.1-1.8) 07/25/17 03:50 Urine Color Yellow (YELLOW) 07/26/17 21:05 Urine Appearance Clear (CLEAR) 07/26/17 21:05 Urine pH 6.5 (4.7-8.0) 07/26/17 21:05 Ur Specific [place] 1.010 (1.005-1.035) 07/26/17 21:05 Urine Protein Negative mg/dL (<30 mg/dL) 07/26/17 21:05 Urine Glucose (UA) Negative mg/dL (NEGATIVE) 07/26/17 21:05 Urine Ketones Negative mg/dL (NEGATIVE) 07/26/17 21:05 Urine Blood Trace-lysed (NEGATIVE) H 07/26/17 21:05 Urine Nitrate Negative (NEGATIVE) 07/26/17 21:05 Urine Bilirubin Negative (NEGATIVE) 07/26/17 21:05 Urine Urobilinogen 0.2 E.U./dL (<1 E.U./dL) 07/26/17 21:05 Ur Leukocyte Esterase Negative My/uL (NEGATIVE) 07/26/17 21:05 Urine RBC 1 - 3 /hpf (0-2) 07/26/17 21:05 Urine WBC 0 - 2 /hpf (0-6) 07/26/17 21:05 Ur Epithelial Cells None /hpf (0-5) 07/26/17 21:05 Amorphous Sediment Few 07/26/17 21:05 Urine Bacteria Mod (NEG) 07/26/17 21:05 RPR Nonreactive (NONREACTIVE) 07/26/17 05:30 HIV 1&2 Ag/Ab, 4th Gen Nonreactive (Nonreactive) 07/26/17 05:30 - Hospital Course Hospital Course: Pt seen and examined.Pain under control. Pt is able to tolerate PO diet. Pt's labs and vitals have been reviewed. I agree with the medical affairs director note. The pt does not wish to go to [facility]. He wants to go home. I spoke to the pt's brother and he agrees to have him come home.
[2017-07-29] MEDS: BRIMONIDINE 0.2% OU SCH (11:10)
--- NOTE | 2017-07-29 15:03 | PN ---
DATE: 07/29/2017 SUBJECTIVE: The patient is seen in bed, in no acute distress early this morning in 369, bed 2. No fevers. No chills. No nausea. PHYSICAL EXAMINATION: VITAL SIGNS: Temperature is 98, blood pressure is 120/70, and respiratory rate of 16. HEENT: Unremarkable. NECK: Supple. LUNGS: Decreased breath sounds. HEART: Normal S1 and S2. ABDOMEN: Soft and nontender. LABORATORY DATA: Reveals white count of 8.6. Chemistries are noted. Serology is noted. HIV is negative RPR is nonreactive and FTA is pending. Urinalysis is reviewed. Microbiology reveals Morganella morganii and repeat urine culture from the th, which is sensitive to Cipro and ceftriaxone. ASSESSMENT AND PLAN: A 67-year-old male was seen earlier today with diabetes, history of paranoid schizophrenia, spinal stenosis, Parkinson's disease, glaucoma, hypertension, and dyslipidemia, with repeat culture Morganella morganii, also urinalysis is unremarkable, the patient still has symptoms, may switch to p.o. antibiotics. We will follow closely with you. Myke Montesinos MD
== END 2017-07-29 15:00 | disposition home or self-care (01) | DRG 552 ==
LOC: ED 03:07 → ERH 06:08 → OBSVTOIN 07:41 → 3RNO 08:11
PROVIDERS: ADMIT Internal Medicine Nephrology; ATTEND Internal Medicine Nephrology
PROC: 3E0U33Z Introduction of Anti-inflammatory into Joints, Percutaneous Approach (ICD-10-PCS; principal; 2017-07-27)
PROC: 3E0U3BZ Introduction of Anesthetic Agent into Joints, Percutaneous Approach (ICD-10-PCS; 2017-07-27)
DX: M48.061 Spinal stenosis, lumbar region without neurogenic claudication (principal); F20.0 Paranoid schizophrenia; G20 Parkinson's disease; N39.0 Urinary tract infection, site not specified; W19.XXXA Unspecified fall, initial encounter; E11.9 Type 2 diabetes mellitus without complications; G89.29 Other chronic pain; E78.5 Hyperlipidemia, unspecified; I10 Essential (primary) hypertension; H40.9 Unspecified glaucoma; M51.16 Intervertebral disc disorders with radiculopathy, lumbar region; Y92.009 Unspecified place in unspecified non-institutional (private) residence as the place of occurrence of the external cause; Z79.84 Long term (current) use of oral hypoglycemic drugs; Z79.899 Other long term (current) drug therapy; Z82.49 Family history of ischemic heart disease and other diseases of the circulatory system; Z83.3 Family history of diabetes mellitus; Z87.891 Personal history of nicotine dependence; Z91.81 History of falling; R26.2 Difficulty in walking, not elsewhere classified; Z87.81 Personal history of (healed) traumatic fracture; S33.6XXA Sprain of sacroiliac joint, initial encounter; M47.9 Spondylosis, unspecified; F41.9 Anxiety disorder, unspecified; K46.9 Unspecified abdominal hernia without obstruction or gangrene

== ENCOUNTER 2017-10-26 11:04 | Inpatient (IN) | payer BC, MEDICARE ==
--- NOTE | 2017-10-26 11:46 | ED PDOC ---
Arrival/HPI - General Chief Complaint: Weakness/Neurological Deficit Time Seen by Provider: 10/26/17 11:22 Historian: Patient - History of Present Illness Narrative History of Present Illness (Text): 10/26/17 11:45 67 year old male, whose past medical history includes hypertension, Parkinson's disease, spinal stenosis, abdominal hernia surgery, and schitzophrenia, who presents to the emergency room complaining of right shoulder pain s/p fall. Patient got out of his wheelchair to get into bed with the use of his walker and slipped. Patient denies any fever, chills, chest pain, shortness of breath, nausea, vomiting, diarrhea, back pain, neck pain, headache, dizziness, or any other complaints. Time/Duration: Prior to Arrival Symptom Onset: Gradual Symptom Course: Unchanged Activities at Onset: Significant (fall) Context: Home Past Medical History - Provider Review Nursing Documentation Reviewed: Yes - Infectious Disease Hx of Infectious Diseases: None - Tetanus Immunization Tetanus Immunization: Unknown - Cardiac Hx Cardiac Disorders: Yes Hx Hypertension: Yes - Pulmonary Hx Respiratory Disorders: No (SMOKED CIGARETTES PPD QUIT 5 YRS AGO) - Neurological Hx Neurological Disorder: Yes Hx Parkinson's Disease: Yes (hand tremors at times/dx 2 1/2 yrs ago) - HEENT Hx HEENT Disorder: Yes (eyeglasses) Hx Glaucoma: Yes - Renal Hx Renal Disorder: No - Endocrine/Metabolic Hx Diabetes Mellitus Type 2: Yes - Hematological/Oncological Hx Blood Disorders: No - Integumentary Hx Dermatological Disorder: Yes Other/Comment: bruises to knees - Musculoskeletal/Rheumatological Hx Falls: Yes (recent frequent) - Gastrointestinal Hx Gastrointestinal Disorders: No - Genitourinary/Gynecological Hx Genitourinary Disorders: No - Psychiatric Hx Psychophysiologic Disorder: No (SMOKED CIGARETTES PPD QUIT, 5 yrs ago) Hx Depression: No Hx Emotional Abuse: No Hx Physical Abuse: No Hx Substance Use: No - Surgical History Other/Comment: Hernia Repair umbilical, ?stomach sx thicks he had obstruction not sure, - Anesthesia Hx Anesthesia: No Hx Anesthesia Reactions: No Hx Malignant Hyperthermia: No - Suicidal Assessment Feels Threatened In Home Enviroment: No Family/Social History - Physician Review Nursing Documentation Reviewed: Yes Family/Social History: Unknown Family HX Smoking Status: Never Smoked Hx Alcohol Use: No Hx Substance Use: No Hx Substance Use Treatment: No Allergies/Home Meds Allergies/Adverse Reactions: Allergies No Known Allergies Allergy (Verified 10/26/17 11:13) Home Medications: Home Meds Medication Instructions Recorded Confirmed Bimatoprost [Lumigan] 1 drop OU DAILY 04/28/14 07/25/17 Ramipril [Altace] 10 mg PO DAILY 04/28/14 07/25/17 Esomeprazole Magnesium [Nexium] 40 mg PO DAILY 02/04/16 07/25/17 amLODIPine [Norvasc] 5 mg PO DAILY 02/04/16 07/25/17 Brimonidine 0.2% [Alphagan 0.2% 1 drop OU BID 03/12/16 07/25/17 Opht] metFORMIN [glucOPHAGE] 500 mg PO DAILY 03/12/16 07/25/17 Tramadol HCl [Ultram] 50 mg PO BID 11/07/16 07/25/17 Review of Systems - Physician Review All systems were reviewed & negative as marked: Yes - Review of Systems Constitutional: Normal Eyes: Normal ENT: Normal Respiratory: Normal. absent: SOB, Cough Cardiovascular: Normal. absent: Chest Pain, Palpitations Gastrointestinal: Normal. absent: Abdominal Pain, Diarrhea, Nausea, Vomiting Genitourinary Male: Normal. absent: Dysuria, Frequency, Hematuria, Urinary Output Changes Musculoskeletal: Other (Right shoulder pain). absent: Back Pain, Neck Pain Skin: Normal. absent: Rash Neurological: Normal. absent: Headache, Dizziness Endocrine: Normal Hemo/Lymphatic: Normal Psychiatric: Normal Physical Exam Vital Signs Reviewed: Yes Vital Signs Temp Pulse Resp BP Pulse Ox 10/26/17 15:22 72 18 160/81 H 97 10/26/17 12:00 64 18 158/68 H 98 10/26/17 11:13 97.9 F 68 18 164/70 H 98 Temperature: Afebrile Blood Pressure: Hypertensive Pulse: Regular Respiratory Rate: Normal Appearance: Positive for: Well-Appearing, Non-Toxic, Comfortable Pain Distress: None Mental Status: Positive for: Alert and Oriented X 3 - Systems Exam Head: Present: Atraumatic, Normocephalic Pupils: Present: PERRL Extroacular Muscles: Present: EOMI Conjunctiva: Present: Normal Mouth: Present: Moist Mucous Membranes Neck: Present: Normal Range of Motion Respiratory/Chest: Present: Clear to Auscultation, Good Air Exchange. No: Respiratory Distress, Accessory Muscle Use Cardiovascular: Present: Regular Rate and Rhythm, Normal S1, S2. No: Murmurs Abdomen: Present: Normal Bowel Sounds. No: Tenderness, Distention, Peritoneal Signs Back: Present: Normal Inspection Upper Extremity: Present: Normal ROM, NORMAL PULSES, Neurovascularly Intact, Other (Right shoulder pain with movement). No: Cyanosis, Edema, Tenderness, Swelling Lower Extremity: Present: Normal Inspection. No: Edema Neurological: Present: GCS=15, CN II-XII Intact, Speech Normal Skin: Present: Warm, Dry, Normal Color. No: Rashes Psychiatric: Present: Alert, Oriented x 3, Normal Insight, Normal Concentration Medical Decision Making ED Course and Treatment: 10/26/17 11:46 Impression: 67 year old male who presents to the emergency room complaining of right shoulder pain s/p fall. Differential Diagnosis included but are not limited to: Shoulder Pain s/p fall r /o fracture Plan: -- Xray Right shoulder -- Tylenol -- Reassess and disposition Prior Visits: Notes and results from previous visits were reviewed. Patient visited the emergency room on 07/25/2017 for back pain. Pt was admitted to the hospital for observation. Progress Notes: 10/26/17 13:20 Patient and brother state that patient cannot walk well and it's only getting worse this week. He can't bath himself anymore either. It seems like activity of daily living is decreasing. He does not have a Visiting Nurse Service. Blood ordered for admission. There is a strong risk for fall and patient does not have a support system at home that can assist in his daily activities. His brother cannot do this. 10/26/17 15:[address] Strauss who will accept the patient to his service. He recommends full admission. 10/26/17 16:25 Patient's chemistry resulted. Patient cleared for admission. - Lab Interpretations Lab Results: 10/26/17 15:00 10/26/17 15:00 Lab Results 10/26/17 15:00: Sodium 141, Potassium 3.9, Chloride 102, Carbon Dioxide 27, Anion Gap Pending, BUN 17, Creatinine 0.7 L, Est GFR ( Amer) > 60, Est GFR (Non-Af Amer) > 60, Random Glucose 145 H, Calcium 10.1, Magnesium 2.0 10/26/17 15:00: WBC 9.2, RBC 4.41, Hgb 13.5 L, Hct 38.7 L, MCV 87.8, MCH 30.6, MCHC 34.9, RDW 12.7, Plt Count 224, MPV 9.9, Gran % 73.2 H, Lymph % (Auto) 18.7 L, [place] % (Auto) 6.3 H, Eos % (Auto) 1.5, Baso % (Auto) 0.3, Gran # 6.76 H, Lymph # (Auto) 1.7, [place] # (Auto) 0.6, Eos # (Auto) 0.1, Baso # (Auto) 0.03 I have reviewed the lab results: Yes Interpretation: All labs normal - RAD Interpretation Radiology Orders: 10/26/17 11:36 SHOULDER RIGHT [RAD] Stat Shoulder xray normal; no fx Toe Puncher: ED Physician - Medication Orders Current Medication Orders: Discontinued Medications Acetaminophen (Tylenol 325mg Tab) 975 mg PO STAT STA Stop: 10/26/17 11:37 Last Admin: 10/26/17 12:08 Dose: 975 mg - Scribe Statement The provider has reviewed the documentation as recorded by the Scribe Documented by Maria Del Rosario Tejead acting as a scribe for Carlos Hansen DO. Disposition/Present on Arrival - Present on Arrival Any Indicators Present on Arrival: No History of DVT/PE: No History of Uncontrolled Diabetes: No Urinary Catheter: No History of Decub. Ulcer: No History Surgical Site Infection Following: None - Disposition Have Diagnosis and Disposition been Completed?: Yes Diagnosis: Unstable gait Disposition: HOSPITALIZED Disposition Time: 15:50 Patient Plan: Admission Condition: FAIR
[2017-10-26 15:12] LABS: BASO # 0.03 K/mm3 (0.0-2.0); BASO % 0.3 % (0.0-3.0); EOS # 0.1 (0.0-0.7); EOS % 1.5 % (1.5-5.0); GRAN # 6.76 (1.4-6.5); GRAN % 73.2 % (50.0-68.0); HEMOGLOBIN 13.5 g/dL (14.0-18.0); LYMPH # 1.7 (1.2-3.4); LYMPH % 18.7 % (22.0-35.0); MEAN CELL VOLUME 87.8 fl (80.0-105.0); MEAN CORPUSCULAR HEMOGLOBIN 30.6 pg (25.0-35.0); MEAN CORPUSCULAR HGB CONC 34.9 g/dl (31.0-37.0); MEAN PLATELET VOLUME 9.9 fl (7.0-11.0); MONO # 0.6 (0.1-0.6); MONO % 6.3 % (1.0-6.0); RBC 4.41 10^6/uL (3.5-6.1); RED CELL DISTRIBUTION WIDTH 12.7 % (11.5-14.5); WHITE BLOOD COUNT 9.2 10^3/ul (4.5-11.0)
[2017-10-26 16:24] LABS: BLOOD UREA NITROGEN 17 mg/dL (7-21); CALCIUM 10.1 mg/dL (8.4-10.5); GFR AFRICAN-AMERICAN > 60; GFR NON-AFRICAN AMERICAN > 60
--- NOTE | 2017-10-26 18:58 | RAD ---
PROCEDURE: Radiographs of the Right Shoulder HISTORY: fall r/o fx COMPARISON: No prior. FINDINGS: BONES: Normal. No fracture. JOINTS: Osteoarthritic degenerative changes are noted at the right shoulder joints. SOFT TISSUES: Normal. OTHER FINDINGS: None. IMPRESSION: No evidence of acute fracture or dislocation.
[2017-10-26 21:59] VITALS: BMI 28.5
[2017-10-26] MEDS ORDERED: Influenza Vaccine 60 mcg/0.5 mL SYR (4YR UP) IM ONE (21:59)
[2017-10-26] MEDS ORDERED: Pneumococcal 23-Valent Vaccine IM ONE (21:59)
[2017-10-26] MEDS: Latanoprost 2.5 ml Opht Soln OU SCH (23:22)
[2017-10-27] MEDS: ALPHAGAN 0.2% OU SCH ×2 (09:42→17:34)
[2017-10-27] MEDS: Insulin Reg-LOW-Coverage SC SCH (16:11)
--- NOTE | 2017-10-27 22:10 | HP ---
CHIEF COMPLAINT AND HISTORY OF PRESENT ILLNESS: This is a 67-year-old male who is coming into the hospital because of difficulty in ambulating. The patient had a fall at home. He has a past medical history of Parkinson's and chronic back pain secondary to disk herniation. He also has paranoid schizophrenia, has been stable. He lives with his brother who has been managing him. The patient states that he was not able to walk and had a fall. He denies any chest pain. No shortness of breath. No nausea. No vomiting. No dysuria or frequency. No weakness in the arms and the legs. He does have a history of spinal stenosis as well. He has been having falls at home. He has been advised in the past to go to subacute rehab, but he has refused. He is more willing to go at this point. ALLERGIES: NO KNOWN DRUG ALLERGIES. MEDICATIONS: Home medications has been reviewed on the [facility]. PAST MEDICAL HISTORY: Hypertension, dyslipidemia, diabetes type 2, glaucoma, Parkinson's, femur fracture, L4-L5 disk herniation, paranoid schizophrenia. SOCIAL HISTORY: He is a former smoker, but has quit many years ago. He denies alcohol or drug use. He lives with his brother. FAMILY HISTORY: He has a history of diabetes and hypertension in the family. PHYSICAL EXAMINATION: VITAL SIGNS: Temperature is 97.5, pulse 57, blood pressure 156/79, respirations 20, O2 saturation 97%. Height is 5 feet 7 inches, weight is 182 pounds. BMI is 28.5. GENERAL: The patient lying in bed, uncomfortable, and in no acute distress. HEENT: Atraumatic and normocephalic. Anicteric sclerae. Moist mucosa. Porcupine conjunctivae. No oral lesions. NECK: No JVD, anterior and posterior adenopathy, thyromegaly, or bruits. CARDIOVASCULAR: S1 and S2 regular. No murmur, rubs, or gallop. LUNGS: Clear to auscultation bilaterally. No wheezes, rales, or rhonchi. ABDOMEN: Bowel sounds are positive. Soft, nontender and nondistended. No hepatosplenomegaly. No rebound and no guarding EXTREMITIES: No cyanosis, clubbing, or edema. NEUROLOGIC: No facial asymmetry. Tongue is midline. No uvula deviation. Power is 5/5 upper extremity. In the lower extremity, 4 to 5/5 power. Sensation intact in upper extremity and lower extremity. PSYCHIATRIC: He is awake, alert and oriented x3. No anxiety or depression. He has normal affect. GENITOURINARY: No CVA tenderness. VASCULAR: 2+ pulses in the carotid pulses and pedal pulses. SKIN: No erythema or nodules SPINE: Shows normal curvature. LABORATORY DATA: White count is 9.2, hemoglobin 13.5. Sodium is 141, potassium 3.9, creatinine is 0.7. All other labs have been reviewed. DIAGNOSTIC DATA: Shoulder x-ray shows no evidence of fracture on the right shoulder. ASSESSMENT: 1. Fall. 2. Gait dysfunction. 3. Spinal stenosis with chronic back pain secondary to L4-L5 disk herniation. 4. Diabetes type 2. 5. Parkinson's. 6. Hypertension. 7. Dyslipidemia. 8. Paranoid schizophrenia. 9. Glaucoma. PLAN: The patient is going to be brought in for further evaluation. He is not able to ambulate. I will place him on his tramadol for pain. He is going to continue with Sinemet for his Parkinson's. The patient is going to continue with metformin for his diabetes. He is going to be on Artane. He is going to continue with Altace for his hypertension. He is on a carbohydrate consistent diet. We will speak to his brother to keep an update. The patient is agreeable for subacute rehab. He does not wish to go to [facility] as he had a bad experience. Cpao Strauss MD
[2017-10-27] MEDS: Latanoprost 2.5 ml Opht Soln OU SCH (22:43)
[2017-10-28] MEDS: Insulin Reg-LOW-Coverage SC SCH ×2 (07:49→17:02)
[2017-10-28 08:12] VITALS: RESP 18
[2017-10-28 09:06] LABS: URINE BILIRUBIN NEGATIVE (NEGATIVE); URINE BLOOD NEGATIVE (NEGATIVE); URINE GLUCOSE (UA) NEGATIVE (NEGATIVE); URINE LEUKOCYTE ESTERASE NEGATIVE Leu/uL (NEGATIVE); URINE PROTEIN NEGATIVE mg/dL (<30 mg/dL); URINE UROBILINOGEN 0.2 E.U./dL (<1 E.U./dL)
[2017-10-28 09:07] LABS: URINE APPEARANCE CLEAR (CLEAR); URINE COLOR YELLOW (YELLOW)
[2017-10-28] MEDS: ALPHAGAN 0.2% OU SCH ×2 (12:14→19:02)
--- NOTE | 2017-10-28 13:03 | PN ---
DATE: SUBJECTIVE: The patient has no complaints of any chest pain. No shortness of breath. No headaches or dizziness. PHYSICAL EXAMINATION VITAL SIGNS: Temperature is 97.8, pulse is 64, blood pressure is 164/86, and respirations are 18, O2 saturation 97%. GENERAL: The patient is lying in bed, flat, comfortable. HEENT: No oral lesion. Anicteric sclerae. Moist mucosa. NECK: No JVD, adenopathy, or thyromegaly. CARDIOVASCULAR: S1 and S2, regular. No murmurs, rubs, or gallops. LUNGS: Clear to auscultation bilaterally. No wheeze, rales, or rhonchi. ABDOMEN: Bowel sounds are positive. Soft, nontender and nondistended. EXTREMITIES: No cyanosis, clubbing or edema. ASSESSMENT 1. Fall. 2. Gait dysfunction. 3. Spinal stenosis with chronic back pain secondary to L4-L5 disk herniation. 4. Diabetes type 2. 5. Parkinson's. 6. Hypertension. 7. Dyslipidemia. 8. Paranoid schizophrenia, stable. 9. Glaucoma. PLAN: The patient is currently comfortable. He is not able to ambulate. He is at risk of having more falls and hurting himself at home. The patient is on metformin for his diabetes type 2. He is on Seroquel, he is on low dose. The patient's brother stated that he is on 25 mg 3 times a day. I will place him on that. The patient is on Ultram for pain. He is going to continue with his Xalatan. He is on carbohydrate consistent diet. He is interested in going to [facility] for rehab. We will try to arrange that for the patient. Capo Strauss MD
[2017-10-28] MEDS: Latanoprost 2.5 ml Opht Soln OU SCH (21:01)
[2017-10-29] MEDS: Insulin Reg-LOW-Coverage SC SCH (07:48)
[2017-10-29 09:29] VITALS: BP 144/75; PULSE 55; TEMP 97.8; O2SAT 97
[2017-10-29] MEDS: ALPHAGAN 0.2% OU SCH (11:05)
--- NOTE | 2017-10-29 11:31 | PN ---
DATE: 10/29/2017 SUBJECTIVE: The patient was initially admitted to the hospital because of difficulty in walking. He was having falls and the patient's brother is the primary caregiver. any difficulty in managing the patient at home. He has agreed to go to subacute rehab, [facility]. The patient has no complaints of any chest pain. No shortness of breath, no headaches. PHYSICAL EXAMINATION: VITAL SIGNS: Temperature is 97.4, pulse is 71, blood pressure is 101/62, respirations 18. GENERAL: The patient is lying in bed, flat, comfortable. HEENT: No oral lesion. Anicteric sclerae. Moist mucosa. NECK: No JVD, adenopathy, or thyromegaly. CARDIOVASCULAR: S1 and S2, regular. No murmurs, rubs, or gallops. LUNGS: Clear to auscultation bilaterally. No wheeze, rales, or rhonchi. ABDOMEN: Bowel sounds are positive. Soft, nontender and nondistended. EXTREMITIES: No cyanosis, clubbing or edema. LABORATORY DATA: White count of 9.2, hemoglobin 13.5, creatinine 0.7. ASSESSMENT 1. Fall. 2. Gait dysfunction. 3. Spinal stenosis with chronic back pain secondary to L4-L5 disk herniation. 4. Diabetes type 2. 5. Parkinson's. 6. Hypertension. 7. Dyslipidemia. 8. Paranoid schizophrenia. 9. Glaucoma. PLAN: The patient is currently comfortable. He is on Altace for his hypertension. He is going to continue with metformin for his diabetes. The patient is on Seroquel. He is on carbidopa and levodopa for his Parkinson's. The patient is on eyedrops with latanoprost. He is on a carbohydrate consistent diet. He is receiving insulin coverage and fingersticks will be done. I did speak to the patient's brother yesterday to give him an update on the patient's diagnosis and plan of care He agrees to [place]. I spoke with the social work nurse and case monitor yesterday. CONDITION: Stable. ACTIVITIES: Increase as tolerated. Capo Strauss MD [facility] # [id number]
== END 2017-10-29 15:15 | DRG 556 ==
LOC: ED 11:04 → ERH 15:53 → 5RNO 17:28
PROVIDERS: ADMIT Internal Medicine Nephrology; ATTEND Internal Medicine Nephrology
DX: R26.2 Difficulty in walking, not elsewhere classified (principal); F20.0 Paranoid schizophrenia; G20 Parkinson's disease; M51.26 Other intervertebral disc displacement, lumbar region; I10 Essential (primary) hypertension; H40.9 Unspecified glaucoma; E78.5 Hyperlipidemia, unspecified; E11.9 Type 2 diabetes mellitus without complications; M48.061 Spinal stenosis, lumbar region without neurogenic claudication; Z79.84 Long term (current) use of oral hypoglycemic drugs; Z87.891 Personal history of nicotine dependence

== ENCOUNTER 2018-11-19 09:52 | Emergency (ER) | payer MEDICARE ==
[2018-11-19 10:00] VITALS: BMI 28.6
[2018-11-19 10:06] VITALS: RESP 18
--- NOTE | 2018-11-19 10:21 | ED PDOC ---
Arrival/HPI - General Chief Complaint: Flu-like Symptoms Time Seen by Provider: 11/19/18 10:09 Historian: Patient - History of Present Illness Narrative History of Present Illness (Text): 11/19/18 10:12 68 y/o male, pmh including htn/hld/dm/glaucoma/femur fracture/parkinson disease, nkda, c/o runny nose/cough/fatigue/fever x 2 days. Pt. stated that he has runny nose/cough/fatigue/fever x 2 days, feels like flu like symptoms, no chest pain or shortness of breath, no night sweat, no dizziness, no change in vision, no other medical or psychological complaints. Past Medical History - Provider Review Nursing Documentation Reviewed: Yes - Infectious Disease Hx of Infectious Diseases: None - Tetanus Immunization Tetanus Immunization: Unknown - Cardiac Hx Cardiac Disorders: Yes Hx Hypertension: Yes - Pulmonary Hx Respiratory Disorders: Yes (SMOKED CIGARETTES PPD QUIT 5 YRS AGO) - Neurological Hx Neurological Disorder: Yes Hx Parkinson's Disease: Yes (hand tremors at times/dx 2 1/2 yrs ago) - HEENT Hx HEENT Disorder: Yes (eyeglasses) Hx Glaucoma: Yes - Renal Hx Renal Disorder: No - Endocrine/Metabolic Hx Diabetes Mellitus Type 2: Yes - Hematological/Oncological Hx Blood Disorders: No - Integumentary Hx Dermatological Disorder: Yes Other/Comment: bruises to knees - Musculoskeletal/Rheumatological Hx Musculoskeletal Disorders: Yes Hx Falls: Yes (recent frequent) Hx Unsteady Gait: Yes (WALKER) - Gastrointestinal Hx Gastrointestinal Disorders: No - Genitourinary/Gynecological Hx Genitourinary Disorders: Yes Hx Incontinence: Yes - Psychiatric Hx Psychophysiologic Disorder: Yes (SMOKED CIGARETTES PPD QUIT, 5 yrs ago) Hx Anxiety: Yes Hx Depression: No Hx Emotional Abuse: No Hx Physical Abuse: No Hx Schizophrenia: Yes Hx Substance Use: No - Surgical History Other/Comment: Hernia Repair umbilical, ?stomach sx thinks he had obstruction not sure, - Anesthesia Hx Anesthesia: No Hx Anesthesia Reactions: No Hx Malignant Hyperthermia: No - Suicidal Assessment Feels Threatened In Home Enviroment: No Family/Social History - Physician Review Nursing Documentation Reviewed: Yes Family/Social History: Unknown Family HX Smoking Status: Former Smoker Hx Alcohol Use: No Hx Substance Use: No Hx Substance Use Treatment: No Allergies/Home Meds Allergies/Adverse Reactions: Allergies No Known Allergies Allergy (Verified 11/19/18 10:06) Home Medications: Home Meds Medication Instructions Recorded Confirmed Tramadol HCl [Ultram] 50 mg PO BID 11/07/16 10/26/17 Review of Systems - Review of Systems Constitutional: Fatigue, Fevers Eyes: absent: Vision Changes ENT: Sore Throat, Rhinorrhea. absent: Hearing Changes Respiratory: Cough, Sputum. absent: SOB, Wheezing Cardiovascular: absent: Chest Pain Gastrointestinal: absent: Abdominal Pain, Diarrhea, Nausea, Vomiting Skin: absent: Rash, Pruritis Neurological: absent: Headache, Dizziness Endocrine: absent: Diaphoresis Psychiatric: absent: Anxiety, Depression, Suicidal Ideation Physical Exam Vital Signs Reviewed: Yes Vital Signs Temp Pulse Resp BP Pulse Ox 11/19/18 10:00 98.2 F 85 18 160/72 H 100 Temperature: Afebrile Blood Pressure: Hypertensive Pulse: Regular Respiratory Rate: Normal Appearance: Positive for: Well-Appearing, Non-Toxic, Comfortable Pain Distress: Mild Mental Status: Positive for: Alert and Oriented X 3 - Systems Exam Head: Present: Atraumatic, Normocephalic Pupils: Present: PERRL Extroacular Muscles: Present: EOMI Conjunctiva: Present: Normal Ears: Present: NORMAL TM, Normal Canal. No: Erythema Mouth: Present: Moist Mucous Membranes Pharnyx: No: ERYTHEMA, EXUDATE, TONSILS ENLARGED, Peritonsilar Swelling, Uvular Deviation, Muffled/Hoarse Voice, Strider Nose (External): Present: Atraumatic. No: Abrasion, Contusion, Laceration, Lesions Nose (Internal): Present: Normal Inspection, No Active Bleeding, Rhinorrhea. No: Purulent Mucous, Septal Deviation, Septal Hematoma, Epistaxis, Other Neck: Present: Normal Range of Motion, Trachea Midline. No: Meningeal Signs, MIDLINE TENDERNESS, Paraspinal Tenderness, Lymphadenopathy Respiratory/Chest: Present: Clear to Auscultation, Good Air Exchange. No: Respiratory Distress, Accessory Muscle Use, Wheezes, Decreased Breath Sounds, Rales, Retracting, Rhonchi, Tachypneic, Tender to Palpation Cardiovascular: Present: Regular Rate and Rhythm, Normal S1, S2. No: Murmurs Abdomen: No: Tenderness, Distention, Peritoneal Signs, Rebound, Guarding Back: Present: Normal Inspection. No: CVA Tenderness, Midline Tenderness Upper Extremity: Present: Normal Inspection, Normal ROM, NORMAL PULSES, Neurovascularly Intact. No: Cyanosis, Edema, Tenderness, Swelling, Deformity Lower Extremity: Present: Normal Inspection, NORMAL PULSES, Normal ROM, Neurovascularly Intact, Capillary Refill < 2 s. No: Edema, Tenderness, Swelling, Deformity Neurological: Present: GCS=15, CN II-XII Intact, Speech Normal, Motor Func Grossly Intact, Normal Cerebellar Funct, Gait Normal, Memory Normal Skin: Present: Warm, Dry, Normal Color. No: Rashes Psychiatric: Present: Alert, Oriented x 3, Normal Insight, Normal Concentration Medical Decision Making ED Course and Treatment: 11/19/18 10:32 -Labs -Chest xray -Tylenol and IVF -Observe and reassess 11/19/18 13:14 -Rapid flu is negative but moderate to high suspicious, tamiflu ordered -Labs show no acute findings, no elevation of wbc -UA show no UTI -Chest xray ER wet read show no active disease. -Pt. feels well after tylenol and fluid, offered observation for admission but he refused. Pt. wanna be discharged home and not be admitted. -Discharge home with tamiflu, bromfed dm, tylenol, bed rest, follow up with your own pmd within 2 days, return to the ER for any new or worsening signs or symptoms. - RAD Interpretation Radiology Orders: Date of service: 11/19/2018 HISTORY: cough/fever/flu like symptomes COMPARISON: 12/07/2016 FINDINGS: LUNGS: No active pulmonary disease. PLEURA: No significant pleural effusion identified, no pneumothorax apparent. CARDIOVASCULAR: No radiographic findings to suggest acute or significant cardiovascular disease. Atherosclerotic calcifications identified primarily aortic arch. OSSEOUS STRUCTURES: No significant abnormalities. VISUALIZED UPPER ABDOMEN: Normal. OTHER FINDINGS: None. IMPRESSION: No active disease. No significant interval change compared to the prior examination(s). Concordant results with the preliminary interpretation rendered by the emergency department physician\PA at the conclusion of the procedure. Wire Coiler Machine Operator: Radiologist - PA / COMMUNICATIONS WRITER / Resident Statement MD/DO has reviewed & agrees with the documentation as recorded. Disposition/Present on Arrival - Present on Arrival Any Indicators Present on Arrival: No History of DVT/PE: No History of Uncontrolled Diabetes: No Urinary Catheter: No History of Decub. Ulcer: No History Surgical Site Infection Following: None - Disposition Have Diagnosis and Disposition been Completed?: Yes Diagnosis: URI (upper respiratory infection), Flu-like symptoms Disposition: HOME/ ROUTINE Disposition Time: 13:15 Patient Plan: Discharge Condition: IMPROVED Additional Instructions: -Discharge home with tamiflu, bromfed dm, tylenol, bed rest, follow up with your own pmd within 2 days, return to the ER for any new or worsening signs or sym ptoms. Prescriptions: Acetaminophen [Tylenol] 2 cap PO QID PRN #30 capsule PRN Reason: Other Brompheniramine/Pseudoephed/Dm [Bromfed Dm Cough 118 ml] 10 ml PO QID PRN #250 ml PRN Reason: Other Oseltamivir Phosphate [Tamiflu] 75 mg PO BID #10 capsule Referrals: Jovi Staples DO [Family Provider] - Follow up with primary Forms: [facility] (Croatian), WORK NOTE
[2018-11-19] MEDS ORDERED: Sodium Chloride 0.9% 1,000 ML IV SCH (10:45)
--- NOTE | 2018-11-19 11:12 | RAD ---
Date of service: 11/19/2018 HISTORY: cough/fever/flu like symptomes COMPARISON: 12/07/2016 FINDINGS: LUNGS: No active pulmonary disease. PLEURA: No significant pleural effusion identified, no pneumothorax apparent. CARDIOVASCULAR: No radiographic findings to suggest acute or significant cardiovascular disease. Atherosclerotic calcifications identified primarily aortic arch. OSSEOUS STRUCTURES: No significant abnormalities. VISUALIZED UPPER ABDOMEN: Normal. OTHER FINDINGS: None. IMPRESSION: No active disease. No significant interval change compared to the prior examination(s). Concordant results with the preliminary interpretation rendered by the emergency department physician procedure.
[2018-11-19 11:24] LABS: ALB/GLOB RATIO 1.4 (1.1-1.8); ALBUMIN 4.6 g/dL (3.0-4.8); ALT/SGPT 11 U/L (7-56); AST/SGOT 50 U/L (17-59); BLOOD UREA NITROGEN 18 mg/dL (7-21); CALCIUM 9.3 mg/dL (8.4-10.5); GFR NON-AFRICAN AMERICAN > 60
[2018-11-19 11:29] LABS: BASO # 0.04 K/mm3 (0.0-2.0); BASO % 0.6 % (0.0-3.0); EOS # 0.2 (0.0-0.7); EOS % 2.8 % (1.5-5.0); HEMOGLOBIN 13.2 g/dL (14.0-18.0); LYMPH # 0.8 (1.2-3.4); LYMPH % 11.5 % (22.0-35.0); MEAN CELL VOLUME 91.1 fl (80.0-105.0); MEAN CORPUSCULAR HEMOGLOBIN 29.5 pg (25.0-35.0); MEAN CORPUSCULAR HGB CONC 32.4 g/dl (31.0-37.0); MEAN PLATELET VOLUME 10.3 fl (7.0-11.0); MONO # 0.9 (0.1-0.6); RBC 4.48 10^6/uL (3.5-6.1); RED CELL DISTRIBUTION WIDTH 13.4 % (11.5-14.5); WHITE BLOOD COUNT 7.1 10^3/uL (4.5-11.0)
[2018-11-19 12:57] LABS: URINE BILIRUBIN NEGATIVE (NEGATIVE); URINE BLOOD TRACE-INTACT (NEGATIVE); URINE GLUCOSE (UA) NEGATIVE (NEGATIVE); URINE LEUKOCYTE ESTERASE NEGATIVE Leu/uL (NEGATIVE); URINE PROTEIN NEGATIVE mg/dL (<30 mg/dL); URINE UROBILINOGEN 0.2 E.U./dL (<1 E.U./dL)
[2018-11-19 12:58] LABS: URINE APPEARANCE CLEAR (CLEAR); URINE COLOR YELLOW (YELLOW)
[2018-11-19 13:07] LABS: URINE BACTERIA FEW /hpf; URINE EPITHELIAL CELLS 0 - 2 /hpf (0-5); URINE WBC 0 - 2 /hpf (0-6)
[2018-11-19 16:20] VITALS: BP 125/72; PULSE 83; TEMP 98.1; O2SAT 100
== END 2018-11-19 16:07 | disposition home or self-care (01) ==
LOC: ED 09:52
DX: J06.9 Acute upper respiratory infection, unspecified (principal); J11.1 Influenza due to unidentified influenza virus with other respiratory manifestations; E11.9 Type 2 diabetes mellitus without complications; E78.5 Hyperlipidemia, unspecified; G20 Parkinson's disease; I10 Essential (primary) hypertension; Z87.891 Personal history of nicotine dependence
CPT/HCPCS: 71045; 80053; 81001; 83735; 85025; 87804; 99284; J7030

== ENCOUNTER 2018-11-25 19:48 | Observation (INO) | payer MEDICARE, BC ==
[2018-11-25 19:48] VITALS: BMI 28.6
[2018-11-25] MEDS ORDERED: Albuterol-Ipratrop 3 mg / 0.5 (3 ml) UD IH STA (20:49)
[2018-11-25 21:42] LABS: BASO # 0.03 K/mm3 (0.0-2.0); BASO % 0.3 % (0.0-3.0); EOS # 0.2 (0.0-0.7); EOS % 2.2 % (1.5-5.0); HEMOGLOBIN 12.4 g/dL (14.0-18.0); LYMPH # 2.2 (1.2-3.4); LYMPH % 21.7 % (22.0-35.0); MEAN CELL VOLUME 88.5 fl (80.0-105.0); MEAN CORPUSCULAR HEMOGLOBIN 29.6 pg (25.0-35.0); MEAN CORPUSCULAR HGB CONC 33.4 g/dl (31.0-37.0); MEAN PLATELET VOLUME 9.8 fl (7.0-11.0); MONO # 0.6 (0.1-0.6); RBC 4.19 10^6/uL (3.5-6.1); URINE BILIRUBIN NEGATIVE (NEGATIVE); URINE BLOOD NEGATIVE (NEGATIVE); URINE GLUCOSE (UA) NEGATIVE (NEGATIVE); URINE LEUKOCYTE ESTERASE NEGATIVE Leu/uL (NEGATIVE); URINE PROTEIN NEGATIVE mg/dL (<30 mg/dL); URINE UROBILINOGEN 0.2 E.U./dL (<1 E.U./dL); WHITE BLOOD COUNT 10.1 10^3/uL (4.5-11.0)
[2018-11-25 21:43] LABS: URINE APPEARANCE CLEAR (CLEAR); URINE COLOR LIGHT YELLOW (YELLOW)
[2018-11-25 21:52] LABS: INR 1.1; PARTIAL THROMBOPLASTIN TIME 28.2 Seconds (26.9-38.3); PROTHROMBIN TIME 12.2 SECONDS (9.4-12.5)
[2018-11-25 21:59] LABS: ALB/GLOB RATIO 1.2 (1.1-1.8); ALBUMIN 4.2 g/dL (3.0-4.8); ALT/SGPT 17 U/L (7-56); AST/SGOT 35 U/L (17-59); BLOOD UREA NITROGEN 13 mg/dL (7-21); CALCIUM 9.1 mg/dL (8.4-10.5); GFR NON-AFRICAN AMERICAN > 60
[2018-11-25 22:04] LABS: B-TYPE NATRIURETIC PEPTIDE 123 pg/mL (0-450); TROPONIN I < 0.01 ng/mL
--- NOTE | 2018-11-25 22:13 | ED PDOC ---
Arrival/HPI - General Chief Complaint: Flu-like Symptoms Time Seen by Provider: 11/25/18 20:02 Historian: Patient - History of Present Illness Narrative History of Present Illness (Text): 11/25/18 22:05 Raymundo Hercules is a 68 y/o male with past medical history including htn/hld/dm/glaucoma/femur fracture/parkinson disease, nkda, who presents to the emergency department complaining of flu like symptoms for the past few days. Patient states that he was seen on 11/19/2018 for similar symptoms. Patient states that he was offered to stay for observation but refused. Patient states having some problem breathing this evening but denies chest pain or shortness of breath, dizziness, nausea, vomiting, diarrhea, headache, wheezing, or any other complaints. PMD Staples Time/Duration: < week (6 days. ) Symptom Course: Unchanged Activities at Onset: Light Context: Home Past Medical History - Provider Review Nursing Documentation Reviewed: Yes - Infectious Disease Hx of Infectious Diseases: None - Tetanus Immunization Tetanus Immunization: Unknown - Cardiac Hx Cardiac Disorders: Yes Hx Hypertension: Yes - Pulmonary Hx Respiratory Disorders: Yes (SMOKED CIGARETTES PPD QUIT 5 YRS AGO) - Neurological Hx Neurological Disorder: Yes Hx Parkinson's Disease: Yes (hand tremors at times/dx 2 1/2 yrs ago) - HEENT Hx HEENT Disorder: Yes (eyeglasses) Hx Glaucoma: Yes - Renal Hx Renal Disorder: No - Endocrine/Metabolic Hx Diabetes Mellitus Type 2: Yes - Hematological/Oncological Hx Blood Disorders: No - Integumentary Hx Dermatological Disorder: Yes Other/Comment: bruises to knees - Musculoskeletal/Rheumatological Hx Musculoskeletal Disorders: Yes Hx Falls: Yes (recent frequent) Hx Unsteady Gait: Yes (WALKER) - Gastrointestinal Hx Gastrointestinal Disorders: No - Genitourinary/Gynecological Hx Genitourinary Disorders: Yes Hx Incontinence: Yes - Psychiatric Hx Psychophysiologic Disorder: Yes (SMOKED CIGARETTES PPD QUIT, 5 yrs ago) Hx Anxiety: Yes Hx Depression: No Hx Emotional Abuse: No Hx Physical Abuse: No Hx Schizophrenia: Yes Hx Substance Use: No - Surgical History Other/Comment: Hernia Repair umbilical, ?stomach sx thinks he had obstruction not sure, - Anesthesia Hx Anesthesia: No Hx Anesthesia Reactions: No Hx Malignant Hyperthermia: No - Suicidal Assessment Feels Threatened In Home Enviroment: No Family/Social History - Physician Review Nursing Documentation Reviewed: Yes Family/Social History: Unknown Family HX Smoking Status: Former Smoker Hx Alcohol Use: No Hx Substance Use: No Hx Substance Use Treatment: No Allergies/Home Meds Allergies/Adverse Reactions: Allergies No Known Allergies Allergy (Verified 11/25/18 20:00) Home Medications: Home Meds Medication Instructions Recorded Confirmed ALPRAZolam [Xanax] 0.25 mg PO BID PRN 11/25/18 11/25/18 Aluminum Hydroxide/Magnesium 10 ml PO BID 11/25/18 11/25/18 [Maalox Plus 30 ml] Benzonatate [Tessalon Perle] 100 mg PO BID PRN 11/25/18 11/25/18 Diclofenac Sodium [Voltaren] 2 gm TOP BID 11/25/18 11/25/18 Docusate [Colace] 200 mg PO HS 11/25/18 11/25/18 Latanoprost/Pf [Latanoprost 0.005% 1 drop BOTHEYES HS 11/25/18 11/25/18 Eye Drop] Magnesium Hydroxide [Milk Of 30 ml PO DAILY PRN 11/25/18 11/25/18 Magnesia] Pantoprazole Sodium [Protonix] 40 mg PO DAILY 11/25/18 11/25/18 hydroCHLOROthiazide [Microzide] 12.5 mg PO DAILY 11/25/18 11/25/18 Review of Systems - Physician Review All systems were reviewed & negative as marked: Yes - Review of Systems Constitutional: absent: Fatigue, Fevers Eyes: absent: Vision Changes ENT: absent: Hearing Changes Respiratory: Cough, Other (flu like symptoms. Problems with breathing. ). absent: SOB, Wheezing Cardiovascular: Edema. absent: Chest Pain, Palpitations Gastrointestinal: absent: Abdominal Pain, Diarrhea, Nausea, Vomiting Skin: absent: Rash, Skin Lesions Neurological: absent: Headache, Dizziness Physical Exam Vital Signs Temp Pulse Resp BP Pulse Ox 11/25/18 19:58 97.8 F 104 H 16 140/69 98 Temperature: Afebrile Blood Pressure: Normal Pulse: Tachycardic Respiratory Rate: Normal Appearance: Positive for: Well-Appearing, Non-Toxic, Comfortable Pain Distress: None Mental Status: Positive for: Alert and Oriented X 3 - Systems Exam Head: Present: Atraumatic, Normocephalic Pupils: Present: PERRL. No: Sluggish, Non-Reactive Extroacular Muscles: Present: EOMI Conjunctiva: Present: Normal Mouth: Present: Moist Mucous Membranes Pharnyx: Present: Normal Neck: Present: Normal Range of Motion. No: Meningeal Signs, JVD, Lymphadenopathy Respiratory/Chest: Present: Clear to Auscultation, Good Air Exchange, Wheezes (+bilateral wheezing at b/l bases). No: Respiratory Distress, Accessory Muscle Use, Decreased Breath Sounds, Rales, Rhonchi Cardiovascular: Present: Regular Rate and Rhythm, Normal S1, S2. No: Murmurs Abdomen: No: Tenderness, Distention, Peritoneal Signs Back: Present: Normal Inspection. No: CVA Tenderness, Midline Tenderness Upper Extremity: Present: Normal Inspection. No: Cyanosis, Edema Lower Extremity: Present: Normal Inspection, Edema (1+ pitting edema), NORMAL PULSES, Neurovascularly Intact. No: Tenderness Neurological: Present: GCS=15, CN II-XII Intact, Speech Normal, Motor Func Grossly Intact, Normal Sensory Function Skin: Present: Warm, Dry, Normal Color. No: Rashes Psychiatric: Present: Alert, Oriented x 3, Normal Insight, Normal Concentration Medical Decision Making ED Course and Treatment: 11/25/18 22:18 Impression: 68 y/o male who presents to the emergency department complaining of flue like symptoms. Plan: -- CXR -- EKG -- Labs -- Influenza -- Duoneb -- Reassess and disposition Prior Visits: Notes and results from previous visits were reviewed, patient was recently seen in this ER on 11/19/18 for similar symptoms, had a normal CXR, normal labs and neg flu test. He was offered observation, which he refused that time. Progress Notes: Patient is now more agreeable with staying for further observations, waiting on PMD acceptance. 11/25/18 22:00 EKG: NSR at 91 bpm, (-) acute ST changes, as read by MYRIAM. CXR : NAD, as read by MYRIAM. Influenza : (-). Lab results reviewed, troponin negative, BNP negative, rest of the labs are within normal limits. On reevaluation, patient remains awake alert and oriented 3 in no acute distress, but he is laying in bed comfortably, is smiling and in good spirits. Results discussed with the patient in great detail. States that he would still like to stay overnight in the hospital. Case discussed with Dr. Staples, agrees with plan for overnight observation consultation to Dr. Dawson and albuterol nebs as needed every 4-6 hours. - Lab Interpretations Lab Results: PT 12.2 SECONDS (9.4-12.5) 11/25/18 21:30 INR 1.10 11/25/18 21:30 APTT 28.2 Seconds (26.9-38.3) 11/25/18 21:30 Troponin I < 0.01 ng/mL D 11/25/18 21:30 NT-Pro-B Natriuret Pep 123 pg/mL (0-450) 11/25/18 21: Total Bilirubin 0.7 mg/dL (0.2-1.3) 11/25/18 21: AST 35 U/L (17-59) 11/25/18 21: ALT 17 U/L (7-56) 11/25/18 21:30 Alkaline Phosphatase 116 U/L (38-126) 11/25/18 21:30 Total Protein 7.5 g/dL (5.8-8.3) 11/25/18 21: Albumin 4.2 g/dL (3.0-4.8) 11/25/18 21: Globulin 3.3 gm/dL 11/25/18 21: Albumin/Globulin Ratio 1.2 (1.1-1.8) 11/25/18 21:30 Urine Color Light yellow (YELLOW) 11/25/18 21:30 Urine Appearance Clear (CLEAR) 11/25/18 21: Urine pH 7.0 (4.7-8.0) 11/25/18 21:30 Ur Specific Goldonna 1.010 (1.005-1.035) 11/25/18 21:30 Urine Protein Negative mg/dL (<30 mg/dL) 11/25/18: Urine Glucose (UA) Negative mg/dL (NEGATIVE) 11/25/18: Urine Ketones Negative mg/dL (NEGATIVE) 11/25/18 21: Urine Blood Negative (NEGATIVE) 11/25/18 21: Urine Nitrate Negative (NEGATIVE) 11/25/18: Urine Bilirubin Negative (NEGATIVE) 11/25/18: Urine Urobilinogen 0.2 E.U./dL (<1 E.U./dL) 11/25/18 21:30 Ur Leukocyte Esterase Negative My/uL (NEGATIVE) 11/25/18 21:30 - RAD Interpretation Radiology Orders: 11/25/18 20:02 CHEST PORTABLE [RAD] Stat - Medication Orders Current Medication Orders: Discontinued Medications Albuterol/Ipratropium (Duoneb 3 Mg/0.5 Mg (3 Ml) Ud) 3 ml IH STAT STA Stop: 11/25/18 20:50 Last Admin: 11/25/18 21:01 Dose: 3 ml - PA / EXTENSION SPECIALIST / Resident Statement / has reviewed & agrees with the documentation as recorded. Disposition/Present on Arrival - Present on Arrival Any Indicators Present on Arrival: No History of DVT/PE: No History of Uncontrolled Diabetes: No Urinary Catheter: No History of Decub. Ulcer: No History Surgical Site Infection Following: None - Disposition Have Diagnosis and Disposition been Completed?: Yes Diagnosis: Acute bronchitis Disposition: HOME/ ROUTINE Disposition Time: 22:00 Patient Plan: Observation Patient Problems: Current Active Problems Problem Status Onset Acute bronchitis Acute Condition: STABLE
[2018-11-25] MEDS ORDERED: Albuterol-Ipratrop 3 mg / 0.5 (3 ml) UD INH PRN (22:16)
[2018-11-25 22:43] VITALS: RESP 18
[2018-11-25 23:57] VITALS: O2SAT 97
[2018-11-26 07:43] VITALS: BP 157/85; PULSE 83; TEMP 98
[2018-11-26] MEDS: Insulin Reg-MEDIUM-Coverage SC SCH ×2 (09:13→11:54)
--- NOTE | 2018-11-26 09:18 | RAD ---
Date of service: 11/25/2018 HISTORY: cough COMPARISON: 11/19/2018 TECHNIQUE: 1 view obtained. FINDINGS: LUNGS: No active pulmonary disease. PLEURA: No significant pleural effusion identified, no pneumothorax apparent. CARDIOVASCULAR: No aortic atherosclerotic calcification present. Normal cardiac size. No pulmonary vascular congestion. OSSEOUS STRUCTURES: No significant abnormalities. VISUALIZED UPPER ABDOMEN: Normal. OTHER FINDINGS: None. IMPRESSION: No active disease.
[2018-11-26] MEDS ORDERED: Pantoprazole 40 mg EC Tab PO SCH (10:00)
[2018-11-26] MEDS ORDERED: levoFLOXacin 500 MG TAB PO SCH (10:00)
[2018-11-26] MEDS ORDERED: Benzocaine/Menthol (Cepacol) Lozenge MT PRN (10:52)
--- NOTE | 2018-11-26 11:48 | CON ---
DATE OF CONSULTATION: 11/26/2018 PULMONARY CONSULTATION REASON FOR CONSULTATION: Bronchitis. REFERRING PHYSICIAN: Dr. Jovi Staples. SOURCE OF HISTORY: History is obtained via extensive discussion with the night nurse. I have also reviewed the chart at length, and discussed the case with the patient at length. HISTORY OF PRESENT ILLNESS: The patient is a 68-year-old male, with past medical history significant for Parkinson's disease, hypertension, hyperlipidemia, diabetes mellitus, who presents to [facility], [place] with main complaints of cough, with occasional sputum production for the past week. The patient denies shortness of breath at rest. He also denies dyspnea on exertion. There is no history of chest pain, coughing up of blood, or chest pain - made worse with deep respirations. There is a questionable history of low grade fevers earlier in the week. The patient is afebrile now. No history of chills or infectious exposure. No history of night sweats, weight loss, or appetite change prior to the above event. No history of calf pains. No history of syncope or diaphoresis. No history of recent travel or trauma. REVIEW OF SYSTEMS: No history of nausea, vomiting, or diarrhea. No acute urinary symptoms. No new neurologic complaints. Rest of the review of systems is negative. ALLERGIES: NO KNOWN DEMONSTRABLE ALLERGIES. SOCIAL HISTORY: Negative for tobacco and negative for alcohol. FAMILY HISTORY: No inheritable diseases. HOME MEDICATIONS: Include Voltaren, Xanax, Ultram, Glucophage, Microzide, Artane, Altace, Seroquel, Protonix, insulin, Sinemet, Lipitor, Tylenol. PHYSICAL EXAMINATION: GENERAL: The patient appears quite comfortable this morning. He is not short of breath at rest. VITAL SIGNS: (Last noted in the computer): Temperature is 97.1, pulse 88, respirations 18, blood pressure 150/82. Oxygen saturation on room air - 97%. HEENT: Normocephalic, atraumatic. No JVD. CARDIOVASCULAR: Systolic ejection murmur at the lower left sternal border. No S3 gallop. LUNGS: Decreased breath sounds at the bases. Minimal rhonchi bilaterally. No wheezing. EXTREMITIES: No clubbing, cyanosis, or edema. Calves are nontender to palpation. GASTROINTESTINAL: Abdomen is soft, nontender, and nondistended. Bowel sounds are positive. SKIN: No acute rash. NEUROLOGIC: Exam limited at the present time. PERTINENT LABORATORY DATA: Chest x-ray was done last night and reviewed. This chest x-ray is not significantly changed from the previous films. Official results are pending. CBC: White count--Normal, hemoglobin 12.4, hematocrit 37.1, platelets of 280,000. Complete metabolic profile: Chloride 96, glucose 175. Rest of the metabolic profile is within normal limits. IMPRESSION: 1. Mild bronchitis. 2. Probable viral syndrome. 3. Mild anemia. 4. Parkinson's disease. PLAN: Again, I did discuss the case with the nurse at length. I have also reviewed the chart at length, and discussed the case with the patient at length. The patient presents to [facility] [place] with a 1-week history of cough with occasional sputum production. He offers no other pulmonary symptoms. In addition to the above, there is a questionable history of fevers earlier in the week. There are no fevers now. I did review the chest x-ray as above. The chest x-ray does not seem significantly changed from the previous films. Official results are pending. On physical exam, there is only minimal bronchospasm noted. In addition, there is no significant alveolar-arterial gradient. Oxygen saturation on room air is 97%. I will start the patient on low-dose prednisone this morning. Due to the above history, I will also start oral antibiotic therapy. The patient does state to feeling much better this morning and is clinically improved. He is asking to go home today. I will discuss the above with Dr. Staples later this morning. Thank you very much for this pulmonary consultation. Lopez Dawson MD OMAR
--- NOTE | 2018-11-26 20:14 | CARD ---
APPROVED REPORT Date of service: 11/25/2018 EKG Measurement Heart [id number] <Conclusion> Normal sinus rhythm Minimal voltage criteria for LVH, may be normal variant Borderline ECG
--- NOTE | 2018-11-26 20:24 | HP ---
DATE OF EXAM: 11/26/2018 HISTORY OF PRESENT ILLNESS: He came into the emergency room last night with flu-like symptoms. He is a 68-year-old white man who has been treated with Tamiflu and antibiotics at [facility]. He was in the hospital and refused to stay last week. PAST MEDICAL HISTORY: He is a 68-year-old male with history including hypertension, high cholesterol, diabetes, glaucoma, femur fracture, and Parkinson's disease. He is now in the hospital for a bronchitis flu type picture. He is on observation. He smoked cigarettes, quit 5 years ago. He has tremors in the hands and Parkinson's. He wears eye glasses, had glaucoma. He has diabetes. He has bruises to his knees. He walks with a walker. He has frequent falls. He is incontinent of urine. He quit smoking. He is anxious. No physical abuse. He has schizophrenia. He has a hernia repair, umbilical repairs, stomach surgeries. FAMILY HISTORY Unknown. SOCIAL HISTORY: A former smoker. No alcohol, no drugs. ALLERGIES: NO KNOWN DRUG ALLERGIES. MEDICATIONS: He is on a lot of medications; Xanax, Tessalon Perles, Voltaren, Colace, Lantus , milk of magnesia, Protonix, Microzide. REVIEW OF SYSTEMS: No fevers. No vision changes. No hearing changes. No sore throat. He has a cough, flu-like symptoms. No shortness of breath. He has some edema but no chest pain, no palpitations. No nausea, vomiting, constipation, or diarrhea. No skin lesions. No headaches or dizziness. He is calm. PHYSICAL EXAMINATION: VITAL SIGNS: He has a 97.8 temperature, 104 pulse, 16 respiratory rate, 140/69 blood pressure and 98% O2 sat. GENERAL: He is well-appearing, nontoxic, comfortable. Alert and oriented x3. HEENT: Head is atraumatic, normocephalic. Extraocular muscles are intact. Throat is moist. NECK: Supple. HEART: Regular rate. Normal S1, S2. LUNGS: Decreased breath sounds bilaterally. Occasional wheeze that clears with cough. ABDOMEN: Soft, nontender. Positive bowel sounds. No guarding, no rebound or CVA tenderness. EXTREMITIES: Have trace edema of bilateral lower extremities of maybe +1. NEUROLOGIC: GCS is 15. Cranial nerves II through XII grossly intact. Speech is normal. A little bit flat affect from his Parkinson's. Alert and oriented x3. SKIN: Warm and dry. Poor turgor. LYMPHATICS: No lymphadenopathy. Thyroid midline. LABORATORY DATA: He had multiple tests done. The chest x-ray was with no acute disease. He has a 10.1 white count, 12.4 hemoglobin, 37.1 hematocrit with 280 platelets. INR is 1.1. He has a 135 sodium, potassium is 4.1, BUN 13, creatinine 0.8, GFR is greater than 60, sugar is 175, calcium is 9.1, magnesium 1.9, total bilirubin is 0.7. AST is 35, ALT is 17, alkaline phosphatase 116. Lactate dehydrogenase is 399, total creatine kinase is 60. Troponin I is less than 0.01. BNP is 123, total protein is 7.5. Urine is clear. Serology was negative for the flu. ASSESSMENT AND PLAN: He is put in the hospital on observation for respiratory issues and bronchitis and weakness. We will check his labs. Jovi Staples DO MTDAida
[2018-11-26] MEDS ORDERED: Latanoprost 2.5 ml Opht Soln OU SCH (22:00)
--- NOTE | 2018-11-27 01:23 | DS ---
DISCHARGE SUMMARY: He was put in the hospital for a bronchitis type of picture of weakness. He is doing much better today. He is comfortable. He is eating. He is in good spirits. No shortness of breath or chest pain. He is looking forward to being discharged and I am going to discharge him. PHYSICAL EXAMINATION VITAL SIGNS: A 98 temperature, 83 pulse, 167/85 blood pressure, 18 respiratory rate, and 97% O2 sat on room air. HEAD: Atraumatic, normocephalic. HEART: S1, S2, regular rate. LUNGS: Decreased breath sounds, but clear. ABDOMEN: Soft. EXTREMITIES: No edema. ASSESSMENT AND PLAN: He was seen by the senior case manager and I discussed this with the senior case manager, he is okay to go. He will be discharged on Levaquin 500 mg daily for 7 days and prednisone 30 mg for 3 days, 20 mg for 3 days, 10 mg for 3 days and then stop. Also, he will be followed in the halfway and I will touch base with the nurse over there. Raymundo Cochran had a bronchitis. Jovi Staples DO
== END 2018-11-26 14:27 | disposition home or self-care (01) ==
LOC: ED 19:48 → ERH 22:14 → 5RNO 23:24
PROVIDERS: ADMIT Family Medicine; ATTEND Family Medicine
DX: J20.9 Acute bronchitis, unspecified (principal); G20 Parkinson's disease; E11.9 Type 2 diabetes mellitus without complications; I10 Essential (primary) hypertension; E78.5 Hyperlipidemia, unspecified; F20.9 Schizophrenia, unspecified; E78.00 Pure hypercholesterolemia, unspecified; D64.9 Anemia, unspecified; R53.1 Weakness; Z87.891 Personal history of nicotine dependence
CPT/HCPCS: 71045; 80053; 81003; 82550; 82948; 83615; 83735; 83880; 84484; 85025; 85610; 85730; 87086; 87804; 93005; 99284; G0378